=== PATIENT | female | born 1965 | race Two or more races ===

== ENCOUNTER 2020-05-05 15:17 | Outpatient (REF) | payer MEDICARE, MEDICAID, SELFPAY ==
--- NOTE | ~2020-05-05 | US_ITS ---
EXAMINATION: US THYROID CLINICAL INFORMATION: Thyroid nodule COMPARISON: Previous thyroid ultrasound July 2016 TECHNIQUE: Linear transducer grayscale and color Doppler examination with attention to the region of the thyroid. FINDINGS: SIZE: Measurements of the thyroid lobes and nodules are given in sagittal, anteroposterior and transverse dimensions respectively. Right Thyroid Lobe: 5.2 x 2.5 x 1.6 cm, volume 11 mL. Parenchyma: The gland echotexture is heterogeneous. Thyroid vascularity is increased. Left Thyroid Lobe: 5.5 x 2.2 x 2 cm, volume 12 mL. Parenchyma: The gland echotexture is heterogeneous. Thyroid vascularity is increased. Isthmus: 1 cm in maximum AP dimension. Estimated total number of nodules greater than or equal to 1 cm: 1. [employer] nodules are described as follows: 1. Location: Left mid. Size: 1.1 x 0.6 x 0.75 cm, volume 0.26 mL. Nodule characteristics: Composition: Solid (2). Echogenicity: Hyperechoic (1). Shape: Not taller than wide (0). Margins: Smooth (0). Echogenic Foci: None (0). ACR TI-RADS total points: Total 3 ACR TI-RADS category: 3 NODES: No lymphadenopathy is seen in the tissue surrounding the thyroid gland. US/US thyroid IMPRESSION: Enlarged heterogeneous hypervascular thyroid gland. Solitary stable left thyroid nodule. ACR TI-RADS RECOMMENDATIONS: Ultrasound-guided fine-needle aspiration, followup ultrasound, no further follow up. * TR1 (0 point) and TR 2 (2 points): No FNA or follow up * TR3 (3 points): FNA if more than or equal to 2.5 cm in maximum dimension, follow up in 1, 3 and 5 years if 1.5 to 2.4 cm in maximum dimension. * TR4 (4-6 points): FNA if more than or equal to 1.5 cm in maximum dimension, follow up in 1, 2, 3 and 5 years if 1 to 1.4 cm in maximum dimension. * TR5 (more than or equal to 7 points): FNA if more than or equal to 1 cm in maximum dimension, follow up every year for 5 years if 0.5 to 0.9 cm in maximum dimension. * TR3, TR4 or TR5 nodules that are below the size threshold for follow up receive no follow up.
== END 2020-05-05 15:18 | disposition home or self-care (01) ==
LOC: HO.HMGCX 15:17
PROVIDERS: Visit Provider Emergency Medicine
DX: E04.1 Nontoxic single thyroid nodule (principal)
CPT/HCPCS: 76536

== ENCOUNTER 2020-08-03 13:48 | Outpatient (REF) | payer MEDICARE, MEDICAID, SELFPAY ==
--- NOTE | ~2020-08-03 | MM_ITS ---
EXAMINATION: MM SCREENING DIGITAL BREAST TOMOSYNTHESIS, BILATERAL CLINICAL INFORMATION: Screening. Asymptomatic. The lifetime risk of breast cancer based on the Tyrer-Cuzick Model is 3.9%. COMPARISON: Mammography: January 07, 2018 and studies dating back to July 19, 2011 TECHNIQUE: Digital breast tomosynthesis is performed in both the craniocaudal and mediolateral oblique views along with computer-aided detection (CAD). Synthesized 2D images are generated from the tomosynthesis. FINDINGS: There are scattered areas of fibroglandular density (ACR BI-RADS breast composition Category b). There are no significant masses, abnormal calcifications, or other abnormalities. MM/MM tomosynthesis screening BI IMPRESSION: There are no significant changes from prior study. ASSESSMENT: BI-RADS 1: Negative RECOMMENDATION: Routine annual mammography screening. This patient's information was entered into a reminder system with a target due date for their next mammogram.
--- NOTE | ~2020-08-03 | MM_ITS ---
EXAMINATION: BONE DENSITOMETRY CLINICAL INDICATION: Encounter for screening for osteoporosis. Menopausal and female climacteric states. COMPARISON: This is the patient's baseline examination. TECHNIQUE: Using a FlyReadyJet DXA System (software version: 13.1) manufactured by [employer], dual-energy x-ray absorptiometry was performed of the lumbar spine and left hip. The images are of good technical quality. Summary results are attached. FINDINGS: AP SPINE L1-L4: BMD 0.876 g/cm2, Z-score -1.6, T-score -2.5, osteoporosis. LEFT FEMUR, NECK: BMD 0.615 g/cm2, Z-score -1.9, T-score -3.0, osteoporosis. LEFT FEMUR, TOTAL: BMD 0.657 g/cm2, Z-score -2.0, T-score -2.8, osteoporosis. IDENTIFIED RISK FACTORS: Anticonvulsant. Menopause. HISTORY OF FRACTURE: None listed. MEDICATIONS: None listed. MM/XR DEXA axial skeleton IMPRESSION: 1. DIAGNOSIS: Osteoporosis based on the lowest T-score value of -3.0 in the femoral neck applying World Health Organization criteria. 2. 10-YEAR FRACTURE RISK PREDICTION, FRAX: Major osteoporotic fracture (clinical spine, forearm, hip or shoulder) 5.8%. Hip fracture 1.8%. 3. Treatment Recommendations: NOF guidelines recommend consideration for treatment in postmenopausal women and men age 50 and older presenting with the following: -A hip or vertebral (clinical or morphometric) fracture. -T-score less than or equal to -2.5 at the femoral neck or spine after appropriate evaluation to exclude secondary causes. -Low bone mass at the hip or spine and a 10-year fracture probability by FRAX of greater than or equal to 3% for hip fracture or greater than or equal to 20% for major osteoporotic fracture based on the [place] adapted WHO algorithm. 4. Other Recommendations: All treatment decisions require clinical judgment and consideration of individual patient factors, including patient preferences, comorbidities, previous drug use, risk factors not captured in the FRAX model (e.g. frailty, falls, vitamin D deficiency, increased bone turnover, interval significant decline in bone density) and possible under or overestimation of fracture risk by FRAX. Additional medical evaluation for secondary cause of low bone mineral density may be appropriate. FUTURE SCAN RECOMMENDATION: People with diagnosed cases of osteoporosis or at high risk for fracture should have regular bone mineral density tests. For patients eligible for Medicare, routine testing is allowed once every 2 years. The testing frequency can be increased to one year for patients who have rapidly progressing disease, those who are receiving or discontinuing medical therapy to restore bone mass, or have additional risk factors.
== END 2020-08-03 13:49 | disposition home or self-care (01) ==
LOC: HO.MAMMO 13:48
PROVIDERS: PCP Advanced Practice Midwife; Visit Provider Advanced Practice Midwife
DX: Z12.31 Encounter for screening mammogram for malignant neoplasm of breast (principal); Z13.820 Encounter for screening for osteoporosis; R27.0 Ataxia, unspecified; Z78.0 Asymptomatic menopausal state; Z79.899 Other long term (current) drug therapy
CPT/HCPCS: 77063; 77067; 77080

== ENCOUNTER 2021-08-17 15:45 | Outpatient (REF) | payer MEDICARE, MEDICAID, SELFPAY ==
--- NOTE | ~2021-08-17 | MM_ITS ---
EXAMINATION: MM SCREENING DIGITAL BREAST TOMOSYNTHESIS, BILATERAL CLINICAL INFORMATION: Screening. Asymptomatic. The lifetime risk of breast cancer based on the Tyrer-Cuzick Model is 12%. COMPARISON: Mammography: 08/03/2020, 01/07/2018, 12/03/2016 TECHNIQUE: Digital breast tomosynthesis is performed in both the craniocaudal and mediolateral oblique views along with computer-aided detection (CAD). Synthesized 2D images are generated from the tomosynthesis. FINDINGS: There are scattered areas of fibroglandular density (ACR BI-RADS breast composition Category b). There are no significant masses, abnormal calcifications, or other abnormalities. There is punctate deodorant artifact overlying the bilateral axilla, related to the skin on tomography. There is no developing density or interval architectural abnormality. No significant changes. MM/MM tomosynthesis screening BI IMPRESSION: No mammographic evidence of malignancy. ASSESSMENT: BI-RADS 2: Benign RECOMMENDATION: Routine annual mammography screening. This patient's information was entered into a reminder system with a target due date for their next mammogram.
== END 2021-08-17 15:46 | disposition home or self-care (01) ==
LOC: HO.MAMMO 15:45
PROVIDERS: Visit Provider Advanced Practice Midwife
DX: Z12.31 Encounter for screening mammogram for malignant neoplasm of breast (principal)
CPT/HCPCS: 77063; 77067

== ENCOUNTER 2022-06-26 13:21 | Outpatient (REF) | payer MEDICARE, MEDICAID, SELFPAY ==
--- NOTE | ~2022-06-26 | US_ITS ---
EXAMINATION: US THYROID CLINICAL INFORMATION: Nontoxic goiter. COMPARISON: Ultrasound thyroid 05/05/2020 and 08/06/2016. TECHNIQUE: Linear transducer grayscale and color Doppler examination with attention to the region of the thyroid. FINDINGS: SIZE: Measurements of the thyroid lobes and nodules are given in sagittal, anteroposterior and transverse dimensions respectively. Right Thyroid Lobe: 5.2 x 2.8 x 1.8 cm, volume 13.7 mL. Previously 5.2 x 2.5 x 1.6 cm, volume 10.9 mL. Parenchyma: The gland echotexture is heterogeneous. Thyroid vascularity is increased. Left Thyroid Lobe: 5.3 x 2.5 x 2.0 cm, volume 13.9 mL. Previously 5.5 x 2.2 x 2.0 cm, volume 12.2 mL. Parenchyma: The gland echotexture is heterogeneous. Thyroid vascularity is increased. Isthmus: 1.2 cm in maximum AP dimension. Previously 1.0 cm. Estimated total number of nodules greater than or equal to 1 cm: 1. [employer] [place] nodules are described as follows: 1. Location: Left mid. Size: 1.3 x 0.7 x 1.1 cm, volume 0.52 mL. Previously: 1.1 x 0.6 x 0.8 cm, volume 0.26 mL. Nodule characteristics: Composition: Solid (2). Echogenicity: Hyperechoic (1). Shape: Not taller than wide (0). Margins: Ill-defined (0). Echogenic Foci: None (0). ACR TI-RADS total points: 3 Previous: 3 ACR TI-RADS category: 3 Previous: 3 Significant change in size (>/= 20% in 2 dimensions and minimal increase of 2 mm or 50% or greater increase in volume): None. Change in features: None. Change in ACR TI-RADS risk category: None. NODES: No lymphadenopathy is seen in the tissue surrounding the thyroid gland. US/US thyroid IMPRESSION: Heterogeneous hypervascular thyroid gland, likely goiter. Nonsuspicious stable left lobe nodule. ACR TI-RADS RECOMMENDATION REFERENCE: Ultrasound-guided fine-needle aspiration, followup ultrasound, no further followup. * TR1 (0 point) and TR2 (2 points): No FNA or follow up. * TR3 (3 points): FNA if more than or equal to 2.5 cm in maximum dimension, followup ultrasound in 1, 3 and 5 years if 1.5 to 2.4 cm in maximum dimension. * TR4 (4-6 points): FNA if more than or equal to 1.5 cm in maximum dimension, followup ultrasound in 1, 2, 3 and 5 years if 1 to 1.4 cm in maximum dimension. * TR5 (more than or equal to 7 points): FNA if more than or equal to 1 cm in maximum dimension, followup ultrasound every year for 5 years if 0.5 to 0.9 cm in maximum dimension. * TR3, TR4 or TR5 nodules that are below the size threshold for followup receive no follow up.
== END 2022-06-26 13:22 | disposition home or self-care (01) ==
LOC: HO.HMGCX 13:21
PROVIDERS: PCP Advanced Practice Midwife; Visit Provider Pediatrics
DX: E04.9 Nontoxic goiter, unspecified (principal)
CPT/HCPCS: 76536

== ENCOUNTER 2022-08-28 14:11 | Outpatient (REF) | payer MEDICARE, MEDICAID, SELFPAY ==
--- NOTE | ~2022-08-28 | MM_ITS ---
EXAMINATION: MM SCREENING DIGITAL BREAST TOMOSYNTHESIS, BILATERAL CLINICAL INFORMATION: Screening. Asymptomatic. The lifetime risk of breast cancer based on the Tyrer-Cuzick Model is 9%. COMPARISON: Mammography: 08/17/2021, 08/03/2020, 01/07/2018 TECHNIQUE: Digital breast tomosynthesis is performed in both the craniocaudal and mediolateral oblique views along with computer-aided detection (CAD). Synthesized 2D images are generated from the tomosynthesis. FINDINGS: There are scattered areas of fibroglandular density (ACR BI-RADS breast composition Category b). There are no significant masses, abnormal calcifications, or other abnormalities. Parenchymal pattern is similar to prior studies. There is no developing density or architectural abnormality. The axilla and skin contours are unremarkable. No significant changes. MM/MM tomosynthesis screening BI IMPRESSION: No mammographic evidence of malignancy. ASSESSMENT: BI-RADS 1: Negative RECOMMENDATION: Routine annual mammography screening. This patient's information was entered into a reminder system with a target due date for their next mammogram.
== END 2022-08-28 14:12 | disposition home or self-care (01) ==
LOC: HO.MAMMO 14:11
PROVIDERS: PCP Internal Medicine; Visit Provider Internal Medicine
DX: Z12.31 Encounter for screening mammogram for malignant neoplasm of breast (principal)
CPT/HCPCS: 77063; 77067

== ENCOUNTER 2022-10-08 15:32 | Outpatient (AMB) | payer MEDICARE, MEDICAID, SELFPAY ==
--- NOTE | 2022-10-08 15:33 | MHC.OFFVIS ---
Intake Vital Signs 10/08/22 15:35 Height 4 ft 10.46 in Weight 126 lb 8.725 oz BMI 26.0 BP 126/68 Blood Pressure Location Rt brachial Position Sitting Pulse 76 Pulse Source Pulse Oximeter Intake Visit Reasons: Hypothyroidism Intake Note: New patient present today for Hypothyroidism. 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 First diagnosed with Hypothyroidism 4 yrs with labs revealing hypothyroidism . Currently using levothyroxine 75 ug . On this dose for 2 mos Denies -fatigue, +weight gain, -cold intolerance, -dry skin, -hair loss, -constipation. There is hx of hyperlipidemia . admits obstructive sx of goiter such as choking and swallowing . Denies consuming any kelp or seaweed. Denies taking amiodarone. postmenopausal Biotin: No Daughter has hypothyroidism EXAMINATION: US THYROID CLINICAL INFORMATION: Nontoxic goiter. COMPARISON: Ultrasound thyroid 05/05/2020 and 08/06/2016. TECHNIQUE: Linear transducer grayscale and color Doppler examination with attention to the region of the thyroid. FINDINGS: ? SIZE: Measurements of the thyroid lobes and nodules are given in sagittal, anteroposterior and transverse dimensions respectively. Right Thyroid Lobe: 5.2 x 2.8 x 1.8 cm, volume 13.7 mL. Previously 5.2 x 2.5 x 1.6 cm, volume 10.9 mL. Parenchyma: The gland echotexture is heterogeneous. Thyroid vascularity is increased. Left Thyroid Lobe: 5.3 x 2.5 x 2.0 cm, volume 13.9 mL. Previously 5.5 x 2.2 x 2.0 cm, volume 12.2 mL. Parenchyma: The gland echotexture is heterogeneous. Thyroid vascularity is increased. Isthmus: 1.2 cm in maximum AP dimension. Previously 1.0 cm. Estimated total number of nodules greater than or equal to 1 cm: 1. [employer] nodules are described as follows: 1.? Location: Left mid. ?? ? Size: 1.3 x 0.7 x 1.1 cm, volume 0.52 mL. ?? ? Previously: 1.1 x 0.6 x 0.8 cm, volume 0.26 mL. ?? ? Nodule characteristics: ?? ? Composition: Solid (2). ?? ? Echogenicity: Hyperechoic (1). ?? ? Shape: Not taller than wide (0). ?? ? Margins: Ill-defined (0). ?? ? Echogenic Foci: None (0).? ACR TI-RADS total points: 3 Previous: 3 ?? ? ACR TI-RADS category: 3 Previous: 3 ? Significant change in size (>/= 20% in 2 dimensions and minimal increase of 2 mm or 50% or greater increase in volume): None. ?? ? Change in features: None. ?? ? Change in ACR TI-RADS risk category: None. NODES: No lymphadenopathy is seen in the [facility] Medical History (Updated 10/08/22 @ 15:45 by Gen Leon MD) Hypothyroidism Surgical History History of surgery History of tubal ligation Family History Mother No known health problems Father No known health problems Social History Alcohol intake: never Patient Tobacco Use Status: Former Tobacco user Physical Exam Vital Signs: BMI result Body Mass Index 26.0 HEENT reveals absence of lid lag , stare or proptosis or eyebrow loss. Thyroid gland is full to palpation weighs about 20 g . No nodules or tenderness palpated. There is no cervical adenopathy palpated. Lungs CTA. Heart S1, S2 Reg R/R -M/R/G. Abdominal exam benign. Skin exam reveals absence of dryness or thyroid dermopathy or vitiligo. Nail exam reveals absence of thyroid acropachy or oncholysis. Neurologic exam reveals 2+ reflexes . Muscle Strength is 5/5 proximally. There are no tremors in upper extremities. 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 She is currently replaced on 75 mcg levothyroxine. She appears to be clinically euthyroid. She has a small left thyroid nodule which appears to be non suspicious on ultrasound. Plan is to check TSH, free T4 anti-peroxidase antibodies adjust levothyroxine accordingly. We talked extensively about possibly biopsying the left thyroid nodule but the patient is reluctant to do so at the present time and nodule seems to be of low risk and will be followed with serial ultrasounds Orders: Orders Free T4 (Free Thyroxine) Today E03.9 - Hypothyroidism, unspecified Thyroid Stimulating Hormone Today E03.9 - Hypothyroidism, unspecified Thyroid Peroxidase Antibodies Today E03.9 - Hypothyroidism, unspecified Coding Level of Care Code New Pt Level 4 (46301) Diagnoses Hypothyroidism E03.9
[2022-10-08 15:35] VITALS: BP 126/68; PULSE 76; BMI 26.0
== END 2022-10-08 16:23 | disposition home or self-care (01) ==
PROVIDERS: PCP Internal Medicine; Visit Provider Internal Medicine Endocrinology, Diabetes & Metabolism
DX: E03.9 Hypothyroidism, unspecified (principal)
CPT/HCPCS: 99204

== ENCOUNTER → 2022-10-08 15:32 | Outpatient (BNVA) | payer MEDICARE, MEDICAID, SELFPAY | PROVIDERS: Visit Provider Internal Medicine Endocrinology, Diabetes & Metabolism | DX: E03.9 Hypothyroidism, unspecified (principal) | CPT/HCPCS: 99202 ==

== ENCOUNTER 2022-11-11 15:01 | Outpatient (REF) | payer MEDICARE, MEDICAID, SELFPAY ==
[2022-11-11 17:53] LABS: Free T4 (Free Thyroxine) 1.34 ng/dL (0.71-1.85); Thyroid Stimulating Hormone 0.03 uIU/mL (0.32-4.0)
[2022-11-12 10:18] LABS: Thyroid Peroxidase Antibodies >900 IU/mL (<9)
== END 2022-11-11 15:02 | disposition home or self-care (01) ==
LOC: HO.LAB 15:01
PROVIDERS: Visit Provider Internal Medicine Endocrinology, Diabetes & Metabolism
DX: E03.9 Hypothyroidism, unspecified (principal)
CPT/HCPCS: 36415; 84439; 84443; 86376

== ENCOUNTER 2023-03-11 14:17 | Outpatient (REF) | payer OTHER, SELFPAY ==
[2023-03-11 18:01] LABS: Anion Gap 10 (12-20); Blood Urea Nitrogen 14 mg/dL (9-16); Calcium 10.9 mg/dL (8.4-10.2); Carbon Dioxide 27 mmol/L (22-29); Chloride 108 mmol/L (96-108); Estimated Glomerular Filt Rate > 60; Glucose Random 81 mg/dL (60-115); Potassium 4.7 mmol/L (3.3-5.1); Sodium 140 mmol/L (135-145)
[2023-03-11 18:17] LABS: TSH reflex Free T4 2.32 uIU/mL (0.32-4.0)
[2023-03-12 01:56] LABS: Vitamin B12 500 pg/mL (200-900)
== END 2023-03-11 14:18 | disposition home or self-care (01) ==
LOC: HO.CHCLDS 14:17
PROVIDERS: Visit Provider Internal Medicine
DX: R41.3 Other amnesia (principal); E03.9 Hypothyroidism, unspecified
CPT/HCPCS: 36415; 80048; 82607; 82746; 84443

== ENCOUNTER 2023-04-15 13:56 | Outpatient (AMB) | payer MEDICARE, MEDICAID, SELFPAY ==
[2023-04-15 14:05] VITALS: BP 120/58; PULSE 64; BMI 26.1
--- NOTE | 2023-04-15 14:05 | MHC.OFFVIS ---
Intake Vital Signs 04/15/23 14:05 Height 4 ft 10.46 in Weight 126 lb 15.78 oz BMI 26.1 BP 120/58 L Blood Pressure Location Lt brachial Position Sitting Pulse 64 Pulse Source Pulse Oximeter Intake Visit Reasons: f/u hypothyroidism/ thyroid nodule-confirmed Intake Note: Patient presents today for Hypothyroidism and Thyroid Nodule. 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 First diagnosed with Hypothyroidism 4 yrs with labs revealing hypothyroidism . Currently using levothyroxine 50 ug . On this dose for 2 mos Denies -fatigue, +weight gain, -cold intolerance, -dry skin, -hair loss, -constipation. There is hx of hyperlipidemia . admits obstructive sx of goiter such as choking and swallowing . Denies consuming any kelp or seaweed. Denies taking amiodarone. postmenopausal Biotin: No Daughter has hypothyroidism EXAMINATION: US THYROID CLINICAL INFORMATION: Nontoxic goiter. COMPARISON: Ultrasound thyroid 05/05/2020 and 08/06/2016. TECHNIQUE: Linear transducer grayscale and color Doppler examination with attention to the region of the thyroid. FINDINGS: ? SIZE: Measurements of the thyroid lobes and nodules are given in sagittal, anteroposterior and transverse dimensions respectively. Right Thyroid Lobe: 5.2 x 2.8 x 1.8 cm, volume 13.7 mL. Previously 5.2 x 2.5 x 1.6 cm, volume 10.9 mL. Parenchyma: The gland echotexture is heterogeneous. Thyroid vascularity is increased. Left Thyroid Lobe: 5.3 x 2.5 x 2.0 cm, volume 13.9 mL. Previously 5.5 x 2.2 x 2.0 cm, volume 12.2 mL. Parenchyma: The gland echotexture is heterogeneous. Thyroid vascularity is increased. Isthmus: 1.2 cm in maximum AP dimension. Previously 1.0 cm. Estimated total number of nodules greater than or equal to 1 cm: 1. [employer] Crew[employer] nodules are described as follows: 1.? Location: Left mid. ?? ? Size: 1.3 x 0.7 x 1.1 cm, volume 0.52 mL. ?? ? Previously: 1.1 x 0.6 x 0.8 cm, volume 0.26 mL. ?? ? Nodule characteristics: ?? ? Composition: Solid (2). ?? ? Echogenicity: Hyperechoic (1). ?? ? Shape: Not taller than wide (0). ?? ? Margins: Ill-defined (0). ?? ? Echogenic Foci: None (0).? ACR TI-RADS total points: 3 Previous: 3 ?? ? ACR TI-RADS category: 3 Previous: 3 ? Significant change in size (>/= 20% in 2 dimensions and minimal increase of 2 mm or 50% or greater increase in volume): None. ?? ? Change in features: None. ?? ? Change in ACR TI-RADS risk category: None. NODES: No lymphadenopathy is seen in the ti [facility] Medical History (Updated 10/08/22 @ 15:45 by Gen Leon MD) Hypothyroidism Surgical History History of tubal ligation History of surgery Family History Mother No known health problems Father No known health problems Social History Alcohol intake: never Patient Tobacco Use Status: Former Tobacco user Physical Exam Vital Signs: Last Vital Signs Pulse 64 04/15/23 14:05 BP 120/58 L 04/15/23 14:05 BMI result Body Mass Index 26.1 HEENT reveals absence of lid lag , stare or proptosis or eyebrow loss. Thyroid gland is full to palpation weighs about 20 g . No nodules or tenderness palpated. There is no cervical adenopathy palpated. Lungs CTA. Heart S1, S2 Reg R/R -M/R/G. Abdominal exam benign. Skin exam reveals absence of dryness or thyroid dermopathy or vitiligo. Nail exam reveals absence of thyroid acropachy or oncholysis. Neurologic exam reveals 2+ reflexes . Muscle Strength is 5/5 proximally. There are no tremors in upper extremities. 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 She is currently replaced on 50 mcg levothyroxine. She appears to be clinically and biochemically euthyroid. She has a small left thyroid nodule which appears to be non suspicious on ultrasound. Plan is to continue the current therapy. At this point, patient can follow up with the primary care provider who can check a thyroid ultrasound in about 1-2 years time. If his any difficulty maintaining a normal TSH with the [place] change in the size or characteristics of the nodule , the patient returned back to endocrinology Coding Level of Care Code Est Pt Level 3 (32982) Diagnoses Hypothyroidism E03.9
== END 2023-04-15 14:28 | disposition home or self-care (01) ==
PROVIDERS: PCP Internal Medicine; Visit Provider Internal Medicine Endocrinology, Diabetes & Metabolism
DX: E03.9 Hypothyroidism, unspecified (principal)
CPT/HCPCS: 99213

== ENCOUNTER → 2023-04-15 13:56 | Outpatient (BNVA) | payer OTHER, SELFPAY | PROVIDERS: PCP Internal Medicine; Visit Provider Internal Medicine Endocrinology, Diabetes & Metabolism | DX: E03.8 Other specified hypothyroidism (principal); E06.3 Autoimmune thyroiditis; Z79.899 Other long term (current) drug therapy | CPT/HCPCS: 99212 ==

== ENCOUNTER 2023-04-29 14:30 | Outpatient (AMB) | payer OTHER, SELFPAY ==
--- NOTE | 2023-04-29 14:44 | A.OFFVIS_ITS ---
Intake Vital Signs 04/29/23 14:51 Height 4 ft 10 in Weight 122 lb BMI 25.5 BP 113/61 Blood Pressure Location Lt brachial Position Sitting Pulse 75 Intake Visit Reasons: Postive colorectal CA screening using cologuard Intake Note: New consult for Positive cologuard. Patient cc: acid reflex with burning sensation. Senior Customer Service Representative Required: No Accompanied by: Mother Allergies No Known Allergies Allergy (Verified 04/29/23 14:43) HPI Postive colorectal CA screening using cologuard 2 HPI Details 57 year old? female with past medical hi story of hypothyroidism, hypercholesteremia, history of seizure as a child, Craniotomy x2 is here today for pre colonoscopy screening.? Patient was sent to us by her PCP.? This is her first colonoscopy screening.? Patient had positive Cologuard testing. Denies melena, hematochezia, unintentional weight loss or ribbon like stools. Patient denies any gastrointestinal symptoms in the past or at present.? Denies any personal or family history of gastrointestinal disease, colon polyps, or cancer.? In 1988 patient had been put under anesthesia for craniotomy to remove tumor and she had severe reaction when she went into a coma for 2 weeks. Patient had another surgery for same in 1995, patient did well with that surgery no issues with anesthesia. She does not remember what kind of medication was used for her 1st surgery. ? Negative for history of sleep apnea.? Denies any history of cardiac, renal, pulmonary, or hepatic disease.?? No history of infectious? diseases like hepatitis A, B, C, HIV or tuberculosis.? Patient is not on any anticoagulation therapy. [facility] Medical History (Updated 10/08/22 @ 15:45 by Gen Leon MD) Hypothyroidism Surgical History History of tubal ligation History of surgery Family History Mother No known health problems Father No known health problems Social History Alcohol intake: never Patient Tobacco Use Status: Former Tobacco user Review of Systems Const Denies weight gain and Denies weight loss ENT Reports no additional complaints, Denies dysphagia and Denies odynophagia Card Reports no additional complaints Resp Reports no additional complaints GI Denies abdominal pain, Denies belching, Denies melena, Denies bloating, Denies change in bowel habits, Reports constipation, Denies dysphagia, Denies excessive flatus, Denies dyspepsia, Reports heartburn (Occasional), Denies diarrhea, Denies loose stools, Denies nausea, Denies odynophagia and Denies vomiting Reports no additional complaints Musc Reports no additional complaints Neuro Reports no additional complaints Psych Reports no additional complaints Endo Reports no additional complaints Physical Exam Vital Signs: Last Vital Signs Pulse 75 04/29/23 14:51 BP 113/61 04/29/23 14:51 BMI result Body Mass Index 25.5 Const General: healthy appearing, no acute distress and well developed Nutritional Appearance: well nourished Orientation/consciousness: patient oriented x3 Resp Effort & Inspection: normal respiratory effort, able to speak in complete sentences, no tracheal deviation and symmetric chest movement Auscultation: clear to auscultation bilaterally Cardio Rate: regular rate GI Inspection: Yes normal to inspection and No distended Palpation (GI): Soft to palpation, not firm, nontender and No hepatosplenomegaly present Auscultation: normal bowel sounds General: Yes no CVA tenderness Back/Spine/Pelvis Back: no CVA tenderness Skin General skin exam: elasticity normal, turgor normal and dry skin Neuro General: patient oriented x3 Psych Appearance: grossly normal Mental Status: mental status grossly normal Assessment & Plan Assessment & Plan (1) Positive colorectal cancer screening using Cologuard test: Code(s): R19.5 - Other fecal abnormalities (2) GERD (gastroesophageal reflux disease): Code(s): K21.9 - Gastro-esophageal reflux disease without esophagitis Qualifiers: Esophagitis presence: esophagitis presence not specified Qualified Code(s): K21.9 - Gastro-esophageal reflux disease without esophagitis Plan Patient denies any GI, cardiac or respiratory symptoms.? Patient does admit to occasional acid reflux depending on what she eats. Cologuard positive. Denies any history of sleep apnea.? No history infectious diseases in the past or present.? Not on any anticoagulation therapy.? No family or personal history of colon cancer or polyps.? Patient denies melena, hematochezia, unintentional weight loss or ribbon like stools.? Discussed at length the pre-procedure,? prep, diet & medications as well as what to expect prior, during and after the procedure.?? Stressed the importance of good bowel prep. ?Recommended the use of Vaseline or Calmoseptine OTC & baby wipes with bowel movements to promote comfort.? ?Patient verbalizes understanding and agrees to plan of care.? She was given the opportunity to ask questions and all questions answered.? We will see her after the procedure.? Medications: New bisacodyl (Dulcolax (bisacodyl)) take 4 tabs at noon the day before your colonoscopy 20 mg (4 x 5 mg) PO ONCE 1 day 4 tabs 0RF Z12.11 - Encounter for screening for malignant neoplasm of colon polyethylene glycol 3350 (Miralax) As directed by gastroenterology department at [facility] 238 grams PO ONCE 238 grams 0RF Z12.11 - Encounter for screening for malignant neoplasm of colon Coding Level of Care Code New Pt Level 3 (64229) Diagnoses Positive colorectal cancer screening using Cologuard test R19.5 Gastroesophageal reflux disease, unspecified whether esophagitis present K21.9 Esophagitis presence: esophagitis presence not specified Time Spent (min) 40 Comment 30 minutes spent with patient and additional 10 minutes spent reviewing her records
[2023-04-29 14:51] VITALS: BP 113/61; PULSE 75; BMI 25.5
== END 2023-04-29 15:19 | disposition home or self-care (01) ==
PROVIDERS: PCP Internal Medicine; Visit Provider Nurse Practitioner Family
DX: R19.5 Other fecal abnormalities (principal); K21.9 Gastro-esophageal reflux disease without esophagitis
CPT/HCPCS: 99203

== ENCOUNTER → 2023-04-29 14:30 | Outpatient (BNVA) | payer OTHER, SELFPAY | PROVIDERS: PCP Internal Medicine; Visit Provider Nurse Practitioner Family | DX: R19.5 Other fecal abnormalities (principal); K21.9 Gastro-esophageal reflux disease without esophagitis | CPT/HCPCS: 99202 ==

== ENCOUNTER 2023-05-13 12:14 | Outpatient (REF) | payer OTHER, SELFPAY ==
--- NOTE | ~2023-05-13 | XR_ITS ---
EXAMINATION: XR HIP, RIGHT XR LUMBAR SPINE CLINICAL INFORMATION: Right hip pain after fall in a patient with osteoporosis. COMPARISON: None available. TECHNIQUE: AP and lateral views of the right hip. 3 views of the lumbar spine. FINDINGS: RIGHT HIP: Small pelvic calcifications are likely vascular. Right hip alignment is preserved. Mild degenerative changes in the right hip. The bones are diffusely demineralized. LUMBAR SPINE: Mild degenerative changes in the bilateral sacroiliac joints. The bones are diffusely demineralized. Facet arthritis in the mid to lower lumbar spine. Mild degenerative changes in the imaged lower thoracic spine. For the purposes of this report only, the most inferior vertebral body with what appear to be hypoplastic ribs will be referred to as T12. Dedicated imaging of the spine is recommended to assure appropriate enumeration of vertebral body levels prior to any procedure/intervention. Multilevel lumbar spondylosis with moderate loss of disc space height at what will be referred to as L4 and L5. Grade 1 anterolisthesis at L4-L5. Degenerative changes of loss of disc space height at S1. Possible spondylolysis at L4-L5 and L5-S1. XR/XR hip RT min 2V IMPRESSION: 1. Mild degenerative changes in the right hip. 2. Multilevel lumbar spondylosis with moderate loss of disc space height at what will be referred to as L4 and L5. Grade 1 anterolisthesis at L4-L5. Possible spondylolysis at L4-L5 and L5-S1. 3. Additional imaging with MRI should be considered for further evaluation for this patient with bony demineralization and recent fall as MRI is much more sensitive for detection of pathology.
--- NOTE | ~2023-05-13 | XR_ITS ---
EXAMINATION: XR HIP, RIGHT XR LUMBAR SPINE CLINICAL INFORMATION: Right hip pain after fall in a patient with osteoporosis. COMPARISON: None available. TECHNIQUE: AP and lateral views of the right hip. 3 views of the lumbar spine. FINDINGS: RIGHT HIP: Small pelvic calcifications are likely vascular. Right hip alignment is preserved. Mild degenerative changes in the right hip. The bones are diffusely demineralized. LUMBAR SPINE: Mild degenerative changes in the bilateral sacroiliac joints. The bones are diffusely demineralized. Facet arthritis in the mid to lower lumbar spine. Mild degenerative changes in the imaged lower thoracic spine. For the purposes of this report only, the most inferior vertebral body with what appear to be hypoplastic ribs will be referred to as T12. Dedicated imaging of the spine is recommended to assure appropriate enumeration of vertebral body levels prior to any procedure/intervention. Multilevel lumbar spondylosis with moderate loss of disc space height at what will be referred to as L4 and L5. Grade 1 anterolisthesis at L4-L5. Degenerative changes of loss of disc space height at S1. Possible spondylolysis at L4-L5 and L5-S1. XR/XR lumbar spine 2-3V IMPRESSION: 1. Mild degenerative changes in the right hip. 2. Multilevel lumbar spondylosis with moderate loss of disc space height at what will be referred to as L4 and L5. Grade 1 anterolisthesis at L4-L5. Possible spondylolysis at L4-L5 and L5-S1. 3. Additional imaging with MRI should be considered for further evaluation for this patient with bony demineralization and recent fall as MRI is much more sensitive for detection of pathology.
== END 2023-05-13 12:15 | disposition home or self-care (01) ==
LOC: HO.XRAY 12:14
PROVIDERS: PCP Internal Medicine; Visit Provider Internal Medicine
DX: M25.551 Pain in right hip (principal); M54.50 Low back pain, unspecified
CPT/HCPCS: 72100; 73502

== ENCOUNTER 2023-06-03 09:06 | Day surgery (SDC) | payer OTHER, SELFPAY ==
--- NOTE | 2023-06-02 09:02 | P.CONAN_ITS ---
Documented by User: Evangelina Singh NP 06/02/23 09:04 HPI - Anesthesia Eval Consult details Narrative: 57yo F for Colonoscopy [facility] Active Problems Active Problems: All Active Problems (Updated 10/08/22 @ 15:45 by Gen Leon MD) Hypothyroidism (Acute) Past Medical History Medical History (Updated 06/03/23 @ 09:51 by Deirdre Mendoza, JAZMINE) CVA (cerebral vascular accident) Hypothyroidism Family History Family History Mother No known health problems Father No known health problems Surgical History Surgical History History of tubal ligation History of surgery Social History Social History Alcohol intake: never Patient Tobacco Use Status: Former Tobacco user Advance Directives: No Advance Directives Information Provided: Yes Meds Allergies Allergy/AdvReac Type Severity Reaction Status Date / Time No Known Allergies Allergy Verified 04/29/23 14:43 Home Medications Medication Instructions Recorded Confirmed Last Taken Type alendronate 70 mg tablet 70 mg PO QWEEK 10/08/22 06/03/23 Unknown History calcium carbonate 500 mg-vitamin 1 tab PO BEDTIME 10/08/22 06/03/23 Unknown History D3 10 mcg (400 unit) chewable tablet cholecalciferol (vitamin D3) 25 25 mcg PO BEDTIME 10/08/22 06/03/23 Unknown History mcg (1,000 unit) tablet rosuvastatin 40 mg tablet 40 mg PO DAILY 06/03/23 06/03/23 Unknown History Assessment and Plan Assessment Anesthesia Assessment: Chart Reviewed Documented by User: Gurdeep Devries MD 06/03/23 10:17 [facility] Past Medical History Medical History (Updated 06/03/23 @ 09:51 by Deirdre Mendoza, JAZMINE) CVA (cerebral vascular accident) Hypothyroidism Family History Family History Mother No known health problems Father No known health problems Family history of problems with anesthesia: No Surgical History Surgical History History of tubal ligation History of surgery History of Problems with Anesthesia: No Social History Social History Alcohol intake: never Patient Tobacco Use Status: Former Tobacco user Advance Directives: No Advance Directives Information Provided: Yes Meds Allergies Allergy/AdvReac Type Severity Reaction Status Date / Time No Known Allergies Allergy Verified 04/29/23 14:43 Home Medications Medication Instructions Recorded Confirmed Last Taken Type alendronate 70 mg tablet 70 mg PO QWEEK 10/08/22 06/03/23 Unknown History calcium carbonate 500 mg-vitamin 1 tab PO BEDTIME 10/08/22 06/03/23 Unknown History D3 10 mcg (400 unit) chewable tablet cholecalciferol (vitamin D3) 25 25 mcg PO BEDTIME 10/08/22 06/03/23 Unknown History mcg (1,000 unit) tablet rosuvastatin 40 mg tablet 40 mg PO DAILY 06/03/23 06/03/23 Unknown History Exam Airway TM Dist: >3cm Neck ROM: Full Heart: ok Lungs: ok Assessment and Plan Assessment Anesthesia Assessment: Anesthesia Plan Discussed Final Anesthetic Review Family History of Problems with Anesthesia: No History of Problems with Anesthesia: No NPO: Yes ASA Class: III Final Preanesthetic Review: No Changes in Pt Med Stat, Meds/Allgs Chart Reviewed, Consent Obtained/Reviewed and Anes Risks/Benef Reviewed Patient Risk: Intermediate Procedure Risk: Low Anesthetic Plan Anesthetic Plan: MAC: and Agree w/ Assess. and Plan Disposition: Standard PACU
[2023-06-03 09:30] VITALS: BMI 25.0
--- NOTE | 2023-06-03 09:37 | MHC.SHP ---
Pre-Procedural Eval Section A - 24 Hr Update-Section A only Date of Service: 06/03/23 The patient is an INPATIENT: No The patient has been examined within 24 hours of the surgical procedure. The History & Physical has been completed within 30 days and I have reviewed it.: No Section B - Complete if H&P > 30 days Chief Complaint: Other fecal abnormalities Relevant Family History (Specify if Yes): No Relevant Social History: Tobacco Use (Former smoker) Present Medications: see Short Stay Collaborative assessment Medical History: Significant History (Hypothyroidism) History of Previous Operations: Relevant previous surgery/procedure and date(s) (History of tubal ligation History of surgery) Allergies: Allergies Allergy/AdvReac Type Severity Reaction Status Date / Time No Known Allergies Allergy Verified 04/29/23 14:43 Review of Systems Sugical H&P ROS: Negative: Constitution, Cardiovascular, Respiratory and Gastrointestinal Exam Surgical H&P Exam: Normal: Heart, Normal: Lungs, Normal: Extremities and Normal: Abdomen Plan Diagnosis/Plan: Unchanged I have reviewed the history and physical and performed a pertinent physical examination on my patient. No changes have occurred unless specified. Time Spent With Patient Time: Total time managing care of this patient today ____ minutes.
[2023-06-03 09:57] VITALS: BP 118/56; PULSE 90; RESP 18; TEMP 36.6; O2SAT 97
[2023-06-03] MEDS: Lactated Ringers 1,000 ML 100 ML IVCONT (10:07)
--- NOTE | 2023-06-03 10:16 | W.PM.OPN ---
Operative Note Operative Note Date of Service: 06/03/23 Narrative: COLONOSCOPY TILL CECUM WITH SNARE POLYPECTOMY SUBMUCOSAL INJECTION AND HEMOCLIP PLACEMENT Pre-op diagnosis: Colon cancer screening (1st colonoscopy). Post-op diagnosis:? Colon Polyps, Diverticulosis. Endoscopist:? Maynor Murray MD Anesthesia:?MAC Consent: Indications for the procedure and potential complications of bleeding, perforation, reaction to medications and missed diagnosis were discussed with the patient and informed consent was obtained. Instrument: Olympus PCF H 190 L variable stiffness pediatric colonoscope Monitoring: Vital signs and clinical assessment, intermittent blood pressure monitoring, continuous EKG monitoring, Pulse oximetry and Carbon Dioxide monitoring were done throughout the procedure. Please see anesthesia flowsheet. Colon withdrawl time was 20 minutes. Procedure: The patient was placed in the left lateral decubitis position and pre-procedure medications were administered. After a digital rectal examination of the ano-rectum, the video colonoscope was inserted into the rectum and advanced through the colon to the cecum. The colonoscope was slowly withdrawn in a retrograde panoramic fashion and the colon mucosa was carefully examined including a retroflexed view of the rectum. Findings and interventions are described below. Procedure Difficulty: without difficulty Findings: Terminal Ileum: Not evaluated Cecum: Normal Ascending Colon: Normal Transverse Colon: A 2 cms elongated polyp in the proximal TC at 55 cms. Polyp was raised with 7 cc of Eleview and removed with a hot snare. Polypectomy site was closed with 1 hemoclip. Descending Colon: Normal Sigmoid Colon: A 2 cms sessile polyp at 35 cms - removed with a hot snare. Polypectomy site was closed with 1 hemoclip. A 10 - 12 mm sessile polyp at 25 cms - removed with a hot snare Moderate diverticulosis Rectum: Normal Ano-rectum: Normal Colon preparation: Excellent . [place] Bowel Preparation Scale Right colon; 3 Transverse colon: 3 Left colon; 3 (0 = Unprepared colon segment with mucosa not seen due to solid stool that cannot be cleared. 1 = Portion of mucosa of the colon segment seen, but other areas of the colon segment not well seen due to staining, residual stool and/or opaque liquid. 2 = Minor amount of residual staining, small fragments of stool and/or opaque liquid, but mucosa of colon segment seen well. 3 = Entire mucosa of colon segment seen well with no residual staining, small fragments of stool or opaque liquid) Impression and Post Procedure Diagnosis: Colonoscopy Findings: Three medium sized polyps were removed Moderate diverticulosis seen in the sigmoid colon Plan: Pt has a FU appointment on 06/17/23 with Shantal Santos Repeat Colonoscopy in 3-5 years if polyps are adenomatous and 10 year if polyps are hyperplastic. Above findings were reviewed with the patient and relevant handouts were given and the discharge area. BIOPSIES SHOWED: A. Colon, at 55 cm, polyp: Focal serrated epithelium suggesting sessile serrated lesion/polyp without dysplasia. B. Colon, sigmoid at 35 cm, polyp: Tubular adenoma, completely excised; negative for high-grade dysplasia and carcinoma. C. Colon, sigmoid, polyp: Hyperplastic polyp Letter sent advising repeat colon in 3 years.
[2023-06-03 11:19] VITALS: BP 84/52; PULSE 64; RESP 16; TEMP 36.1; O2SAT 98
[2023-06-03 11:30] VITALS: BP 129/82; PULSE 58; RESP 16; O2SAT 98
[2023-06-03 11:45] VITALS: BP 145/79; PULSE 64; RESP 16; O2SAT 98
[2023-06-03 12:00] VITALS: BP 142/78; PULSE 68; RESP 16; TEMP 36.6; O2SAT 96
== END 2023-06-03 12:39 | disposition home or self-care (01) ==
PROVIDERS: PCP Internal Medicine; Visit Provider Internal Medicine Gastroenterology
PROC: 0DJD8ZZ Inspection of Lower Intestinal Tract, Via Natural or Artificial Opening Endoscopic (ICD-10-PCS; CPT 45378; principal; 2023-06-03 10:10)
DX: D12.5 Benign neoplasm of sigmoid colon (principal); K57.30 Diverticulosis of large intestine without perforation or abscess without bleeding; R19.5 Other fecal abnormalities; E78.00 Pure hypercholesterolemia, unspecified; E03.9 Hypothyroidism, unspecified; Z98.51 Tubal ligation status
CPT/HCPCS: 45385; 45381; 88305; J2704; J3010

== ENCOUNTER → 2023-06-03 09:06 | Outpatient (BNV) | payer OTHER, SELFPAY | PROVIDERS: PCP Internal Medicine; Visit Provider Internal Medicine Gastroenterology | DX: Z12.11 Encounter for screening for malignant neoplasm of colon (principal); D12.5 Benign neoplasm of sigmoid colon; K57.30 Diverticulosis of large intestine without perforation or abscess without bleeding | CPT/HCPCS: 45381; 45385 ==

== ENCOUNTER 2023-06-17 14:19 | Outpatient (AMB) | payer OTHER, SELFPAY ==
--- NOTE | 2023-06-17 14:22 | MHC.OFFVIS ---
Intake Vital Signs 06/17/23 14:23 Height 4 ft 11 in Weight 126 lb 15.78 oz BMI 25.6 BP 114/68 Blood Pressure Location Lt brachial Position Sitting Pulse 66 Intake Visit Reasons: S/P [place]; Dr. Murray Intake Note: Kathie returns to in office follow up s/p colonoscopy on 06/03/23. CC: Patient reports doing well and denies having any GI symptoms today. Coding Quality Coordinator Required: No Accompanied by: LINER INSERTER/daughter in law Allergies No Known Allergies Allergy (Verified 06/17/23 14:30) HPI S/P [place]; Dr. Murray HPI Details Positive colorectal cancer screening using Cologuard test GERD (gastroesophageal reflux disease) Plan Patient denies any GI, cardiac or respiratory symptoms.? Patient does admit to occasional acid reflux depending on what she eats. Cologuard positive. Denies any history of sleep apnea.? No history infectious diseases in the past or present.? Not on any anticoagulation therapy.? No family or personal history of colon cancer or polyps.? Patient denies melena, hematochezia, unintentional weight loss or ribbon like stools.? Discussed at length the pre-procedure,? prep, diet & medications as well as what to expect prior, during and after the procedure.?? Stressed the importance of good bowel prep. ?Recommended the use of Vaseline or Calmoseptine OTC & baby wipes with bowel movements to promote comfort.? ?Patient verbalizes understanding and agrees to plan of care.? She was given the opportunity to ask questions and all questions answered.? We will see her after the procedure.? Medications New bisacodyl (Dulcolax (bisacodyl)) take 4 tabs at noon the day before your colonoscopy 20 mg (4 x 5 mg) PO ONCE 1 day 4 tabs 0RF Z12.11 polyethylene glycol 3350 (Miralax) As directed by gastroenterology department at [facility] 238 grams PO ONCE 238 grams 0RF Z12.11 COLONOSCOPY Findings: Terminal Ileum: Not evaluated Cecum: Normal Ascending Colon: Normal Transverse Colon: A 2 cms elongated polyp in the proximal TC at 55 cms. Polyp was raised with 7 cc of [place] and removed with a hot snare. Polypectomy site was closed with 1 hemoclip. Descending Colon: Normal Sigmoid Colon: A 2 cms sessile polyp at 35 cms - removed with a hot snare. Polypectomy site was closed with 1 hemoclip. A 10 - 12 mm sessile polyp at 25 cms - removed with a hot snare Moderate diverticulosis Rectum: Normal Ano-rectum: Normal Colon preparation: Excellent . [place] Bowel Preparation Scale Right colon; 3 Transverse colon: 3 Left colon; 3 (0 = Unprepared colon segment with mucosa not seen due to solid stool that cannot be cleared. 1 = Portion of mucosa of the colon segment seen, but other areas of the colon segment not well seen due to staining, residual stool and/or opaque liquid. 2 = Minor amount of residual staining, small fragments of stool and/or opaque liquid, but mucosa of colon segment seen well. 3 = Entire mucosa of colon segment seen well with no residual staining, small fragments of stool or opaque liquid) Impression and Post Procedure Diagnosis: Colonoscopy Findings: Three medium sized polyps were removed Moderate diverticulosis seen in the sigmoid colon Plan: Repeat Colonoscopy in 3-5 years if polyps are adenomatous and 10 year if polyps are hyperplastic. Above findings were reviewed with the patient and relevant handouts were given and the discharge area. BIOPSIES SHOWED: A. Colon, at 55 cm, polyp: Focal serrated epithelium suggesting sessile serrated lesion/polyp without dysplasia. B. Colon, sigmoid at 35 cm, polyp: Tubular adenoma, completely excised; negative for high-grade dysplasia and carcinoma. C. Colon, sigmoid, polyp: Hyperplastic polyp Letter sent advising repeat colon in 3 years. TODAY'S VISIT Patient is here today for follow-up and to discuss colonoscopy results. Sessile serrated polyp and tubular adenoma found on colonoscopy without high-grade dysplasia or carcinoma. Third polyp was hyperplastic. Patient is here with her LINER INSERTER. Biopsy results and colonoscopy results discussed with patient. Patient denies any ill effects from the prep, anesthesia or procedure itself. Patient reports that she is feeling well. Denies any GI concerning symptoms except for occasional constipation. Patient admits that she does not drink water at all. Her LINER INSERTER will get her to drink water. Patient denies any GI symptoms today. [facility] Medical History (Updated 06/17/23 @ 14:45 by Caterina Santos [facility]) Diverticulosis Tubular adenoma of colon CVA (cerebral vascular accident) Hypothyroidism Surgical History (Updated 06/17/23 @ 14:29 by Jo Ann Lino [facility]) H/O colonoscopy History of tubal ligation History of surgery Family History Mother No known health problems Father No known health problems Social History Alcohol intake: never Patient Tobacco Use Status: Former Tobacco user Review of Systems Const Denies weight gain and Denies weight loss ENT Reports no additional complaints, Denies dysphagia and Denies odynophagia Card Reports no additional complaints Resp Reports no additional complaints GI Denies abdominal pain, Denies belching, Denies melena, Denies bloating, Denies change in bowel habits, Denies dysphagia, Denies excessive flatus, Denies dyspepsia, Denies heartburn, Denies diarrhea, Denies loose stools, Denies nausea, Denies odynophagia and Denies vomiting Musc Reports no additional complaints Neuro Reports no additional complaints Psych Reports no additional complaints Endo Reports no additional complaints Physical Exam Vital Signs: BMI result Body Mass Index 25.6 Const General: no acute distress Nutritional Appearance: well nourished Orientation/consciousness: patient oriented x3 Resp Effort & Inspection: normal respiratory effort, able to speak in complete sentences, no tracheal deviation and symmetric chest movement Auscultation: clear to auscultation bilaterally Cardio Rate: regular rate GI Inspection: Yes normal to inspection and No distended Palpation (GI): Soft to palpation, not firm, nontender and No hepatosplenomegaly present Auscultation: normal bowel sounds General: Yes no CVA tenderness Back/Spine/Pelvis Back: no CVA tenderness Skin General skin exam: elasticity normal, turgor normal and dry skin Neuro General: patient oriented x3 Psych Appearance: grossly normal Mental Status: mental status grossly normal Assessment & Plan Assessment & Plan (1) Tubular adenoma of colon: Code(s): D12.6 - Benign neoplasm of colon, unspecified (2) Diverticulosis: Code(s): K57.90 - Diverticulosis of intestine, part unspecified, without perforation or abscess without bleeding (3) Positive colorectal cancer screening using Cologuard test: Code(s): R19.5 - Other fecal abnormalities Plan Tubular adenoma found without high-grade dysplasia or carcinoma. Recommendation to repeat colonoscopy in 3 years. Patient was found to have diverticulosis of sigmoid colon. Patient will increase fiber in her diet. Patient will increase fluid intake and activity to promote better bowel motility. Patient denies any GI concerning symptoms and will follow-up in our office on as needed basis. Patient is agreeable to this plan and verbalizes understanding of instructions. She was given the opportunity to ask questions all questions answered. Thank you for allowing me to participate in her care Coding Level of Care Code Est Pt Level 3 (24987) Diagnoses Tubular adenoma of colon D12.6 Diverticulosis K57.90 Positive colorectal cancer screening using Cologuard test R19.5 Time Spent (min) 25 Comment 15 minutes spent with patient and additional 10 minutes spent reviewing her records
[2023-06-17 14:23] VITALS: BP 114/68; PULSE 66; BMI 25.6
== END 2023-06-17 15:18 | disposition home or self-care (01) ==
PROVIDERS: PCP Internal Medicine; Visit Provider Nurse Practitioner Family
DX: D12.6 Benign neoplasm of colon, unspecified (principal); K57.90 Diverticulosis of intestine, part unspecified, without perforation or abscess without bleeding; R19.5 Other fecal abnormalities
CPT/HCPCS: 99213

== ENCOUNTER → 2023-06-17 14:19 | Outpatient (BNVA) | payer OTHER, SELFPAY | PROVIDERS: PCP Internal Medicine; Visit Provider Nurse Practitioner Family | DX: K57.90 Diverticulosis of intestine, part unspecified, without perforation or abscess without bleeding (principal); D12.6 Benign neoplasm of colon, unspecified; R19.5 Other fecal abnormalities | CPT/HCPCS: 99212 ==

== ENCOUNTER 2023-06-23 08:37 | Emergency (ER) | payer OTHER, SELFPAY ==
--- NOTE | ~2023-06-23 | CT_ITS ---
EXAMINATION: CT HEAD WITHOUT CONTRAST CLINICAL INFORMATION: Head pressure and unsteadiness. COMPARISON: Head CT from 10/13/2016. TECHNIQUE: Contiguous axial imaging was performed from the skull base to vertex without intravenous administration of contrast. This CT examination was performed using dose optimization techniques as appropriate, variously including the following: *Automated exposure control *Adjustment of mA and/or kV according to patient size (this includes techniques or standardized protocols for targeted exams where dose is matched to indication/reason for exam; i.e. extremities or head) *Use of iterative reconstruction technique DLP: 867 mGy-cm FINDINGS: Patient motion is observed on initial scan and therefore some of the images were repeated. There is an old surgical defect/samina hole of the right frontal calvarium. Also, there is postoperative deformity of the right petrous and mastoid temporal bone and adjacent occipital bone. A few old clustered calcific densities are present in the lateral aspect of the right cerebellar hemisphere. No intracranial hemorrhage, extra-axial surface collection, focal mass effect or midline shift. Chronic hypoattenuation from gliosis/encephalomalacia in the right frontal lobe. No evidence of an acute major vascular territory infarction. Mild parenchymal volume loss with commensurate prominence of ventricles and sulci; no hydrocephalus. No acute abnormalities within the posterior fossa. The cerebellar tonsils are normal position. The visualized paranasal sinuses are well aerated. There is chronic fatty atrophy of the right parotid gland. An old, mildly complicated cystic-appearing focus is seen around the styloid process at superomedial aspect of the right parotid. CT/CT head/brain wo IV con IMPRESSION: * No intracranial hemorrhage or other acute intracranial pathology compared to 10/13/2016. * Chronic encephalomalacia within the right frontal lobe. * There are chronic postoperative changes, and an old predominantly cystic-appearing focus is seen adjacent to the right styloid process superomedial to the right parotid gland. There are no new soft tissue abnormalities.
[2023-06-23 08:46] VITALS: BP 118/93; BP 160/80; PULSE 70; PULSE 72; RESP 16; TEMP 36.6; O2SAT 95; O2SAT 98; BMI 24.8
[2023-06-23 08:49] VITALS: BP 118/93; PULSE 71; RESP 16; TEMP 36.6; O2SAT 98
--- NOTE | 2023-06-23 08:51 | PC.NURSE ---
Pt presents from home via EMS, called for dizziness that she woke up with 1 hour ago. Also reports nausea and pressure in her ears, reports similar episodes in past due to issues with her ears. Does have hx of stroke in 1988. No unilateral weakness, arm drift, slurred speech or facial droop at this time. Pt denies any pain, sob, CP, vomiting, fevers, cough. Pt is alert and oriented, breathing even and unlabored, skin WNL. VSS.
--- NOTE | 2023-06-23 09:13 | ED.GENADULT ---
HPI - General Adult General Chief complaint: Dizziness Stated complaint: WOKE UP DIZZY PER EMS Time Seen by Provider: 06/23/23 09:13 Source: patient, family (patient's mother) and EMS Mode of arrival: EMS Limitations: no limitations History of Present Illness HPI narrative: Patient is a 57 year old assigned female at with a history of hypothyroidism, diverticulosis, and CVA causing permanent left sided deficit presenting to the emergency department today with dizziness. Patient states that this morning she woke up with some dizziness and nausea. Patient denies any lightheadedness, abdominal pain, nausea, vomiting, fever, chills, blurry vision, double vision, loss of vision, chest pain, difficulty breathing, shortness of breath, back pain, night sweats, pain with urination, increased urinary frequency, increased urinary urgency, blood in her urine or stool, syncope or a near syncopal episode, recent trauma or falls, bowel incontinence, bladder incontinence, bowel retention, bladder retention, or any other complaints at this time. Onset (ago): hour(s) Relieving factors: none Exacerbating factors: none Associated symptoms: nausea/vomiting Treatments prior to arrival: none Related Data Home Medications Medication Instructions Recorded Confirmed alendronate 70 mg tablet 70 mg PO QWEEK 10/08/22 06/03/23 calcium carbonate 500 mg-vitamin 1 tab PO BEDTIME 10/08/22 06/03/23 D3 10 mcg (400 unit) chewable tablet cholecalciferol (vitamin D3) 25 25 mcg PO BEDTIME 10/08/22 06/03/23 mcg (1,000 unit) tablet rosuvastatin 40 mg tablet 40 mg PO DAILY 06/03/23 06/03/23 Previous Rx's Medication Instructions Recorded levothyroxine 50 mcg tablet 50 mcg PO QAM for disorder of 04/13/23 thyroid gland #30 tabs Allergies Allergy/AdvReac Type Severity Reaction Status Date / Time No Known Allergies Allergy Verified 06/17/23 14:30 Review of Systems Constitutional: Constitutional: Reports no additional constitutional complaints, Denies chills, Denies fever(s) and Denies night sweats Eyes: Eyes: Reports no additional eye complaints, Denies blurry vision, Denies change in vision, Denies diplopia, Denies eye discharge, Denies loss of vision and Denies eye pain ENT: Reports dizziness Cardiovascular: Cardiovascular: Reports no additional cardiovascular complaints, Denies chest pain, Denies lightheadedness, Denies Loss of Consciousness and Denies dyspnea Respiratory: Respiratory: Reports no additional respiratory complaints and Denies dyspnea Gastrointestinal: Gastrointestinal: Reports no additional gastrointestinal complaints, Denies abdominal pain, Denies melena, Denies hematochezia, Denies change in bowel habits, Denies change in stool character and Reports nausea Genitourinary: Genitourinary: Denies hematuria, Denies urinary frequency, Denies dysuria, Denies urinary incontinence, Denies urinary hesitancy and Denies urinary urgency Musculoskeletal: Musculoskeletal: Reports no additional musculoskeletal complaints, Denies numbness and Denies tingling Comments: left sided deficit - chronic for the patient Neurologic: Reports dizziness, Denies loss of vision, Denies numbness and Denies tingling Psychiatric: Psychiatric: Reports no additional psychiatric complaints Endocrine: Endocrine: Reports no additional endocrine complaints Hematologic/Lymphatic: Hematologic/Lymphatic: Reports no additional hematologic/lymphatic complaints Allergic/Immunologic: Allergic/Immunologic: Reports no additional allergic/immunologic complaints PMFSH Past Medical History Attestation statement: The following information was validated with the patient. (all information validated with the patient's mother) Source: old records reviewed, obtained from family (patient's mother provided additional history and confirmed the history provided by the patient) and nursing notes reviewed Medical History Diverticulosis Tubular adenoma of colon CVA (cerebral vascular accident) Hypothyroidism Surgical History H/O colonoscopy History of tubal ligation History of surgery Family History Family History Mother No known health problems Father No known health problems Social History Social History Alcohol intake: never Patient Tobacco Use Status: Former Tobacco user Smoked in Last 30 Days: No Use of substances other than those prescribed or required for medical reasons: No Advance Directives: No Advance Directives Information Provided: Yes Physical Exam ED Vital Signs: Vital Signs - 24 hr 06/23/23 08:46 06/23/23 08:49 06/23/23 10:39 Temperature 97.8 F 97.8 F 97.5 F Pulse Rate 70 71 63 Respiratory Rate 16 16 16 Blood Pressure 118/93 H 118/93 H 132/76 Pulse Oximetry 98 98 99 Oxygen Delivery Method Room Air Room Air Room Air BMI result Body Mass Index 24.8 Const General: cooperative, no acute distress, alert and awake Nutritional Appearance: well nourished Orientation/consciousness: patient oriented x3 Limitations: no limitations HENMT Head: Yes normal to inspection and Yes atraumatic Ears: hearing grossly normal bilaterally and external ears normal General nose exam: Normal external nose present, no nasal discharge noted and no epistaxis Face and sinus: Yes normal facial exam, No abrasion and No laceration Mouth: Normal oral and palatal mucosa present, no drooling and no muffled voice Eyes General: appearance normal, both eyes and all related structures Periorbital: periorbital findings normal Eyelids: Yes eyelids normal Conjunctivae: conjunctivae normal Pupils: Equal, round and reactive pupils present EOM: EOMs intact bilaterally Neck Neck: Yes normal visual inspection, Yes full ROM and Yes no lymphadenopathy Chest Chest palpation & inspection: normal inspection of the chest Resp Effort & Inspection: normal respiratory effort and able to speak in complete sentences GI Inspection: Yes normal to inspection Neuro Other: chronic left sided deficit General: patient oriented x3 and moves all extremities Cranial nerves: Yes Equal, round and reactive pupils present Cognition (Neuro): normal cognition Extrem General: Yes normal to inspection, Yes full ROM and Yes capillary refill normal Psych Appearance: grossly normal Mental Status: mental status grossly normal Affect: normal affect Attitude: cooperative Thought process: Normal thought process present Thought content: Normal thought content present Insight: Good insight present (Psych) Medications Administered Discontinued Medications Generic Name Dose Route Start Last Admin Trade Name Freq PRN Reason Stop Dose Admin Sodium Chloride 1,000 mls @ 999 mls/hr 06/23/23 09:30 06/23/23 09:27 Ns IV 06/23/23 10:30 999 mls/hr .Q1H1M YE Administration Medical Decision Making Medical Decision Making MDM Narrative: Patient is a 57 year old assigned female at with a history of CVA resulting in permanent left sided deficit, diverticulosis, and hypothyroidism, presenting to the emergency department today with dizziness and nausea. Patient's physical exam was unremarkable and consistent with the patient's baseline. Patient's blood work showed a slightly elevated TSH but was otherwise unremarkable. Patient's head CT showed no acute process but did show a cystic structure adjacent to the right styloid. I explained my physical exam findings as well as all test results to the patient and the patient's mother. I answered all questions asked by the patient and the patient's mother. Patient states that after some IV fluids her symptoms dramatically improved. I stressed the importance of the patient taking her medication as prescribed. I stressed the importance of the patient following up with her primary care provider. I stressed the importance of the patient returning to the emergency department immediately if her symptoms were to worsen or if she were to develop any dizziness, shortness of breath, difficulty breathing, chest pain, blurry vision, loss of vision, nausea, vomiting, abdominal pain, fever, chills, back pain, or any other complaints. Patient and the patient's mother verbalized agreement and understanding with this treatment plan and discharge. Differential Diagnosis Differential Diagnoses: The differential diagnosis associated with the presentation includes Dizziness Elevated TSH Dehydration Anxiety Admission/Observation Consideration of admission/observation: Escalation of care including admission/observation considered Patient would have been admitted to the hospital had her work up had any findings where hospital admission was appropriate and her clinical presentation warranted hospital admission. Lab Data [facility] Lab Attestation statement: I reviewed the patient's lab results. My interpretation of these results are in the [facility] Rationale portion of this note. 06/23/23 09:25 06/23/23 09:25 Labs: Lab Results 06/23/23 Range/Units 09:25 WBC 5.2 (4.8-10.8) X10*3/uL RBC 4.19 L (4.20-5.50) X10*6/uL Hgb 13.4 (12.0-16.0) g/dl Hct 39.9 (37.0-47.0) % MCV 95.2 (80.0-98.0) fL MCH 32.0 (27.0-33.0) pg MCHC 33.6 (31.0-35.0) g/dl RDW 12.8 (11.0-16.0) % Plt Count 244 (160-400) X10*3/uL MPV 8.6 L (9.4-12.3) fL Immature Gran % (Auto) 0.2 (0.0-0.4) % Neut % (Auto) 58.7 (45-73) % Lymph % (Auto) 30.6 (20-40) % [place] % (Auto) 8.7 (2-11) % Eos % (Auto) 1.2 (0-4) % Baso % (Auto) 0.6 (0-2) % Lymph # (Auto) 1.6 (1.2-4.9) X10*3/uL [place] # (Auto) 0.5 (0.1-1.2) X10*3/uL Eos # (Auto) 0.1 (0.0-0.4) X10*3/uL Baso # (Auto) 0.0 (0.0-0.2) X10*3/uL Abs Immat Gran (auto) 0.01 (0.00-0.03) X10*3/uL Absolute Neuts (auto) 3.1 (2.0-8.3) x10*3/uL Absolute Nucleated RBC 0.000 (0.0-0.012) X10*3/uL Nucleated RBC % (auto) 0.0 (0.0-0.2) /100WBC Sodium 143 (135-145) mmol/L Potassium 3.7 (3.3-5.1) mmol/L Chloride 110 H (96-108) mmol/L Carbon Dioxide 28 (22-29) mmol/L Anion Gap 9 L (12-20) BUN 12 (9-16) mg/dL Creatinine 0.87 (0.5-1.4) mg/dL Estim Creat Clear Calc 63.0 Estimated GFR > 60 Random Glucose 99 (60-115) mg/dL Calcium 10.4 H (8.4-10.2) mg/dL Total Bilirubin 0.3 (0.0-1.0) mg/dL AST 19 (5-31) U/L ALT 19 (0-31) U/L Alkaline Phosphatase 58 (39-117) U/L Total Protein 7.1 (6.5-8.0) g/dL Albumin 3.9 (3.5-5.0) g/dL TSH 4.79 H (0.32-4.0) uIU/mL Free T4 1.00 (0.71-1.85) ng/dL Urine Color Yellow Urine Appearance Clear Urine pH 7.0 (5.0-9.0) Ur Specific [place] 1.015 (1.005-1.025) Urine Protein Negative (Neg-Trace) mg/dL Urine Glucose (UA) Negative (Negative) mg/dL Urine Ketones Negative (Negative) mg/dL Urine Blood Negative (Negative) Urine Nitrite Negative (Negative) Ur Leukocyte Esterase Negative (Negative) Influenza Type A (PCR) NEGATIVE (Negative) Influenza Type B (PCR) NEGATIVE (Negative) RSV RNA Qual (PCR) NEGATIVE (Negative) SARS-CoV-2 RNA (RT-PCR) NEGATIVE (Negative) Independent Interpretation I performed an independent interpretation of an: CT Scan Interpretation: My interpretation is in agreement with the radiologist's impression of this imaging study. EXAMINATION: CT HEAD WITHOUT CONTRAST CLINICAL INFORMATION: Head pressure and unsteadiness. COMPARISON: Head CT from 10/13/2016. TECHNIQUE: Contiguous axial imaging was performed from the skull base to vertex without intravenous administration of contrast. This CT examination was performed using dose optimization techniques as appropriate, variously including the following: *Automated exposure control *Adjustment of mA and/or kV according to patient size (this includes techniques or standardized protocols for targeted exams where dose is matched to indication/reason for exam; i.e. extremities or head) *Use of iterative reconstruction technique DLP: 867 mGy-cm FINDINGS: Patient motion is observed on initial scan and therefore some of the images were repeated. There is an old surgical defect/samina hole of the right frontal calvarium. Also, there is postoperative deformity of the right petrous and mastoid temporal bone and adjacent occipital bone. A few old clustered calcific densities are present in the lateral aspect of the right cerebellar hemisphere. No intracranial hemorrhage, extra-axial surface collection, focal mass effect or midline shift. Chronic hypoattenuation from gliosis/encephalomalacia in the right frontal lobe. No evidence of an acute major vascular territory infarction. Mild parenchymal volume loss with commensurate prominence of ventricles and sulci; no hydrocephalus. No acute abnormalities within the posterior fossa. The cerebellar tonsils are normal position. The visualized paranasal sinuses are well aerated. There is chronic fatty atrophy of the right parotid gland. An old, mildly complicated cystic-appearing focus is seen around the styloid process at superomedial aspect of the right parotid. CT/CT head/brain wo IV con IMPRESSION: * No intracranial hemorrhage or other acute intracranial pathology compared to 10/13/2016. * Chronic encephalomalacia within the right frontal lobe. * There are chronic postoperative changes, and an old predominantly cystic-appearing focus is seen adjacent to the right styloid process superomedial to the right parotid gland. There are no new soft tissue abnormalities. Dictated By: Reinaldo Davis MD Signed By: Electronically signed by Reinaldo Davis MD 06/23/23 1113 Radiology Impression Discussion of test interpretation with radiology: I have reviewed the radiologist's reading. Independent Historian Clinical information obtained from an independent historian. History obtained from or confirmed by: Parent (patient's mother provided additional history and confirmed the history provided by the patient.) Discharge Plan Discharge Clinical Impression: Dizziness Patient Disposition: Home, Self-Care Instructions: Dizziness (ED) Additional Instructions: Discuss the cyst found on your CT scan with your primary care provider as well as your slightly elevated TSH. Follow up with your primary care provider. Return to the emergency department immediately if your symptoms worsen or if you develop any dizziness, shortness of breath, difficulty breathing, chest pain, blurry vision, loss of vision, nausea, vomiting, abdominal pain, fever, chills, back pain, or any other complaints. Prescriptions: No Action levothyroxine 50 mcg tablet 50 mcg PO QAM Qty: 30 4RF rosuvastatin 40 mg tablet 40 mg PO DAILY alendronate 70 mg tablet 70 mg PO QWEEK cholecalciferol (vitamin D3) 25 mcg (1,000 unit) tablet 25 mcg PO BEDTIME calcium carbonate-vitamin D3 500 mg-10 mcg (400 unit) tablet,chewable 1 tab PO BEDTIME Referrals: Lashawn Song MD [Primary Care Provider] - Print Language: Faroese
[2023-06-23] MEDS: 0.9 % Sodium Chloride 1,000 ML 999 ML IV (09:27)
[2023-06-23 09:32] LABS: MANUAL DIFF FLAG NO
[2023-06-23 09:34] LABS: Appearance Urine Clear; Basophils Percent Auto 0.6 % (0-2); Color Urine Yellow; Eosinophils Absolute Auto 0.1 X10*3/uL (0.0-0.4); Eosinophils Percent Auto 1.2 % (0-4); Glucose Urine UA Negative (Negative); Hematocrit 39.9 % (37.0-47.0); Hemoglobin 13.4 g/dl (12.0-16.0); Imm Gran Abs Auto 0.01 X10*3/uL (0.00-0.03); Imm Gran Pct Auto 0.2 % (0.0-0.4); Leukocyte Esterase Urine Negative (Negative); Lymphocytes Absolute Auto 1.6 X10*3/uL (1.2-4.9); Lymphocytes Percent Auto 30.6 % (20-40); Mean Corpuscular HGB Conc 33.6 g/dl (31.0-35.0); Mean Corpuscular Volume 95.2 fL (80.0-98.0); Mean Platelet Volume 8.6 fL (9.4-12.3); Monocytes Absolute Auto 0.5 X10*3/uL (0.1-1.2); Monocytes Percent Auto 8.7 % (2-11); Neutrophils Absolute Auto 3.1 x10*3/uL (2.0-8.3); Neutrophils Percent Auto 58.7 % (45-73); Nitrite Urine Negative (Negative); Platelet Count 244 X10*3/uL (160-400); Red Blood Count 4.19 X10*6/uL (4.20-5.50); Red Cell Distribution Width 12.8 % (11.0-16.0); Specific Gravity - Urine 1.015 (1.005-1.025); Urine Blood Negative (Negative); Urine Ketones Negative (Negative); Urine Protein Negative (Neg-Trace); White Blood Count 5.2 X10*3/uL (4.8-10.8)
[2023-06-23 09:54] LABS: Alanine Aminotransferase 19 U/L (0-31); Albumin Level 3.9 g/dL (3.5-5.0); Alkaline Phosphatase 58 U/L (39-117); Anion Gap 9 (12-20); Aspartate Amino Transferase 19 U/L (5-31); Bilirubin Total 0.3 mg/dL (0.0-1.0); Blood Urea Nitrogen 12 mg/dL (9-16); Calcium 10.4 mg/dL (8.4-10.2); Carbon Dioxide 28 mmol/L (22-29); Chloride 110 mmol/L (96-108); Estimated Glomerular Filt Rate > 60; Glucose Random 99 mg/dL (60-115); Potassium 3.7 mmol/L (3.3-5.1); Sodium 143 mmol/L (135-145); Total Protein 7.1 g/dL (6.5-8.0)
[2023-06-23 10:09] LABS: TSH reflex Free T4 4.79 uIU/mL (0.32-4.0)
[2023-06-23 10:16] LABS: Influenza A PCR NEGATIVE (Negative); Influenza B PCR NEGATIVE (Negative); Resp Syncy Virus RNA Qual PCR NEGATIVE (Negative); SARS COV2 PCR INHOUSE NEGATIVE (Negative)
[2023-06-23 10:39] VITALS: BP 132/76; PULSE 63; RESP 16; TEMP 36.4; O2SAT 99
[2023-06-23 12:16] VITALS: BP 148/84; PULSE 66; RESP 15; TEMP 36.7; O2SAT 99
[2023-06-23 12:25] VITALS: BP 143/80; PULSE 66; RESP 15; TEMP 36.7; O2SAT 99
== END 2023-06-23 12:26 | disposition home or self-care (01) ==
PROVIDERS: Physician Assistant Medical; Emergency Provider Emergency Medicine; PCP Internal Medicine
DX: R42 Dizziness and giddiness (principal); R11.2 Nausea with vomiting, unspecified; Z86.73 Personal history of transient ischemic attack (TIA), and cerebral infarction without residual deficits; Z87.891 Personal history of nicotine dependence; Z11.52 Encounter for screening for COVID-19; Z20.822 Contact with and (suspected) exposure to COVID-19
CPT/HCPCS: 0241U; 70450; 80053; 81003; 84439; 84443; 85025; 96360; 96361; 99284

== ENCOUNTER 2023-09-03 14:01 | Outpatient (REF) | payer OTHER, SELFPAY | END 2023-09-03 14:02 | disposition home or self-care (01) | LOC: HO.MAMMO 14:01 | PROVIDERS: PCP Internal Medicine; Visit Provider Internal Medicine | DX: Z12.31 Encounter for screening mammogram for malignant neoplasm of breast (principal) | CPT/HCPCS: 77063; 77067 ==

== ENCOUNTER → 2023-09-03 14:30 | Outpatient (BNV) | payer OTHER, SELFPAY | PROVIDERS: PCP Internal Medicine; Visit Provider Radiology Diagnostic Radiology | DX: Z12.31 Encounter for screening mammogram for malignant neoplasm of breast (principal) | CPT/HCPCS: 77063; 77067 ==

== ENCOUNTER 2024-06-14 07:25 | Emergency (ER) | payer MEDICARE, MEDICAID, SELFPAY ==
[2024-06-14 07:33] VITALS: BP 130/66; PULSE 85; O2SAT 99
[2024-06-14 08:09] VITALS: BP 120/74; PULSE 64; RESP 16; TEMP 36.4; O2SAT 98; BMI 24.0
--- NOTE | 2024-06-14 11:26 | ECG_ITS ---
Test Reason : dizzy Blood Pressure : */* mmHG Vent. Rate : 67 BPM Atrial Rate : 67 BPM P-R Int : 130 ms QRS Dur : 90 ms QT Int : 328 ms P-R-T Axes : 24 -7 32 degrees QTcB Int : 346 ms Normal sinus rhythm Moderate voltage criteria for LVH, may be normal variant ( R in aVL , Christopher product ) Nonspecific T wave abnormality Abnormal ECG When compared with ECG of 25-Jan-2017 13:51, No significant change was found Referred By: Yudith Arenas Electronically Signed By: MALIK KAUR MD
[2024-06-14 12:01] LABS: MANUAL DIFF FLAG NO
[2024-06-14 12:06] LABS: Basophils Percent Auto 0.4 % (0-2); Eosinophils Percent Auto 0.1 % (0-4); Hematocrit 43.8 % (37.0-47.0); Hemoglobin 14.5 g/dl (12.0-16.0); Imm Gran Abs Auto 0.02 X10*3/uL (0.00-0.03); Imm Gran Pct Auto 0.2 % (0.0-0.4); Lymphocytes Absolute Auto 1.7 X10*3/uL (1.2-4.9); Lymphocytes Percent Auto 20.4 % (20-40); Mean Corpuscular HGB Conc 33.1 g/dl (31.0-35.0); Mean Corpuscular Hemoglobin 31.9 pg (27.0-33.0); Mean Corpuscular Volume 96.3 fL (80.0-98.0); Mean Platelet Volume 9.1 fL (9.4-12.3); Monocytes Absolute Auto 0.5 X10*3/uL (0.1-1.2); Monocytes Percent Auto 5.7 % (2-11); Neutrophils Absolute Auto 6.2 x10*3/uL (2.0-8.3); Neutrophils Percent Auto 73.2 % (45-73); Platelet Count 283 X10*3/uL (160-400); Red Blood Count 4.55 X10*6/uL (4.20-5.50); Red Cell Distribution Width 12.7 % (11.0-16.0); White Blood Count 8.5 X10*3/uL (4.8-10.8)
[2024-06-14 12:39] LABS: Alanine Aminotransferase 29 U/L (0-31); Albumin Level 4.2 g/dL (3.5-5.0); Alkaline Phosphatase 82 U/L (39-117); Anion Gap 9 (12-20); Aspartate Amino Transferase 26 U/L (5-31); Bilirubin Total 0.3 mg/dL (0.0-1.0); Blood Urea Nitrogen 16 mg/dL (9-16); Calcium 11.4 mg/dL (8.4-10.2); Carbon Dioxide 28 mmol/L (22-29); Chloride 109 mmol/L (96-108); Creatinine Clr Calc Pharmacy 50.6; Estimated Glomerular Filt Rate > 60; Glucose Random 140 mg/dL (60-115); Magnesium 2.1 mg/dL (1.6-2.6); Potassium 3.7 mmol/L (3.3-5.1); Sodium 142 mmol/L (135-145); Total Protein 7.3 g/dL (6.5-8.0)
[2024-06-14 17:45] VITALS: BP 137/80; PULSE 70; RESP 14; TEMP 36.4; O2SAT 99
[2024-06-14 18:04] VITALS: BP 107/64; PULSE 82; RESP 17; TEMP 36.6; O2SAT 95
--- NOTE | 2024-06-14 18:35 | ED_ITS ---
HPI - Dizziness General Chief Complaint: Dizziness Stated Complaint: DIZZY X 3 DAYS,DIFF AMBULATING Time Seen by Provider: 06/14/24 18:34 Source: patient and EMS Mode of arrival: ambulatory Limitations: no limitations History of Present Illness ED Provider: Eduardo Espinosa DO HPI Narrative: 58-year-old female with past medical history of brain tumor in 1988 status post stroke with chronic left ankle brace as well as chronic tinnitus of the right ear and chronic deafness of the left ear presents to the ED from home due to sudden onset dizziness that she noticed upon standing up when getting out of bed at 06:35 this morning. Patient states she has had dizziness in the past. She denies any ear pain or discharge. She denies fevers, chills, sweats, cough, chest pain, difficulty breathing, urinary symptoms, abdominal pain, nausea, vomiting or diarrhea. She states the dizziness is specifically intermittent, described as room spinning and worse with standing up and ambulating and this improves rapidly after sitting at rest. She ambulates with a cane or a walker at baseline and reports that she was having significant difficulty walking after her symptoms developed today. She states his symptoms have improved throughout the day but still worsened when standing up to walk. Related Data Home Medications ?Medication ?Instructions ?Recorded ?Confirmed alendronate 70 mg tablet 70 mg PO QWEEK 10/08/22 06/03/23 calcium 500 mg (as carbonate)-vit 1 tab PO BEDTIME 10/08/22 06/03/23 D3 10 mcg (400 unit) chewable tablet cholecalciferol (vitamin D3) 25 25 mcg PO BEDTIME 10/08/22 06/03/23 mcg (1,000 unit) tablet rosuvastatin 40 mg tablet 40 mg PO DAILY 06/03/23 06/03/23 Previous Rx's ?Medication ?Instructions ?Recorded levothyroxine 50 mcg tablet 50 mcg PO QAM for disorder of 04/13/23 thyroid gland #30 tabs meclizine 25 mg tablet 25 mg PO BID PRN dizziness #10 tabs 06/14/24 Allergies Allergy/AdvReac Type Severity Reaction Status Date / Time No Known Allergies Allergy Verified 06/14/24 08:09 Review of Systems 2 Review of Systems: Yes all other systems are reviewed and are negative PMFSH Past Medical History Medical History Diverticulosis Tubular adenoma of colon CVA (cerebral vascular accident) Hypothyroidism Surgical History H/O colonoscopy History of tubal ligation History of surgery Family History Family History Mother No known health problems Father No known health problems Social History Social History Alcohol intake: never Patient Tobacco Use Status: Former Tobacco user Advance Directives: Yes Advance Directives Information Provided: Yes Advance Directives on File: No Do you have a plan to hurt others: No Plan Physical Exam 2 Vital Signs: Vital Signs: Last Vital Signs Temp 97.8 F 06/14/24 18:04 Pulse 59 06/14/24 18:43 Resp 16 06/14/24 18:43 BP 121/65 06/14/24 18:43 Pulse Ox 97 06/14/24 18:43 O2 Del Method Room Air 06/14/24 18:43 BMI result Body Mass Index 24.0 Constitutional: ?Alert, oriented, speaking in full sentences HEENT: ?Normocephalic, atraumatic. ?Moist mucous membranes, unremarkable TM bilaterally, no vesicles in the ear canal Eyes: ?PERRL, EOMI Neck: ?Supple, nontender Chest: ?No chest wall tenderness Respiratory: Lungs are clear, no increased work of breathing Cardio: ?Regular rate and rhythm, 2+ radial and DP pulses symmetrically GI: ?Soft, nondistended, nontender Back: ?Normal range of motion, nontender Skin: ?No rash, no lesions Neuro: ? Mental Status: Patient is alert, attentive, and fully oriented Speech: Clear and fluent CN II: Visual cheung are full, pupils are equal and briskly reactive to light CN III, IV, : Extra ocular motions are intact in all directions. No ptosis. CN V: Facial sensation intact, both upper and lower face CN VII: Symmetric facial movements CN VIII: Hearing is grossly normal (baseline deafness of the left ear, hearing aid in place) CN IX, X: Symmetric elevation of palate, normal phonation CN XI: Shoulder shrug 5/5 strength bilaterally CN XII: Tongue protrudes midline Motor: No pronator drift bilaterally. 5/5 strength all 4 extremities. Normal muscle bulk and tone. 2+ patellar reflexes symmetrically Sensory: Sensation intact all 4 extremities to light touch without reported paresthesias. Coordination: No dysmetria on finger to nose bilaterally. No truncal ataxia noted although the patient does report feeling somewhat unsteady on her feet. Extremities: ?No swelling or tenderness, full range of motion Psych: ?Calm, alert and cooperative, appropriate behavior Medications Administered Discontinued Medications Generic Name Dose Route Start Last Admin Trade Name Molly PRN Reason Stop Dose Admin Meclizine HCl 25 mg 06/14/24 19:33 06/14/24 19:41 Meclizine Hcl 25 Mg Tablet PO 06/14/24 19:34 25 mg ONCE ONE Administration Medical Decision Making Medical Decision Making [facility] Narrative: Patient presenting with intermittent dizziness. I do not suspect central cause. I was unable to diagnose BPPV per Juan-Hallpike but attempted Ochoa's maneuver and the patient reports some improvement in her symptoms. She has not had any recent illnesses and I do not suspect viral labyrinthitis. She has no signs of herpes zoster. She has no new symptoms suggesting Meniere's disease but this is possible given the chronic tinnitus. We will trial of meclizine in addition to the Epleys maneuver followed by ambulation trial with a walker to determine if she is safe for discharge to home with close follow up with her primary care provider. After meclizine, the patient ambulated at baseline, feels significantly improved and is stable for discharge to home. Prescription for meclizine provided as well as return precautions. Lab Data [facility] Lab Attestation statement: I reviewed the patient's lab results. Grossly unremarkable labs. 06/14/24 11:56 06/14/24 11:56 Labs: Lab Results 06/14/24 Range/Units 11:56 WBC 8.5 (4.8-10.8) X10*3/uL RBC 4.55 (4.20-5.50) X10*6/uL Hgb 14.5 (12.0-16.0) g/dl Hct 43.8 (37.0-47.0) % MCV 96.3 (80.0-98.0) fL MCH 31.9 (27.0-33.0) pg MCHC 33.1 (31.0-35.0) g/dl RDW 12.7 (11.0-16.0) % Plt Count 283 (160-400) X10*3/uL MPV 9.1 L (9.4-12.3) fL Immature Gran % (Auto) 0.2 (0.0-0.4) % Neut % (Auto) 73.2 H (45-73) % Lymph % (Auto) 20.4 (20-40) % [place] % (Auto) 5.7 (2-11) % Eos % (Auto) 0.1 (0-4) % Baso % (Auto) 0.4 (0-2) % Lymph # (Auto) 1.7 (1.2-4.9) X10*3/uL [place] # (Auto) 0.5 (0.1-1.2) X10*3/uL Eos # (Auto) 0.0 (0.0-0.4) X10*3/uL Baso # (Auto) 0.0 (0.0-0.2) X10*3/uL Abs Immat Gran (auto) 0.02 (0.00-0.03) X10*3/uL Absolute Neuts (auto) 6.2 (2.0-8.3) x10*3/uL Absolute Nucleated RBC 0.000 (0.0-0.012) X10*3/uL Nucleated RBC % (auto) 0.0 (0.0-0.2) /100WBC Sodium 142 (135-145) mmol/L Potassium 3.7 (3.3-5.1) mmol/L Chloride 109 H (96-108) mmol/L Carbon Dioxide 28 (22-29) mmol/L Anion Gap 9 L (12-20) BUN 16 (9-16) mg/dL Creatinine 0.93 (0.5-1.4) mg/dL Estim Creat Clear Calc 50.6 Estimated GFR > 60 Random Glucose 140 H (60-115) mg/dL Calcium 11.4 H D (8.4-10.2) mg/dL Magnesium 2.1 (1.6-2.6) mg/dL Total Bilirubin 0.3 (0.0-1.0) mg/dL AST 26 (5-31) U/L ALT 29 (0-31) U/L Alkaline Phosphatase 82 (39-117) U/L Total Protein 7.3 (6.5-8.0) g/dL Albumin 4.2 (3.5-5.0) g/dL Independent Interpretation I performed an independent interpretation of an: EKG Interpretation: Normal sinus rhythm at 67 beats per minute, unremarkable intervals, criteria met for LVH with borderline left axis deviation, no diagnostic ST or T-wave abnormalities, compared to prior dated 01/25/2017, there are no significant changes. Discharge Plan Discharge Clinical Impression: Vertigo Patient Disposition: Home, Self-Care Instructions: Vertigo (ED) Additional Instructions: You were seen in the Emergency Department (ED) and diagnosed with LIKELY benign paroxysmal positional vertigo in which there are tiny stones within the canals of your inner ear causing dizziness and nausea.??We are not positive that this is what you have but it is important that you follow up with your primary care provider for re-evaluation and continued management. We recommend that, at home you google Ochoa's maneuver and follow the instructions to repeat what we did for you in the ER (best done with a trained professional if possible). Also, avoid rapid changes in position and sit or lie down if you feel dizzy. Please return to the ED if you experience: - a new or severe headache - fever higher than 100.4?F (38?C) - trouble seeing clearly or double vision - trouble speaking or hearing - worsening dizziness to the point that you are unable to walk on your own - weakness in an arm or leg - face drooping to 1 side - any episodes of passing out - inability to stop vomiting OR any other concerning symptoms. You should also see your doctor or nurse if you have vertigo that lasts for several minutes or more and you: - are older than 60 - had a stroke in the past - are at risk for having a stroke, for example, because you have diabetes or you smoke If you have dizziness or vertigo that comes and goes but you do not have any of the problems listed above, you should still make an appointment with your doctor or nurse.? Prescriptions: New meclizine 25 mg tablet 25 mg PO BID PRN (Reason: dizziness) Qty: 10 0RF No Action levothyroxine 50 mcg tablet 50 mcg PO QAM Qty: 30 4RF rosuvastatin 40 mg tablet 40 mg PO DAILY alendronate 70 mg tablet 70 mg PO QWEEK cholecalciferol (vitamin D3) 25 mcg (1,000 unit) tablet 25 mcg PO BEDTIME calcium carbonate-vitamin D3 500 mg-10 mcg (400 unit) tablet,chewable 1 tab PO BEDTIME Print Language: Citizen [place]
[2024-06-14 18:43] VITALS: BP 121/65; PULSE 59; RESP 16; O2SAT 97
[2024-06-14] MEDS: Meclizine HCl 25 MG TABLET PO (19:41)
[2024-06-14 20:42] VITALS: BP 121/65; PULSE 59; RESP 16; TEMP 36.6; O2SAT 97
== END 2024-06-14 20:42 | disposition home or self-care (01) ==
PROVIDERS: Physician Assistant Medical; Emergency Provider Emergency Medicine; PCP Internal Medicine
DX: R42 Dizziness and giddiness (principal); R06.02 Shortness of breath; R26.2 Difficulty in walking, not elsewhere classified; R94.31 Abnormal electrocardiogram [ECG] [EKG]; Z87.891 Personal history of nicotine dependence; Z79.899 Other long term (current) drug therapy
CPT/HCPCS: 36415; 80053; 83735; 85025; 93005; 99283; 99284

== ENCOUNTER → 2024-06-14 11:26 | Outpatient (BNV) | payer MEDICARE, MEDICAID, SELFPAY | PROVIDERS: Emergency Provider Emergency Medicine; PCP Internal Medicine; Visit Provider Internal Medicine Cardiovascular Disease | DX: R94.31 Abnormal electrocardiogram [ECG] [EKG] (principal); R42 Dizziness and giddiness | CPT/HCPCS: 93010 ==

== ENCOUNTER 2025-02-04 15:44 | Outpatient (REF) | payer MEDICARE, MEDICAID, SELFPAY ==
[2025-02-04 18:14] LABS: MANUAL DIFF FLAG NO
[2025-02-04 18:38] LABS: Hematocrit 39.7 % (37.0-47.0); Hemoglobin 13.2 g/dl (12.0-16.0); Imm Gran Abs Auto 0.01 X10*3/uL (0.00-0.03); Imm Gran Pct Auto 0.2 % (0.0-0.4); Lymphocytes Absolute Auto 1.7 X10*3/uL (1.2-4.9); Mean Corpuscular HGB Conc 33.2 g/dl (31.0-35.0); Mean Corpuscular Hemoglobin 31.6 pg (27.0-33.0); Mean Corpuscular Volume 95.0 fL (80.0-98.0); NRBC Abs Auto 0.000 X10*3/uL (0.0-0.012); NRBC Pct Auto 0.0 /100WBC (0.0-0.2); Platelet Count 250 X10*3/uL (160-400); Red Blood Count 4.18 X10*6/uL (4.20-5.50); White Blood Count 6.1 X10*3/uL (4.8-10.8)
[2025-02-04 19:13] LABS: Alanine Aminotransferase 22 U/L (0-31); Albumin Level 4.3 g/dL (3.5-5.0); Alkaline Phosphatase 84 U/L (39-117); Anion Gap 9 (12-20); Aspartate Amino Transferase 32 U/L (5-31); Blood Urea Nitrogen 13 mg/dL (9-16); Calcium 14.3 mg/dL (8.4-10.2); Carbon Dioxide 30 mmol/L (22-29); Chloride 111 mmol/L (96-108); Cholesterol 154 mg/dL (<200); Estimated Glomerular Filt Rate 52; HDL Cholesterol 55 mg/dL (>40); Potassium 3.8 mmol/L (3.3-5.1); Sodium 146 mmol/L (135-145); Total Protein 7.3 g/dL (6.5-8.0); Triglycerides 132 mg/dL (<150)
[2025-02-04 19:45] LABS: Free T4 (Free Thyroxine) 0.90 ng/dL (0.71-1.85)
== END 2025-02-04 15:45 | disposition home or self-care (01) ==
LOC: HO.CHCLDS 15:44
PROVIDERS: Visit Provider Internal Medicine
DX: Z13.89 Encounter for screening for other disorder (principal)
CPT/HCPCS: 36415; 80053; 80061; 84439; 84443; 85025; 87086

== ENCOUNTER 2025-02-04 20:52 | Inpatient (IN) | payer MEDICARE, MEDICAID, SELFPAY ==
--- NOTE | ~2025-02-04 | XR_ITS ---
CLINICAL HISTORY: severe hypercalcemia 1 view chest x-ray Comparison: None provided Findings: No consolidation or effusion. Normal size heart. No acute fracture. IMPRESSION: 1. No acute findings. This document has been electronically signed by: Jessica Prasad MD on 02/05/2025 00:50:30
--- NOTE | ~2025-02-04 | NM_ITS ---
EXAMINATION: Nuclear medicine parathyroid SPECT study. CLINICAL INDICATION: Primary hyperparathyroidism and hypercalcemia. COMPARISON: Chest x-ray 02/05/2025. Ultrasound exam for 08/10/2022 TECHNIQUE: Following intravenous administration of 30 mCi of 99m technetium sestamibi, immediate 20 minute planar and 2 hours delayed planar images with SPECT and CT were obtained from neck to mid chest. FINDINGS: On immediate 20 minute planar imaging there is normal activity seen in both thyroid lobes without any focal hot spots. On 2 hour delayed planar images there is some residual activity seen in the thyroid gland. No focal hot spot seen in the neck or the upper chest area. There is a focal cold nodule seen in left mid thyroid lobe on axial color fusion images in this corresponds to a nodule visualized in the left mid pole and previous ultrasound exam 06/26/2022. On CT SPECT study there is an atrophic right parotid gland. The left parotid gland appears unremarkable. Bilateral submandibular glands are symmetrical. The airways widely patent. No abnormal neck mass or abnormal sized lymphadenopathy seen. Central tracheal and bronchial airways widely patent. The thyroid lobes are symmetrical and normal. Inferior to left thyroid lobe is a hypodense lobulated area on axial image 55/3 measuring 8 Hounsfield units likely cyst measuring 2 cm wide by 9 mm in AP dimension. The lung apices are clear. There is mild groundglass density seen in both upper lobes, nonspecific. NM/NM parathyroid SPECT w CT IMPRESSION: Sestamibi parathyroid scan is normal. However there is a cystic structure inferior and posterior left thyroid lobe question a lobulated lymph node or cyst not active on the scan. Recommended dedicated CT neck with contrast Focal cold defect in the mid left thyroid lobe on color fusion images likely cold nodule seen on previous ultrasound exam 06/26/2022 Electronically signed by: Rashad Lainez MD 02/08/2025 10:01 AM [facility]
--- OUTSIDE RECORDS SUMMARY | 2025-02-04 14:30 | XMS_ITS | Encounter Summary ---
Author Organization [facility] Address [address] [place] [address] Care Team Providers Care Agronomy Teacher Name Role Phone Lashawn Song MD Primary Care Provider [phone] Reason for Referral * Imaging (Routine) - Pending Review Specialty Diagnoses / Procedures Referred By Maria Isabel caro Referred To Contact Radiology Diagnoses Encounter for screening mammogram for malignant neoplasm of breast Procedures BI Mammogram Screening Tomosynthesis Bilateral Lashawn Song MD [address] [place] [address] Phone: tel: fax: Referral ID Status Reason Start Date Expiration Date V isits Requested Visits Authorized [id number] Pending Review 02/04/2025 02/04/2026 1 1 * Imaging (Routine) - Authorized Specialty Diagnoses / Procedures Referred By Maria Isabel caro Referred To Contact Radiology Diagnoses Acute nonintractable headache, unspecified headache type Procedures CT Head w/o Contrast Lashawn Song MD [address] [place] [address] Phone: tel: fax: [address] Phone: tel: fax: Referral ID Status Reason Start Date Expiration Date V isits Requested Visits Authorized [id number] Authorized 02/04/2025 02/04/2026 1 1 Reason for Visit * Reason Comments Headache Encounter Details Date Type Department Care Team (Latest Contact Info) Description 02/04/2025 2:30 PM EST Office Visit [facility] [address] [place] [address] Lashwan Song MD [address] [place] [address] Acquired hypothyroidism (Primary Dx); Hypercholesterolemia; Elevated BP reading w/ no diagnosis of HTN; Acute nonintractable headache, unspecified headache type; Urine frequency; Dizziness; Encounter for screening mammogram for malignant neoplasm of breast Social History Tobacco Use Types Packs/Day Years Used Date Smoking Tobacco: Never Smokeless Tobacco: Never Depression Answer Date Recorded Patient Health Questionnaire-9 Score 2 06/24/2023 Patient Health Questionnaire-9 Score 2 06/24/2023 Last PHQ-9: Questionnaire Data Not on file 0 06/24/2023 Housing Stability Answer Date Recorded What is your housing situation today? I have stevan beckham 09/07/[address] you li ve. Do you have problems with any of the following? None of the above 09/07/2024 Food Insecurity Answer Date Recorded Within the past 12 months, y ou worried that your food would run out before you got money to buy more: Never True 09/07/2024 Within the past 12 months,th e food you bought just didn't last and you didn't have enough money to get more: Never True Transportation Answer Date Recorded In the past 12 months, has l ack of transportation kept you from medical appts, meetings, work or from getting things needed for daily living? No 09/07/2024 Utilities Answer Date Recorded In the past 12 months, has t he electric, gas, oil or water company threatened to shut off services in your home? No 09/07/2024 Depression Answer Date Recorded Patient Health Questionnaire-2 Score 0 06/24/2023 Internet Access Answer Date Recorded Internet Access Q1 Yes 09/07/2024 Internet Access Q2 Not on file 09/07/2024 Comments Unknown Sex and Gender Information Value Date Recorded Sex Assigned at Female 01/21/2022 10:16 AM EDT Legal Sex Female 10:16 AM EDT Gender Identity Female 01/21/2022 10:16 AM EDT Sexual Orientation Choose not to disclose 2022 1:46 PM EDT documented as of this encounter Last Filed Vital Signs Vital Sign Reading Time Taken Comments Blood Pressure 143/83 02/04/2025 2:50 PM EST Pulse 70 02/04/2025 2:50 PM EST Temperature - - Respiratory Rate 20 02/04/2025 2:50 PM EST Oxygen Saturation 97% 02/04/2025 2:50 PM EST Inhaled Oxygen Concentration - - Weight 52.2 kg (115 lb) 02/04/2025 2:50 PM EST Height 149.9 cm (4' 11 ) 02/04/2025 2:50 PM EST Body Mass Index 23.23 02/04/2025 2:50 PM EST documented in this encounter Progress Notes * Lashawn Song MD - 02/04/2025 2:30 PM EST SUBJECTIVE Ana Nova is a 59 y.o. female who presents for Headache. Note from triage reviewed: Return call placed to the pt daughter Kayla (has permission to speak on the pt behalf) in regard to pt ongoing headaches. Per Kayla, the pt has been having more acute painful migraines rated at a 8/10 for pain. The migraines tend to happen in the morning and are not brought on by any aggravatingfactor. The pt does not have any N/T, confusion or N/V. The pt has also started experiencing dizzy spells for the past week. The pt is diagnosed with vertigo and has been prescribed Meclizine which the pt has taken to alleviate symptoms. Kayla was looking to follow up with PCP for possible medication management to help with migraines as everything tried OTC including Excedrin has not helped. Kayla was agreeable to scheduling the pt with PCP on Friday02/04/2025 for further evaluation in office. Kayla advised that if the pt symptoms worsen before appointment on Friday to call back the office or present to the [facility]. Headache Pertinent negatives include no back pain or coughing. History obtained from pt: - History of migraine and dizziness, occurring two to three times per week, onset one week prior tovisit - Migraines relieved by Tylenol, rest in dark room, and topical application to forehead - Visual symptoms described as seeing colorful balls during episodes - Reports history of brain tumor diagnosed at age 22, treated surgically with two-hour procedure - Reports chronic sinus headaches - Reports weight loss and poor appetite - Reports increased urinary frequency and occasional incontinence for more than six months, associated with high fluid intake and cranberry juice consumption - Denies dysuria and pruritus - Coffee intake previously increased urinary frequency and faintness, stopped coffee intake about one week prior to visit - History of swollen thyroid gland, reports swallowing water and food without difficulty - Reports feeling depressed - History of high blood pressure - Reports need for breast imaging (mammogram) - Reports history of high calcium Problem List[1] Allergies[2] Medications Ordered Prior to Encounter[3] Review of Systems Constitutional: Positive for unexpected weight change. Negative for appetite change, chills and diaphoresis. Respiratory: Negative for cough, choking and shortness of breath. Cardiovascular: Negative for leg swelling. Gastrointestinal: Negative for anal bleeding and blood in stool. Musculoskeletal: Negative for back pain and gait problem. Neurological: Positive for headaches. OBJECTIVE Vitals: 02/04/25 1450 BP: (!) 143/83 BP Location: Left arm Patient Position: Sitting BP Cuff Size: Adult Pulse: 70 Resp: 20 SpO2: 97% Weight: 115 lb (52.2 kg) Height: 4' 11 (1.499 m) Physical Exam Constitutional: General: She is not in acute distress. Appearance: Normal appearance. She is not ill-appearing, toxic-appearing or diaphoretic. Cardiovascular: Rate and Rhythm: Normal rate. Pulmonary: Effort: Pulmonary effort is normal. Neurological: General: No focal deficit present. Mental Status: She is alert. Psychiatric: Mood and Affect: Mood normal. Assessment/Plan Assessment/Plan Diagnoses and all orders for this visit: Acquired hypothyroidism - CBC auto differential; Future - Comprehensive Metabolic Panel; Future - Lipid Panel, Standard; Future - TSH with Reflex to Free T4; Future Hypercholesterolemia - CBC auto differential; Future - Comprehensive Metabolic Panel; Future - Lipid Panel, Standard; Future - TSH with Reflex to Free T4; Future Elevated BP reading w/ no diagnosis of HTN - CBC auto differential; Future - Comprehensive Metabolic Panel; Future - Lipid Panel, Standard; Future - TSH with Reflex to Free T4; Future Acute nonintractable headache, unspecified headache type - CT Head w/o Contrast; Future - topiramate (Topamax) 25 MG tablet; Take 1 tablet (25 mg) by mouth every 12 (twelve) hours. Urine frequency - Culture, Urine, Routine; Future Dizziness - meclizine (Antivert) 25 MG tablet; Take 1 tablet (25 mg) by mouth if needed in the morning, at noon, and at bedtime for dizziness for up to 10 days. Acquired hypothyroidism: - Thyromegaly noted. Possible Iatrogenic hyperthyroidism contributing to weight loss. Thyroid medication dose may require adjustment. - Ordered thyroid function blood tests prior to departure. Will monitor thyroid medication dose every 6 weeks to 3 months. Elevated BP reading w/ no diagnosis of HTN: - Elevated blood pressure noted. - Monitor blood pressure. Assess for possible medication adjustment after review of blood and urinalysis. Acute nonintractable headache, unspecified headache type: - Headaches attributed to migraine. No evidence of acute intracranial pathology on CT scan from June 2023. Chronic encephalomalacia within right frontal lobe consistent with prior surgical intervention. - Prescribed Topamax to be taken twice daily for migraine prophylaxis. Advised Tylenol as needed for headache, not to exceed three times per week to avoid rebound headache. Refilled meclizine prescription. Will repeat CT scan of the brain. Urine frequency: - Increased urinary frequency reported. No dysuria or pruritus. Possible polyuria due to high fluidintake. - Ordered urinalysis to evaluate for diabetes and other causes. Will prescribe pads if urinalysis is normal. Will call with results. Dizziness: - Dizziness associated with migraine and possibly related to fluid intake. - Refilled meclizine prescription. Depression: - Depressive symptoms reported. - Offered referral to therapist. Patient currently receiving support from PT. Mammogram follow-up: - Mammogram requested. - Will review and arrange mammogram as indicated. [1] Patient Active Problem List Diagnosis Acquired hypothyroidism Congenital deafness Gastroesophageal reflux disease Hypercholesterolemia Thyroid nodule Hemiparesis (CMS/HCC) (HCC) Left foot drop Schwannoma Encephalomalacia Anxiety [2] No Known Allergies [3] Current Outpatient Medications on File Prior to Visit Medication Sig Dispense Refill alendronate (Fosamax) 70 MG tablet TAKE ONE TABLET ONCE WEEKLY FRIDAY MORNING 4 tablet 5 Calcium Carb-Cholecalciferol 500-10 MG-MCG chewable tablet CHEW ONE TABLET EVERY NIGHT AT BEDTIME (BONES) 90 tablet 1 cholecalciferol (Vitamin D-3) 25 MCG tablet TAKE ONE TABLET EVERY NIGHT AT BEDTIME 60 tablet 11 cholecalciferol (Vitamin D-3) 25 MCG tablet Take 1 tablet (25 mcg) by mouth Once per day. 60 [id number] Diclofenac Sodium 1 % gel To apply to the affected area 4 times a day 100 g 0 levothyroxine (Synthroid, Levoxyl) 88 MCG tablet TAKE ONE TABLET EVERY MORNING (thyroid) 30 tablet 11 rosuvastatin (Crestor) 40 MG tablet TAKE ONE TABLET EVERY NIGHT AT BEDTIME (CHOLESTEROL) 30 tablet 11 No current facility-administered medications on file prior to visit. documented in this encounter Plan of Treatment Scheduled Orders Name Type Priority Associated Diagnoses Orde r Schedule CT Head w/o Contrast Imaging Routine Acute nonintractable headache, unspecified headache type Expected: 02/04/2025, Expires: 02/04/2026 Culture, Urine, Routine Microbiology Routine Urine frequency Expected: 02/04/2025 (Approximate), Expires: 02/04/2026 BI Mammogram Screening Tomosynthesis Bilateral Imaging Routine Encounter for screening mammogram for malignant neoplasm of breast Expected: 02/04/2025, Expires: 04/06/2026 documented as of this encounter Procedures Procedure Name Priority Date/Time Associated Diagnosis Comments CBC WITH AUTO DIFFERENTIAL Routine 02/04/2025 3:47 PM EST Acquired hypothyroidism Hypercholesterolem ia Elevated BP reading w/ no diagnosis of HTN TSH W/REFLEX TO FT4 Routine 02/04/2025 3 :17 PM EST Acquired hypothyroidism Hypercholesterolem ia Elevated BP reading w/ no diagnosis of HTN LIPID PANEL, STANDARD Routine 02/04/2025 3:17 PM EST Acquired hypothyroidism Hypercholesterolem ia Elevated BP reading w/ no diagnosis of HTN COMPREHENSIVE METABOLIC PANEL Routine 02/04/2025 3:17 PM EST Acquired hypothyroidism Hypercholesterolem ia Elevated BP reading w/ no diagnosis of HTN documented in this encounter Results * (ABNORMAL) CBC auto differential (02/04/2025 3:47 PM EST) White Blood Count 6.1 4.8 - 10.8 X10*3/uL [facility] Red Blood Count 4.18(L) 4.20 - 5.50 X10*6/uL [facility] Hemoglobin 13.2 12.0 - 16.0 g/dl [facility] Hematocrit 39.7 37.0 - 47.0 % [facility] Mean Corpuscular Volume 95.0 80.0 - 98.0 fL [facility] Mean Corpuscular Hemoglobin 31.6 27.0 - 33.0 pg [facility] Mean Corpuscular HGB Conc 33.2 31.0 - 35.0 g/dl [facility] Red Cell Distribution Width 12.5 11.0 - 16.0 % [facility] Platelet Count 250 160 - 400 X10*3/uL [facility] Mean Platelet Volume 9.6 9.4 - 12.3 fL [facility] Neutrophils Percent Auto 62.9 45 - 73 % [facility] Imm Gran Pct Auto 0.2 0.0 - 0.4 % [facility] Lymphocytes Percent Auto 27.4 20 - 40 % [facility] Monocytes Percent Auto 8.2 2 - 11 % [facility] Eosinophils Percent Auto 0.8 0 - 4 % [facility] Basophils Percent Auto 0.5 0 - 2 % [facility] NRBC Pct Auto 0.0 0.0 - 0.2 /100WBC [facility] Neutrophils Absolute Auto 3.9 2.0 - 8.3 x10*3/uL [facility] Imm Gran Abs Auto 0.01 0.00 - 0.03 X10*3/uL [facility] Lymphocytes Absolute Auto 1.7 1.2 - 4.9 X10*3/uL [facility] Monocytes Absolute Auto 0.5 0.1 - 1.2 X10*3/uL [facility] Eosinophils Absolute Auto 0.1 0.0 - 0.4 X10*3/uL [facility] Basophils Absolute Auto 0.0 0.0 - 0.2 X10*3/uL [facility] NRBC Abs Auto 0.000 0.0 - 0.012 X10*3/uL [facility] Blood Venous blood specimen / Unknown 02/04/2025 3:47 PM EST 02/04/2025 6:06 PM EST us Lashawn Song MD LAB BLOOD ORDERABLES Final Result Performing Organization Address City/[facility] [address]/ZIP Co de Phone Number [facility] [address] [place] [phone] * (ABNORMAL) TSH with Reflex to Free T4 (02/04/2025 3:17 PM EST) TSH reflex Free T4 5.78(H) 0.32 - 4.0 uIU/mL [facility] Blood Venous blood specimen / Unknown 02/04/2025 3:17 PM EST 02/04/2025 6:06 PM EST us Lashawn Song MD LAB BLOOD ORDERABLES Final Result Performing Organization Address City/[facility] [address]/ZIP Co de Phone Number [facility] [address] [place] [phone] * Lipid Panel, Standard (02/04/2025 3:17 PM EST) Triglycerides 132 <150 mg/dL [facility] Comment:Desirable Triglyceri de: less than 150 mg/dLBorderline High Triglyceride 150-199 mg/dLHigh Triglyceride: 200-499 mg/dLVery High Triglyceride: greater than or equal to 5OO mg/dL Cholesterol 154 <200 mg/dL [facility] Comment:Desirable Cholestero l: less than 200 mg/dLBorderline High Cholesterol: 200-239 mg/dLHigh Cholesterol: greater than 239 mg/dL LDL Cholesterol Calculated 73 <100 mg/dL [facility] Comment:Desirable LDL: less than 100 mg/dLNear Optimal/Above Optimal LDL: 110- 129 mg/dLBorderline High LDL: 130-159 mg/dLHigh LDL: 160-189 mg/dLVery High LDL: greater than or equal to 190 mg/dL HDL Cholesterol 55 >40 mg/dL [facility] Comment:Desirable HDL: great er than 40 mg/dL Note: This HDL assay may give artificially low results in patients with liver disease. Blood Venous blood specimen / Unknown 02/04/2025 3:17 PM EST 02/04/2025 6:06 PM EST us Lashawn Song MD LAB BLOOD ORDERABLES Final Result [facility] [address] [place] [address], [place] [phone] * (ABNORMAL) Comprehensive Metabolic Panel (02/04/2025 3:17 PM EST) Sodium 146(H) 135 - 145 mmol/L [facility] Potassium 3.8 3.3 - 5.1 mmol/L [facility] Chloride 111(H) 96 - 108 mmol/L [facility] Carbon Dioxide 30(H) 22 - 29 mmol/L [facility] Anion Gap 9(L) 12 - 20 [facility] Urea Nitrogen (BUN) 13 9 - 16 mg/dL [facility] Creatinine, Serum 1.09 0.5 - 1.4 mg/dL [facility] Estimated Glomerular Filt Rate 52 [facility] Comment:Chronic Kidney Disea se: Estimated GFR < 60 mL/min/[id number] Kidney Disease: Estimated GFR < 15 mL/min/1.73m2 Glucose 82 60 - 115 mg/dL [facility] Calcium 14.3(HH) 8.4 - 10.2 mg/dL [facility] Comment:Critical value for t est(s): CALS Results called to and readback by: Mary Espitia Person calling: [id number] Date: 02/04/25Time:1912 Bilirubin, Total 0.3 0.0 - 1.0 mg/dL [facility] Aspartate Amino Transferase 32(H) 5 - 31 U/L [facility] Alanine Aminotransferase 22 0 - 31 U/L [facility] Total Protein 7.3 6.5 - 8.0 g/dL [facility] Albumin Level 4.3 3.5 - 5.0 g/dL [facility] Alkaline Phosphatase 84 39 - 117 U/L [facility] Blood Venous blood specimen / Unknown 02/04/2025 3:17 PM EST 02/04/2025 6:06 PM EST Lashawn Song MD LAB BLOOD ORDERABLES Final Result [facility] [address] [place] [phone] documented in this encounter Visit Diagnoses Diagnosis Acquired hypothyroidism- Primary Unspecified hypothyroidism Hypercholesterolemia Pure hypercholesterolemia Elevated BP reading w/ no diagnosis of HTN Acute nonintractable headache, unspecified headache type Urine frequency Dizziness Dizziness and giddiness Encounter for screening mammogram for malignant neoplasm of breast documented in this encounter Additional Health Concerns Assessment Noted Time PHQ-9 Depression Total Score: 2 06/24/19 24 1:52 PM EDT documented as of this encounter Care Teams Agronomy Teacher Relationship Specialty Start Date End Date Lashawn Song MD [address] [place] [phone] PCP - General Internal Medicine 03/31/13 documented as of this encounter
[2025-02-04 21:33] VITALS: BP 156/85; PULSE 84; RESP 20; TEMP 36.4; O2SAT 95; BMI 23.1
[2025-02-04 21:53] LABS: MANUAL DIFF FLAG NO
[2025-02-04 21:57] LABS: Hematocrit 41.1 % (37.0-47.0); Hemoglobin 13.8 g/dl (12.0-16.0); Imm Gran Abs Auto 0.01 X10*3/uL (0.00-0.03); Imm Gran Pct Auto 0.1 % (0.0-0.4); Lymphocytes Absolute Auto 2.1 X10*3/uL (1.2-4.9); Mean Corpuscular HGB Conc 33.6 g/dl (31.0-35.0); Mean Corpuscular Hemoglobin 31.7 pg (27.0-33.0); Mean Corpuscular Volume 94.5 fL (80.0-98.0); NRBC Abs Auto 0.000 X10*3/uL (0.0-0.012); NRBC Pct Auto 0.0 /100WBC (0.0-0.2); Platelet Count 266 X10*3/uL (160-400); Red Blood Count 4.35 X10*6/uL (4.20-5.50); White Blood Count 6.9 X10*3/uL (4.8-10.8)
[2025-02-04 22:12] LABS: Alanine Aminotransferase 25 U/L (0-31); Albumin Level 4.5 g/dL (3.5-5.0); Alkaline Phosphatase 92 U/L (39-117); Anion Gap 10 (12-20); Aspartate Amino Transferase 25 U/L (5-31); Blood Urea Nitrogen 13 mg/dL (9-16); Calcium 14.5 mg/dL (8.4-10.2); Carbon Dioxide 26 mmol/L (22-29); Chloride 112 mmol/L (96-108); Creatinine Clr Calc Pharmacy 31.3; Estimated Glomerular Filt Rate 40; Potassium 5.4 mmol/L (3.3-5.1); Sodium 143 mmol/L (135-145); Total Protein 7.6 g/dL (6.5-8.0)
--- NOTE | 2025-02-04 22:14 | ECG_ITS ---
Test Reason : ABDOMINAL PAIN Blood Pressure : */* mmHG Vent. Rate : 71 BPM Atrial Rate : 71 BPM P-R Int : 158 ms QRS Dur : 84 ms QT Int : 326 ms P-R-T Axes : 40 -5 42 degrees QTcB Int : 354 ms Normal sinus rhythm Minimal voltage criteria for LVH, may be normal variant ( R in aVL ) Borderline ECG When compared with ECG of 14-Jun-2024 11:50, No significant change was found Referred By: Enrrique Rudolph Electronically Signed By: MALIK KAUR MD
[2025-02-04 22:28] LABS: Magnesium 2.3 mg/dL (1.6-2.6)
[2025-02-04 23:16] LABS: Parathyroid Hormone Intact 516.5 pg/mL (8.7-77.1)
--- NOTE | 2025-02-04 23:41 | ED_ITS ---
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 The patient was complaining of dizziness and increased urination with increased thirst for the last week pain She went to urgent care and had routine labs ordered today pain These were significant for a calcium level of over 14 and she was sent to the ER for evaluation. The patient does take alendronate has a any pain. She denies any fevers or chills. Related Data Home Medications ?Medication ?Instructions ?Recorded ?Confirmed alendronate 70 mg tablet 70 mg PO QWEEK 10/08/2205/22 calcium 500 mg (as carbonate)-vit 1 tab PO BEDTIME 06/03/23 D3 10 mcg (400 unit) chewable tablet cholecalciferol (vitamin D3) 25 25 mcg PO BEDTIME 09/2106/03/23 mcg (1,000 unit) tablet rosuvastatin 40 mg tablet 40 mg PO DAILY 06/03/2305/22 Previous Rx's ?Medication ?Instructions ?Recorded levothyroxine 50 mcg tablet 50 mcg PO QAM for disorder of 04/13/23 thyroid gland #30 tabs meclizine 25 mg tablet 25 mg PO BID PRN dizziness # 10 tabs 06/14/24 Allergies Allergy/AdvReac Type Severity Reaction Status Date / Time No Known Allergies Allergy Verified 02/04/25 21:40 Review of Systems 2 Constitutional: Constitutional: Denies body ache(s), Denies chills, Denies fever(s), Denies malaise and Reports weakness Eyes: Eyes: Denies blurry vision ENT: Denies vertigo and Denies dizziness Cardiovascular: Cardiovascular: Denies chest pain and Denies dyspnea on exertion Respiratory: Respiratory: Denies cough and Denies dyspnea on exertion Gastrointestinal: Gastrointestinal: Denies abdominal pain, Denies nausea and Denies vomiting Genitourinary: Genitourinary: Denies difficulty voiding and Denies dysuria Comments: Reports increased urination Musculoskeletal: Musculoskeletal: Denies back pain Neurologic: Denies vertigo, Denies dizziness and Reports weakness PMFSH Past Medical History Medical History Diverticulosis Tubular adenoma of colon CVA (cerebral vascular accident) Hypothyroidism Surgical History H/O colonoscopy History of tubal ligation History of surgery Family History Family History Mother No known health problems Father No known health problems Social History Social History Alcohol intake: never Patient Tobacco Use Status: Former Tobacco user Advance Directives: No Advance Directives Information Provided: No Patient : No Physical Exam ED Vital Signs: Vital Signs - 24 hr 02/04/25 21:33 Temperature 97.5 F Pulse Rate 84 Respiratory Rate 20 Blood Pressure 156/85 H Pulse Oximetry 95 Oxygen Delivery Method Room Air BMI result Body Mass Index 23.1 Const General: healthy appearing, comfortable, no acute distress, alert and awake Nutritional Appearance: well nourished Orientation/consciousness: patient oriented x3 HENMT Head: Yes normocephalic and Yes atraumatic Eyes Eyelids: Yes eyelids normal Conjunctivae: conjunctivae normal Sclerae: sclerae normal Corneas: corneas normal Pupils: Equal, round and reactive pupils present EOM: EOMs intact bilaterally Neck Neck: Yes full ROM Resp Effort & Inspection: normal respiratory effort, able to speak in complete sentences and not labored Cardio Rate: regular rate Rhythm: regular rhythm GI Inspection: No distended Palpation (GI): Soft to palpation, not firm, nontender, no guarding and not rigid Skin General skin exam: elasticity normal Neuro General: patient oriented x3 Cranial nerves: Yes CN's II-XII intact bilaterally, Yes Equal, round and reactive pupils present and Yes Bilaterally intact EOM present Cognition (Neuro): normal cognition Medications Administered Generic Name Dose Route Start Last Admin Trade Name Freq PRN Reason Stop Dose Admin Sodium Chloride 1,000 mls @ 999 mls/hr 02/04/25 22:15 02/04/25 22:17 Ns IV 02/05/25 00:15 999 mls/hr .Q1H1M YE Administration Medical Decision Making Medical Decision Making [facility] Narrative: 9-year-old female presents for evaluation of hypercalcemia with weakness and increased urination. I repeated the labs in her random calcium is elevated to 14.5, I added on a PTH and ionized calcium levels. We will treat with IV hydration of 2 liters normal saline. I ordered from injured 8. Awaiting the pharmacy to be able to administer this. The patient's EKG is nonischemic. I ordered additional electrolytes including magnesium, phosphorus. The patient's phosphorus is quite low at 1.1. The patient's potassium was slightly elevated to 5.4 which will be treated with IV fluids. Given there were no EKG changes we will hold off on insulin, calcium gluconate. Differential Diagnosis Differential Diagnoses: The differential diagnosis associated with the presentation includes Hypercalcemia Dehydration Primary hyperparathyroidism Osteopenia Lab Data [facility] Lab Attestation statement: I reviewed the patient's lab results. No leukocytosis or anemia. Normal platelet count. Normal sodium, slightly elevated potassium possibly due to dehydration, slightly elevated chloride likely the same reason. Renal function within normal limits. Calcium elevated as discussed above 02/04/25 21:48 02/04/25 21:48 Labs: Lab Results 02/04/25 02/04/25 Range/Units 21:48 22:51 WBC 6.9 (4.8-10.8) X10*3/uL RBC 4.35 (4.20-5.50) X10*6/uL Hgb 13.8 (12.0-16.0) g/dl Hct 41.1 (37.0-47.0) % MCV 94.5 (80.0-98.0) fL MCH 31.7 (27.0-33.0) pg MCHC 33.6 (31.0-35.0) g/dl RDW 12.5 (11.0-16.0) % Plt Count 266 (160-400) X10*3/uL MPV 9.1 L (9.4-12.3) fL Immature Gran % (Auto) 0.1 (0.0-0.4) % Neut % (Auto) 58.8 (45-73) % Lymph % (Auto) 29.6 (20-40) % Finney % (Auto) 10.0 (2-11) % Eos % (Auto) 1.2 (0-4) % Baso % (Auto) 0.3 (0-2) % Lymph # (Auto) 2.1 (1.2-4.9) X10*3/uL Finney # (Auto) 0.7 (0.1-1.2) X10*3/uL Eos # (Auto) 0.1 (0.0-0.4) X10*3/uL Baso # (Auto) 0.0 (0.0-0.2) X10*3/uL Abs Immat Gran (auto) 0.01 (0.00-0.03) X10*3/uL Absolute Neuts (auto) 4.1 (2.0-8.3) x10*3/uL Absolute Nucleated RBC 0.000 (0.0-0.012) X10*3/uL Nucleated RBC % (auto) 0.0 (0.0-0.2) /100WBC Sodium 143 (135-145) mmol/L Potassium 5.4 H D (3.3-5.1) mmol/L Chloride 112 H (96-108) mmol/L Carbon Dioxide 26 (22-29) mmol/L Anion Gap 10 L (12-20) BUN 13 (9-16) mg/dL Creatinine 1.35 (0.5-1.4) mg/dL Estim Creat Clear Calc 31.3 Estimated GFR 40 Random Glucose 128 H (60-115) mg/dL Calcium 14.5 H* (8.4-10.2) mg/dL Phosphorus 1.1 L (2.7-4.5) mg/dL Magnesium 2.3 (1.6-2.6) mg/dL Total Bilirubin 0.2 (0.0-1.0) mg/dL AST 25 (5-31) U/L ALT 25 (0-31) U/L Alkaline Phosphatase 92 (39-117) U/L Total Protein 7.6 (6.5-8.0) g/dL Albumin 4.5 (3.5-5.0) g/dL PTH Intact 516.5 H (8.7-77.1) pg/mL Discharge Plan Discharge Clinical Impression: Hypercalcemia Patient Disposition: Admitted As Inpatient
--- NOTE | 2025-02-04 23:49 | PC.NURSE ---
pt ambulated to the bathroom with walker and family, pt incont of urine in hallway. family assist with washing and changing. commode brought to room for future use.
--- NOTE | 2025-02-04 23:51 | PC.NURSE ---
medication not available in pyxis, pharmacy not on site. PA aware.
[2025-02-05 00:55] LABS: Albumin Level 4.0 g/dL (3.5-5.0); Calcium 12.6 mg/dL (8.4-10.2)
--- NOTE | 2025-02-05 00:56 | PM.IMHP ---
History of Present Illness Date of Service: 02/05/25 Attending physician on admission: Kai Ruiz Chief Complaint: Dizziness Ana Nova is a 59 years old woman with past medical history significant for stroke, schwannoma status post surgery , vertigo, osteoporosis on calcium pills, alendronate and vitamin-D and hypothyroidism on hormone replacement presents to the emergency department complaining of dizziness over the last week and migraine headaches. She has been taking Topamax and Antivert without significant improvement of symptoms. she denied any chest pain, shortness on breath, loss of consciousness, abdominal pain, nausea, vomiting or diarrhea. She reported frequent urination. In the ED, she was found to have stable vital signs. Last blood pressure is 156/85. Blood workup showed hypernatremia that corrected 146--> 143, potassium 5.4, hyperchloremia 112, HC03 24, anion gap 10, BUN 13, creatinine 1.35 and hypercalcemia of 14.5 then 12.6. Phosphorus is 1.1 then 1.5. LFTs are normal. Albumin is 4.0. TSH is 5.78 and free T4 0.90. CXR is negative. ECG showed normal sinus rhythm, QTC 354 milliseconds. ED tx: NS 1 L bolus. Review of Systems Review of Systems: All 12 systems were reviewed and normal except as noted in HPI. [facility] Medical History (Updated 02/05/25 @ 01:54 by Kai Ruiz MD) Schwannoma Diverticulosis Tubular adenoma of colon CVA (cerebral vascular accident) Hypothyroidism Family History Mother No known health problems Father No known health problems Surgical History H/O colonoscopy History of tubal ligation History of surgery Social History Alcohol intake: never Patient Tobacco Use Status: Former Tobacco user Advance Directives: No Advance Directives Information Provided: No Patient : No Meds Allergies Allergy/AdvReac Type Severity Reaction Status Date / Time No Known Allergies Allergy Verified 02/04/25 21:40 Active Medications: Current Medications Acetaminophen (Acetaminophen 325 Mg Tablet) 975 mg PO Q6H PRN PRN Reason: Pain, Mild 1-3,fever,headache Enoxaparin Sodium (Enoxaparin Sodium 40 Mg/0.4 Ml Syringe) 40 mg SUBCUT Q24H [facility] Lactated Ringer's (Lr) 1,000 mls @ 150 mls/hr IVCONT .Q6H40M [facility] Lactated Ringer's (Lr) 1,000 mls @ 999 mls/hr IV .Q1H1M STA Stop: 02/05/25 01:01 Melatonin (Melatonin 3 Mg Tablet) 6 mg PO BEDTIME PRN PRN Reason: Insomnia Sodium Chloride (0.9 % Sodium Chloride Flush 3 Ml Syringe) 3 ml IVFLUSH QSHIFT [facility] Home Medications ?Medication ?Instructions ?Recorded ?Confirmed ?Last Taken ?Type alendronate 70 mg tablet 70 mg PO QWEEK 10/08/22 06/03/23 Unknown History calcium 500 mg (as carbonate)-vit 1 tab PO BEDTIME 10/08/22 06/03/23 Unknown History D3 10 mcg (400 unit) chewable tablet cholecalciferol (vitamin D3) 25 25 mcg PO BEDTIME 10/08/22 06/03/23 Unknown History mcg (1,000 unit) tablet rosuvastatin 40 mg tablet 40 mg PO DAILY 06/03/23 06/03/23 Unknown History Physical Exam Vital Signs and Narrative: Vital Signs: Last Vital Signs Temp 97.5 F 02/04/25 21:33 Pulse 84 02/04/25 21:33 Resp 20 02/04/25 21:33 BP 156/85 H 02/04/25 21:33 Pulse Ox 95 02/04/25 21:33 O2 Del Method Room Air 02/04/25 21:33 BMI result Body Mass Index 23.1 General: Alert, oriented, in no acute distress. Well nourished and cooperative. Afebrile. Hard of hearing. HEENT: Head normocephalic, atraumatic. PER, EOMI. Sclerae anicteric, conjunctiva clear. Neck: Supple or JVD. Heart: RRR, no murmurs, rubs or gallops. Lungs: Clear to auscultation bilaterally. No wheezes, rales, or rhonchi. Normal respiratory effort. Abdomen: Soft, non tenderness, nondistended, normoactive bowel sounds. No hepatosplenomegaly, masses or masses. Extremities: No calf tenderness bilaterally, no swelling Musculoskeletal: Full range of motion. No joint swelling, deformity, or tenderness. Generalized atrophy. Skin: Warm/Dry. No pallor. No jaundice. Neurologic: Alert & oriented x4. Moving all extremities spontaneously. Normal speech. Psychological: Normal mood and affect. Thought process coherent. Results Labs 02/04/25 21:48 02/05/25 00:25 Labs: Laboratory Results - last 24 hr 02/04/25 02/04/25 02/05/25 21:48 22:51 00:25 MCV 94.5 MCH 31.7 MCHC 33.6 RDW 12.5 Plt Count 266 MPV 9.1 L Immature Gran % (Auto) 0.1 Neut % (Auto) 58.8 Lymph % (Auto) 29.6 Millard % (Auto) 10.0 Eos % (Auto) 1.2 Baso % (Auto) 0.3 Lymph # (Auto) 2.1 Millard # (Auto) 0.7 Eos # (Auto) 0.1 Baso # (Auto) 0.0 Abs Immat Gran (auto) 0.01 Absolute Neuts (auto) 4.1 Absolute Nucleated RBC 0.000 Nucleated RBC % (auto) 0.0 Anion Gap 10 L Estim Creat Clear Calc 31.3 Estimated GFR 40 Random Glucose 128 H Calcium 14.5 H* 12.6 H* D Phosphorus 1.1 L 1.5 L Magnesium 2.3 Total Bilirubin 0.2 AST 25 ALT 25 Alkaline Phosphatase 92 Total Protein 7.6 Albumin 4.5 4.0 PTH Intact 516.5 H Assessment and Plan (1) Hypercalcemia: Status: Acute (2) Hypophosphatemia: Status: Acute Plan Ana Nova is a 59 y/o woman with a PMHx osteoporosis on calcium pills vitamin-D who presents with: Hypercalcemia, hypophosphatemia and normal magnesium; primary hyperparathyroidism. Continue aggressive hydration. Start pamidronate IV.Check ionized calcium, vitamin D 25-OH, vitamin 1,25 dihydroxy, urine calcium, urine phosphorus, serum and urine electrophoresis, check urinalysis. Replete phosphorus as needed. Continue to monitor electrolytes. Parathyroid sestamibi. Hold calcium supplements and vitamin-D for now. Hx schwannoma. status post surgery and chemotherapy. Hypothyroidism. Elevated TSH and normal free T4. Continue levothyroxine. Hyperlipidemia. Continue statin. Osteoporosis. On alendronate and calcium pills. Will hold these for now. Old CVA. Code status: Full DVT prophylaxis: Lovenox med rec pending Patient will need hospitalization for at least 2 midnights for severe hypercalcemia treatment with IV bisphosphonate and aggressive IV fluids. This documentation was generated using dictation software; minor spreading or trucker hand errors may be present. Quality Stroke Does the patient have a stroke diagnosis?: No VTE Prior VTE?: No VTE Risk Level:: Medical - moderate - high VTE Device Contraindication: Treatment Not Indicated VTE Drug Contraindication: N/A - Med Ordered
[2025-02-05 01:08] LABS: Free T4 (Free Thyroxine) 0.90 ng/dL (0.71-1.85)
--- OUTSIDE RECORDS SUMMARY | 2025-02-05 01:09 | XMS_ITS | Encounter Summary ---
Author Organization [employer] Address [address] [place] [address] Care Team Providers Care Brand Coordinator Name Role Phone Lashawn Song MD Primary Care Provider [phone] Encounter Details Date Type Department Care Team (Latest Contact Info) Description 02/04/2025 Travel Social History Tobacco Use Types Packs/Day Years Used Date Smoking Tobacco: Never Smokeless Tobacco: Never Depression Answer Date Recorded Patient Health Questionnaire-9 Score 2 06/24/2023 Patient Health Questionnaire-9 Score 2 06/24/2023 Last PHQ-9: Questionnaire Data Not on file 0 06/24/2023 Housing Stability Answer Date Recorded What is your housing situation today? I have stevan chapincito 09/07/[address] you li [...] PM EDT documented as of this encounter Plan of Treatment Not on file documented as of this encounter Visit Diagnoses Not on filedocumented in this encounter Additional Health Concerns Assessment Noted Time PHQ-9 Depression Total Score: 2 06/24/19 24 1:52 PM EDT documented as of this encounter Care Teams Brand Coordinator Relationship Specialty Start Date End Date Lashawn Song MD [address] [place] [id number] PCP - General Internal Medicine 03/31/13 documented as of this encounter
--- OUTSIDE RECORDS SUMMARY | 2025-02-05 01:09 | XMS_ITS | Encounter Summary ---
Author Organization [employer] Address [address] [facility] [facility] [address] [place] [address] Care Team Providers Care Viscosity Tester Name Role Phone Lashawn Song MD Primary Care Provider [phone] Encounter Details Date Type Department Care Team (Late st Contact Info) Description 02/04/2025 Telephone [facility] [address] [place] [address] Mary De Jesus NP [address] [place] [address] Social History Tobacco Use Types Packs/Day Years [...] PM EDT documented as of this encounter Miscellaneous Notes * Telephone Encounter - Mary De Jesus NP - 02/04/2025 7:45 PM EST mail caller documentation: Returned call to Antonio at [facility] with critical lab value of Calcium level 14.3. Call placed to patient who was informed of critical lab and need for emergency intervention. Patient verbalized difficulty understanding as she is hard of hearing. She gave permission for me to speak with listed legal guardian Kayla who unfortunately did not answer the phone. Unsuccessful call returned to patient for alternate contact. I alternatively called which was alternate number provided by lab for the patient. At this number, I spoke with the patient's [id number] who is also the patient's SCULLION CHIEF and patient's son Luis. Luis was informed of critical lab and advised to take patient to ED for cardiac evaluation due to increased risk for arrhythmia associated with elevated calcium level. Luis verbalized understanding and agrees to go pick pulling machine operator the patient. documented in this encounter Plan of Treatment Not on file documented as of this encounter Visit Diagnoses Not on filedocumented in this encounter Additional Health Concerns Assessment Noted Time PHQ-9 Depression Total Score: 2 06/24/19 24 1:52 PM EDT documented as of this encounter Care Teams Viscosity Tester Relationship Specialty Start Date End Date Lashawn Song MD [address] [place] [address] PCP - General Internal Medicine 03/31/13 documented as of this encounter
--- OUTSIDE RECORDS SUMMARY | 2025-02-05 01:09 | XMS_ITS | Encounter Summary ---
Author Organization [employer] Address [address] [facility] [address]t [place] [address] Care Team Providers Care Blower And Compressor Assembler Name Role Phone Lashawn Song MD Primary Care Provider [phone] Encounter Details Date Type Department Care Team (Late st Contact Info) Description 02/04/2025 Orders Only [facility] [address] [place], [place] [phone] Lashawn Song MD [address] [place] [address] Social History Tobacco Use Types Packs/Day Years [...] the past 12 months, has t he [employer], gas, oil or water Provender threatened to shut off services in your [...] on file documented as of this encounter Procedures Procedure Name Priority Date/Time Associated Diagnosis Comments XR CHEST 1 VIEW Routine 02/05/2025 12:50 AM EST PTH, INTACT WITHOUT CALCIUM Routine 02/04/2025 10:51 PM EST PHOSPHATE ( PHOSPHORUS) Routine 02/04/2025 9:48 PM EST MAGNESIUM Routine 02/04/2025 9:48 PM EST T4, FREE Routine 02/04/2025 3:17 PM EST documented in this encounter Results * XR Chest 1 View (02/05/2025 12:50 AM EST) Anatomical Region Laterality Modality Chest Radiographic Sanam ging 02/05/2025 12:5 0 AM EST Narrative 02/05/2025 12:52 AM EST [address] [address] XRay Report Signed Patient: Ana Nova MR#: [id number] : 1965 Acct:[id number] Age/Sex: 59 / F ADM Date: 02/05/25 Loc: HO.S3 351-[address]: Kai Ruiz MD Ordering Physician: Kai Wilson MD Date of Service: 02/05/25 Procedure(s): XR chest 1V Accession Number(s): [id number] cc: Lashawn Song MD; Kai Wilosn MD Reason for Exam: severe hypercalcemia CLINICAL HISTORY: severe hypercalcemia 1 view chest x-ray Comparison: None provided Findings: No consolidation or effusion. Normal size heart. No acute fracture. IMPRESSION: 1. No acute findings. This document has been electronically signed by: Jessica Prasad MD on 02/05/2025 00:50:30 Dictated By: Jessica Prasad MD Signed By: <Electronically signed by Jessica Prasad MD in OV> 02/05/2550 DD/ TD/TT: 02/05/2549 Managing Attorney: Procedure Note Donotuseinterpreter, Image - 02/05/2025 [place] [address] XRay Report Signed Patient: Tulio Nova#: [id number] : 1965Acct:[id number] Age/Sex: 59 / FADM Date: 02/05/25 Loc: HO.S3 351-[address]: Kai Ruiz MD Ordering Physician: Kai Wilson MD Date of Service: 02/05/25 Procedure(s): XR chest 1V Accession Number(s): [id number] cc: Lashawn Song MD; Kai Wilson MD Reason for Exam: severe hypercalcemia CLINICAL HISTORY: severe hypercalcemia 1 view chest x-ray Comparison: None provided Findings: No consolidation or effusion. Normal size heart. No acute fracture. IMPRESSION: 1. No acute findings. This document has been electronically signed by: Jessica Prasad MD on 02/05/2025 00:50:30 Dictated By: Jessica Prasad MD Signed By: <Electronically signed by Jessica Prasad MD in OV> 02/05/2550 DD/ TD/TT: 02/05/2549 Managing Attorney: [facility] External Provider IMG XR PROCEDURES Final Result * (ABNORMAL) PTH, Intact Without Calcium (02/04/2025 10:51 PM EST) Parathyroid Hormone, Intact 516.5(H) 8.7 - 77.1 pg/mL [facility] 02/04/2025 10:5 1 PM EST 02/04/2025 10:54 PM EST Generic External Data Provider LAB BLOOD ORDERAB LES Final Result Performing Organization Address [facility] Co de Phone Number [facility] [address] [place] [phone] * Magnesium (02/04/2025 9:48 PM EST) [facility] Magnesium 2.3 1.6 - 2.6 mg/dL [facility] 02/04/2025 9:48 PM EST 02/04/2025 10:17 PM EST Generic External Data Provider LAB BLOOD ORDERAB LES Final Result Performing Organization Address [facility] de Phone Number [facility] [address] [place] [phone] * (ABNORMAL) Phosphate (As Phosphorus) (02/04/2025 9:48 PM EST) Pathologist [facility] Phosphorus 1.1(L) 2.7 - 4.5 mg/dL [facility] 02/04/2025 9:48 PM EST 02/04/2025 10:17 PM EST Generic External Data Provider LAB BLOOD ORDERAB LES Final Result Performing Organization Address [facility] de Phone Number [facility] [address] [place] [phone] * T4, Free (02/04/2025 3:17 PM EST) Pathologist [facility] Free T4 (Free Thyroxine) 0.90 0.71 - 1.85 ng/dL [facility] 02/04/2025 3:17 PM EST 02/04/2025 6:06 PM EST Lashawn Song MD LAB BLOOD ORDERABLES Final Result [facility] [address] [place] [phone] documented in this encounter Visit Diagnoses Not on filedocumented in this encounter Additional Health Concerns Assessment Noted Time PHQ-9 Depression Total Score: 2 06/24/19 24 1:52 PM EDT documented as of this encounter Care Teams Blower And Compressor Assembler Relationship Specialty Start Date End Date Lashawn Song MD [address] [place] [phone] PCP - General Internal Medicine 03/31/13 documented as of this encounter
--- OUTSIDE RECORDS SUMMARY | 2025-02-05 01:09 | XMS_ITS | Encounter Summary ---
Author Organization [employer] Address [address] [facility] [address] [place] [address] Care Team Providers Care Carbon Sequestration Plant Operator Name Role Phone Lashawn Song MD Primary Care Provider Encounter Details Date Type Department Care Team (Late st Contact Info) Description 03/12/[address] [facility] [address] [place], [place] [phone] Lashawn Song MD [address] [place], [place] [phone] Hypercalcemia (Primary Dx); Positive colorectal cancer screening using Cologuard test Social History Tobacco Use Types Packs/Day Years Used Date Smoking Tobacco: Never Smokeless Tobacco: Never Comments Unknown Sex and Gender Information Value Date Recorded Sex Assigned at Female 01/21/2022 10:16 AM EDT Legal Sex Female 10:16 AM EDT Gender Identity Female 01/21/2022 10:16 AM EDT Sexual Orientation Choose not to disclose 2022 1:46 PM EDT documented as of this encounter Plan of Treatment Scheduled Orders Name Type Priority Associated Diagnoses Orde r Schedule PTH, Intact Without Calcium Lab Routine Hypercalcemia Expected: 03/12/2023, Expires: 03/12/2024 documented as of this encounter Visit Diagnoses Diagnosis Hypercalcemia- Primary Positive colorectal cancer screening using Cologuard test documented in this encounter Care Teams Carbon Sequestration Plant Operator Relationship Specialty Start Date End Date Lashawn Song MD [address] [place] [address] PCP - General Internal Medicine 03/31/13 documented as of this encounter
--- OUTSIDE RECORDS SUMMARY | 2025-02-05 01:09 | XMS_ITS | Encounter Summary ---
Author Organization [employer] Address [address] [facility] [address] [place] [address] Care Team Providers Care Attraction Worker Name Role Phone Lashawn Song MD Primary Care Provider [phone]- [phone] Reason for Visit * Reason Onset Date Comments Nurse Triage 02/01/2025 Encounter Details Date Type Department Care Team (Late st Contact Info) Description 02/01/2025 Telephone [facility] [address] [place] [address] Lashawn Song MD [address] [place] [address] Nurse Triage Social History Tobacco Use Types Packs/Day Years [...] encounter Miscellaneous Notes * Telephone Encounter - Bijal Carrion RN - 02/01/2025 2:56 PM EST Return call placed to the pt daughter Kayla (has permission to speak on the pt behalf) in regard to pt ongoing headaches. Per Kayla, the pt has been having more acute painful migraines rated at a 8/10 for pain. The migraines tend to happen in the morning and are not brought on by any aggravating factor. The pt does not have any N/T, [...] appointment on Friday to call back the officeor present to the [facility]. Protocol Used: Headache (Adult) Protocol-Based Disposition: See in Office or Video Visit Today Video visit offer not recorded Positive Triage Questions: * Patient wants to be seen * Moderate headache (e.g., interferes with normal activities) present > 24 hours and unexplained * Mild - Moderate headache present > 3 days (72 hours) * New-onset headache and age > 50 years * Mild to moderate headache * All higher-acuity triage questions were negative * Telephone Encounter - Luisa Trae - 02/01/2025 2:32 PM EST Symptom: Headache Outcome: Schedule an urgent appointment (within 4 hours) or talk to a nurse or provider soon Reason: Getting worse The caller accepted this outcome. Please call Kayla documented in this encounter Plan of Treatment Not on file documented as of this encounter Visit Diagnoses Not on filedocumented in this encounter Additional Health Concerns Assessment Noted Time PHQ-9 Depression Total Score: 2 06/24/19 24 1:52 PM EDT documented as of this encounter Care Teams Attraction Worker Relationship Specialty Start Date End Date Lashawn Song MD [address] [place] [phone] PCP - General Internal Medicine 03/31/13 documented as of this encounter
--- OUTSIDE RECORDS SUMMARY | 2025-02-05 01:09 | XMS_ITS | Clinical Summary ---
Author Organization [employer] Address [address] [place] [address] Care Team Providers Care Siphon Operator Name Role Phone Lashawn Song MD Primary Care Provider [phone] Allergies No known active allergies Medications * This document contains information received from the source organization and may not represent a complete record from that organization. Diclofenac Sodium 1 % gel To apply to the affected area 4 times a day 100 g 4 Active levothyroxine (Synthroid, Levoxyl) 88 MCG tabletIndications: Acquired hypothyroidism TAKE ONE TABLET EVERY MORNING (thyroid) 30 tablet 11 5 Active rosuvastatin (Crestor) 40 MG tablet TAKE ONE TABLET EVERY NIGHT AT BEDTIME (CHOLESTEROL) 30 tablet 5 Active cholecalciferol (Vitamin D-3) 25 MCG tabletIndications: Low vitamin D level TAKE ONE TABLET EVERY NIGHT AT BEDTIME 60 tablet 5 Active cholecalciferol (Vitamin D-3) 25 MCG tabletIndications: Low vitamin D level Take 1 tablet (25 mcg) by mouth Once per day. 60 tablet 11 5 Active Calcium Carb-Cholecalcifer ol 500-10 MG-MCG chewable tabletIndications: Other osteoporosis without current pathological fracture CHEW ONE TABLET EVERY NIGHT AT BEDTIME (BONES) 90 tablet 1 5 Active alendronate (Fosamax) 70 MG tabletIndications: Other osteoporosis without current pathological fracture TAKE ONE TABLET ONCE WEEKLY FRIDAY MORNING 4 tablet 5 5 Active topiramate (Topamax) 25 MG tabletIndications: Acute nonintractable headache, unspecified headache type Take 1 tablet (25 mg) by mouth every 12 (twelve) hours. 60 tablet 11 5 02/05/20 26 Active meclizine (Antivert) 25 MG tabletIndications: Dizziness Take 1 tablet (25 mg) by mouth if needed in the morning, at noon, and at bedtime for dizziness for up to 10 days. 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/31/2013 Gastroesophageal reflux disease 03/31/2013 Hemiparesis (CMS/HCC) 03/31/2013 Schwannoma 03/31/2013 Encephalomalacia 03/31/2013 Resolved Problems Problem Noted Date Diagnosed Date Resolved Date Recurrent major depressive disorder 11/28/2023 11/28/2023 Encounters Date Type Department Care Team Description 02/04/2025 2:30 PM EST Office Visit [facility] [address] [place] [address] Lashawn Song MD Acquired hypothyroidism (Primary Dx); Hypercholesterolemia; Elevated BP reading w/ no diagnosis of HTN; Acute nonintractable headache, unspecified headache type; Urine frequency; Dizziness; Encounter for screening mammogram for malignant neoplasm of breast 02/04/2025 Telephone [facility] MED[facility] [address] [place] [phone] Mary De Jesus NP 02/04/2025 Orders Only [facility] [address] [place] [address] Lashawn Song MD 02/04/2025 Travel 02/01/[address] [address] Lashawn Song MD Nurse Triage 12/29/[address] [phone] Alma Boston MD Other osteoporosis without current pathological fracture [address] [address] Marina Floyd CNM No Show 12/13/2024 Telephone [facility] W[facility] [address] [place] [address] Kiersten Lobato MA 11/30/2024 Telephone [facility] MEDICINE [address] [place], [place] [phone] Lashawn Song MD No Show 11/29/2024 Telephone [facility] MED & PEDS [address] [place] [address] Lashawn Song MD Chart Prep 11/23/2024 Patient Outreach [facility] [address] [place] [address] Lashawn Song MD Pre-visit Planning (Pre visit planning LVM ) from Last 3 Months Immunizations Immunization Administration Dates Next Due Hep A, Adult 01/29/2018,01/14/2008,09/29/2007 Hep B, adult 01/14/2008,11/02/2007,09/29/2007 Influenza Injectable Quadriv alant Preservative Free IIV4 MDCK 02/12/2022 Influenza injectable quadriv alent IIV4 with preservative 11/28/2022,12/21/2018,01/29/2018 Influenza injectable quadriv alent preservative free 2019,01/12/2015 Influenza, IIV3, injectable 01/29/2010 Influenza, Split (incl. paul fied surface antigen) 03/31/2013,12/20/2011 Influenza, seasonal, injecta ble, preservative free 12/31/2023 Pfizer Covid-19 Vaccine 12+ 12/31/2023 Tdap 05/13/2023,03/22/2010 Zoster, Recombinant 07/14/2023,05/13/2023 Social History Tobacco Use Types Packs/Day Years Used Date Smoking Tobacco: Never Smokeless Tobacco: Never Tobacco Cessation:Counseling Given: Not Answered Depression Answer Date Recorded Patient Health Questionnaire-9 [...] not to disclose 2022 1:46 PM EDT Last Filed Vital Signs Vital Sign Reading Time Taken Comments Blood Pressure 143/83 02/04/2025 2:50 PM EST Pulse 70 02/04/2025 2:50 PM EST Temperature 36.2 C (97.2 F) 06/25/2024 3:26 PM EDT Respiratory Rate 20 02/04/2025 2:50 PM EST Oxygen Saturation 97% 02/04/2025 2:50 PM EST Inhaled Oxygen Concentration - - Weight 52.2 kg (115 lb) 02/04/2025 2:50 PM EST Height 149.9 cm (4' 11 ) 02/04/2025 2:50 PM EST Body Mass Index 23.23 02/04/2025 2:50 PM EST Plan of Treatment Health Maintenance Due Date Last Done Comments CT Colonography 1965 Colonoscopy 1967 FIT 1965 Sigmoidoscopy 1965 Disability Screening 1967 Alcohol/Substance Use Screening 1979 Hepatitis C Screening 12/13/1985 Hepatitis B Vaccines (3 of 3 - 19+ 3-dose series) 03/31/2008 01/14/2008, 11/02/2007, 09/29/2007 Pneumococcal Vaccine: 50+ Years (1 of 1 - PCV) 12/13/2017 FOBT 03/18/2024 03/18/2023 Depression Screening 06/23/2024 06/24/2023, 06/24/19 24 COVID-19 Vaccine ( - season) 2024 12/31/2023, 02/19/2021, 08/18/2020, Additional history exists Influenza Vaccine (#1) 2024 , 11/28/2022, 02/12/2022, Additional history exists Cervical Cancer Screening 12/13/2024 HPV/Cotest 12/13/2024 2019, 07/23/2016 Pap Smear 12/13/2024 2019 Mammogram 09/02/2025 09/03/2023, 0609/2022, 01/08/2018 SDOH Screening 09/07/2025 09/07/2024 Tobacco Screening 02/04/2026 02/04/2025 Colorectal Cancer Screening 03/18/2026 FIT DNA/Cologuard 03/18/2026 03/18/2023 DTaP/Tdap/Td Vaccines (3 - Td or Tdap) 05/13/2033 05/13/2023, 03/22/2010 RSV Patients and Patients Aged 60 years or older (1 - 1-dose 75+ series) 12/13/2042 Hepatitis A Vaccines Completed 01/29/2018, 01/14/2008, 09/29/2007 HIV Screening Completed 09/06/2021 Zoster Vaccines Completed 07/14/2023, 05/13/2023 HIB Vaccines Aged Out No longer eligi ble based on patient's age to complete this topic HPV Vaccines Aged Out No longer eligi ble based on patient's age to complete this topic IPV Vaccines Aged Out No longer eligi ble based on patient's age to complete this topic Meningococcal B Vaccine Aged Out No l onger eligible based on patient's age to complete this topic Meningococcal Vaccine Aged Out No sharon anthony eligible based on patient's age to complete this topic RSV under 20 months Aged Out No longe r eligible based on patient's age to complete this topic Rotavirus Vaccines Aged Out No longer eligible based on patient's age to complete this topic Procedures Procedure Name Priority Date/Time Associated Diagnosis Comments XR CHEST 1 VIEW Routine 02/05/2025 12:50 AM EST PTH, INTACT WITHOUT CALCIUM Routine 02/04/2025 10:51 PM EST MAGNESIUM Routine 02/04/2025 9:48 PM EST PHOSPHATE ( PHOSPHORUS) Routine 02/04/2025 9:48 PM EST CBC WITH AUTO DIFFERENTIAL Routine 02/04/2025 3:47 PM EST Acquired hypothyroidism Hypercholesterolem ia Elevated BP reading w/ no diagnosis of HTN T4, FREE Routine 02/04/2025 3:17 PM EST TSH W/REFLEX TO FT4 Routine 02/04/2025 3 :17 PM EST Acquired hypothyroidism Hypercholesterolem ia Elevated BP reading w/ no diagnosis of HTN LIPID PANEL, STANDARD Routine 02/04/2025 3:17 PM EST Acquired hypothyroidism Hypercholesterolem ia Elevated BP reading w/ no diagnosis of HTN COMPREHENSIVE METABOLIC PANEL Routine 02/04/2025 3:17 PM EST Acquired hypothyroidism Hypercholesterolem ia Elevated BP reading w/ no diagnosis of HTN BI MAMMOGRAM SCREENING TOMOSYNTHESIS BILATERAL Routine 09/03/2023 2:31 PM EDT LAB COLOGUARD COLON CANCER SCREEN Routine 03/18/2023 11:45 AM EST Colon cancer screening HIV 1/2 ANTIGEN/ANTIBODY, FOURTH GENERATION W/RFL Routine 09/06/2021 11:15 AM EDT HPV MRNA E6/E7 Routine 2019 3:00 PM EDT THINPREP PAP Routine 2019 3:00 PM EDT from Last 3 Months or Most Recently Relevant to Health Maintenance Results * XR Chest 1 View (02/05/2025 12:50 AM EST) Anatomical Region Laterality Modality Chest Radiographic Sanam ging 02/05/2025 12:5 0 AM EST Narrative 02/05/2025 12:52 AM EST [address] [address] XRay Report Signed Patient: Ana Nova MR#: [id number] : 1965 Acct:[id number] Age/Sex: 59 / F ADM Date: 02/05/25 Loc: HO.S3 351-[address]: Kai Ruiz MD Ordering Physician: Kai Wilson MD Date of Service: 02/05/25 Procedure(s): XR chest 1V Accession Number(s): [id number] cc: Lashawn Song MD; Kai Wilson MD [...] Jessica Prasad MD in OV> 02/05/2550 DD/ 005 TD/TT: 02/05/2549 Breaker Mechanic: Procedure Note Donotuseinterpreter, Image - 02/05/[address] [address] XRay Report Signed Patient: Brianna NovaR#: [id number] : 1965Acct:[id number] Age/Sex: 59 / FADM Date: 02/05/25 Loc: HO.S3 351-[address]: Kai Ruiz MD Ordering Physician: Kai Wilson MD Date of Service: 02/05/25 Procedure(s): XR chest 1V Accession Number(s): [id number] cc: Lashawn Song MD; Kai Wilson MD [...] MD in OV> 02/05/2550 DD/ TD/TT: 02/05/2549 Breaker Mechanic: [facility] External Provider IMG XR PROCEDURES Final Result * (ABNORMAL) PTH, Intact Without Calcium (02/04/2025 10:51 PM EST) Parathyroid Hormone, Intact 516.5(H) 8.7 - 77.1 pg/mL [facility] 02/04/2025 10:5 1 PM EST 02/04/2025 10:54 PM EST Generic External Data Provider LAB BLOOD ORDERAB LES Final Result Performing Organization Address [facility]/ZIP Co de Phone Number [facility] [address] [place] [phone] * (ABNORMAL) Phosphate (As Phosphorus) (02/04/2025 9:48 PM EST) Phosphorus 1.1(L) 2.7 - 4.5 mg/dL [facility] 02/04/2025 9:48 PM EST 02/04/2025 10:17 PM EST Generic External Data Provider LAB BLOOD ORDERAB LES Final Result [facility] [address] [place] [phone] * Magnesium (02/04/2025 9:48 PM EST) [facility] Magnesium 2.3 1.6 - 2.6 mg/dL [facility] 02/04/2025 9:48 PM EST 02/04/2025 10:17 PM EST Generic External Data Provider LAB BLOOD ORDERAB LES Final Result [facility] [address] [place] [phone] * (ABNORMAL) CBC auto differential (02/04/2025 3:47 PM EST) [facility] White Blood Count 6.1 4.8 - 10.8 X10*3/uL [facility] Red Blood Count 4.18(L) 4.20 - 5.50 X10*6/uL [facility] Hemoglobin 13.2 12.0 - 16.0 g/dl [facility] Hematocrit 39.7 37.0 - 47.0 % [facility] Mean Corpuscular Volume 95.0 80.0 - 98.0 fL [facility] Mean Corpuscular Hemoglobin 31.6 27.0 - 33.0 pg [facility] Mean Corpuscular HGB Conc 33.2 31.0 - 35.0 g/dl [facility] Red Cell Distribution Width 12.5 11.0 - 16.0 % [facility] Platelet Count 250 160 - 400 X10*3/uL [facility] Mean Platelet Volume 9.6 9.4 - 12.3 fL [facility] Neutrophils Percent Auto 62.9 45 - 73 % [facility] Imm Gran Pct Auto 0.2 0.0 - 0.4 % [facility] Lymphocytes Percent Auto 27.4 20 - 40 % [facility] Monocytes Percent Auto 8.2 2 - 11 % [facility] Eosinophils Percent Auto 0.8 0 - 4 % [facility] Basophils Percent Auto 0.5 0 - 2 % [facility] NRBC Pct Auto 0.0 0.0 - 0.2 /100WBC [facility] Neutrophils Absolute Auto 3.9 2.0 - 8.3 x10*3/uL [facility] Imm Gran Abs Auto 0.01 0.00 - 0.03 X10*3/uL [facility] Lymphocytes Absolute Auto 1.7 1.2 - 4.9 X10*3/uL [facility] Monocytes Absolute Auto 0.5 0.1 - 1.2 X10*3/uL [facility] Eosinophils Absolute Auto 0.1 0.0 - 0.4 X10*3/uL [facility] Basophils Absolute Auto 0.0 0.0 - 0.2 X10*3/uL [facility] NRBC Abs Auto 0.000 0.0 - 0.012 X10*3/uL [facility] Blood Venous blood specimen / Unknown 02/04/2025 3:47 PM EST 02/04/2025 6:06 PM EST us Lashawn Song MD LAB BLOOD ORDERABLES Final Result [facility] [address] [place] [phone] * (ABNORMAL) TSH with Reflex to Free T4 (02/04/2025 3:17 PM EST) TSH reflex Free T4 5.78(H) 0.32 - 4.0 uIU/mL [facility] Blood Venous blood specimen / Unknown 02/04/2025 3:17 PM EST 02/04/2025 6:06 PM EST Lashawn Song MD LAB BLOOD ORDERABLES Final Result [facility] [address] [place] [phone] * T4, Free (02/04/2025 3:17 PM EST) Free T4 (Free Thyroxine) 0.90 0.71 - 1.85 ng/dL [facility] 02/04/2025 3:17 PM EST 02/04/2025 6:06 PM EST us Lashawn Song MD LAB BLOOD ORDERABLES Final Result Performing Organization Address City/[facility]/ZIP Co de Phone Number [facility] [address] [place] [phone] * Lipid Panel, Standard (02/04/2025 3:17 PM EST) Triglycerides 132 <150 mg/dL [facility] Comment:Desirable Triglyceri de: less than 150 mg/dLBorderline High Triglyceride 150-199 mg/dLHigh Triglyceride: 200-499 mg/dLVery High Triglyceride: greater than or equal to 5OO mg/dL Cholesterol 154 <200 mg/dL [facility] Comment:Desirable Cholestero l: less than 200 mg/dLBorderline High Cholesterol: 200-239 mg/dLHigh Cholesterol: greater than 239 mg/dL LDL Cholesterol Calculated 73 <100 mg/dL [facility] Comment:Desirable LDL: less than 100 mg/dLNear Optimal/Above Optimal LDL: 110- 129 mg/dLBorderline High LDL: 130-159 mg/dLHigh LDL: 160-189 mg/dLVery High LDL: greater than or equal to 190 mg/dL HDL Cholesterol 55 >40 mg/dL [facility] Comment:Desirable HDL: great er than 40 mg/dL Note: This HDL assay may give artificially low results in patients with liver disease. Blood Venous blood specimen / Unknown 02/04/2025 3:17 PM EST 02/04/2025 6:06 PM EST us Lashawn Song MD LAB BLOOD ORDERABLES Final Result Performing Organization Address City/[facility]/ZIP Co de Phone Number [facility] [address] [place] [phone] * (ABNORMAL) Comprehensive Metabolic Panel (02/04/2025 3:17 PM EST) Sodium 146(H) 135 - 145 mmol/L [facility] Potassium 3.8 3.3 - 5.1 mmol/L [facility] Chloride 111(H) 96 - 108 mmol/L [facility] Carbon Dioxide 30(H) 22 - 29 mmol/L [facility] Anion Gap 9(L) 12 - 20 [facility] Urea Nitrogen (BUN) 13 9 - 16 mg/dL [facility] Creatinine, Serum 1.09 0.5 - 1.4 mg/dL [facility] Estimated Glomerular Filt Rate 52 [facility] Comment:Chronic Kidney Disea se: Estimated GFR < 60 mL/min/1.74r5Ojjnwc Kidney Disease: Estimated GFR < 15 mL/min/1.73m2 Glucose 82 60 - 115 mg/dL [facility] Calcium 14.3(HH) 8.4 - 10.2 mg/dL [facility] Comment:Critical value for t est(s): CALS Results called to and readback by: Mary Espitia Person calling: [email or web address] Date: 02/04/25Time:1912 Bilirubin, Total 0.3 0.0 - 1.0 mg/dL [facility] Aspartate Amino Transferase 32(H) 5 - 31 U/L [facility] Alanine Aminotransferase 22 0 - 31 U/L [facility] Total Protein 7.3 6.5 - 8.0 g/dL [facility] Albumin Level 4.3 3.5 - 5.0 g/dL [facility] Alkaline Phosphatase 84 39 - 117 U/L [facility] Blood Venous blood specimen / Unknown 02/04/2025 3:17 PM EST 02/04/2025 6:06 PM EST us Lashawn Song MD LAB BLOOD ORDERABLES Final Result [facility] [address] [place] [phone] * BI Mammogram Screening Tomosynthesis Bilateral (09/03/2023 2:31 PM EDT) Anatomical Region Laterality Modality Breast Bilateral Mammography 09/03/2023 2:31 PM EDT Narrative 10/03/2023 9:01 AM EDT [facility] [address] [place] [address] Mammography Report Signed Patient: Ana Nova MR#: [id number] : 1965 Acct:[id number] Age/Sex: 57 / F ADM Date: 09/03/23 Loc: HO.MAMMO Attending Dr: Lashawn Song MD Ordering Physician: Lashawn Song MD Results: 1 Negative Date of Service: 09/03/23 Follow Up: 1 Year From Orig inal Mammogram Procedure(s): MM tomosynthesis screening BI Accession Number(s): [id number] cc: Lashawn Song MD EXAMINATION: MM SCREENING DIGITAL BREAST TOMOSYNTHESIS, BILATERAL CLINICAL INFORMATION: Screening. Asymptomatic. COMPARISON: Mammography: This study is compared with prior exams dating back to 2018. TECHNIQUE: Digital breast tomosynthesis is performed in both the craniocaudal and mediolateral oblique views along with computer-aided detection (CAD). Synthesized 2D images are generated from the tomosynthesis. FINDINGS: There are scattered areas of fibroglandular density (ACR BI-RADS breast composition Category b). There are no significant masses, abnormal calcifications, or other abnormalities. MM/MM tomosynthesis screening BI IMPRESSION: No mammographic evidence of malignancy. ASSESSMENT: BI-RADS BI-RADS 1 - Negative RECOMMENDATION: Routine annual mammography screening. 1 year F/U This examination should not preclude the clinical evaluation of a suspicious palpable abnormality. This patient's information was entered into a reminder system with a target due date for their next mammogram. Dictated By: Nancy Campbell MD Signed By: <Electronically signed by Nancy Campbell MD in OV> 10/03/23 0857 DD/ 30 TD/TT: Breaker Mechanic: Procedure Note Donotuseinterpreter, Image - 10/03/2023 [facility] [address] [place] [address] Mammography Report Signed Patient: Tulio Nova#: [id number] : 1965Acct:[id number] Age/Sex: 57 / FADM Date: 09/03/23 Loc: HO.MAMMO Attending Dr: Lashawn Song MD Ordering Physician: Lashawn Song MDResults: 1 Negative Date of Service: 09/03/23Follow Up: 1 Year From Orig inal Mammogram Procedure(s): MM tomosynthesis screening BI Accession Number(s): [id number] cc: Lashawn Song MD EXAMINATION: MM SCREENING DIGITAL BREAST TOMOSYNTHESIS, BILATERAL CLINICAL INFORMATION: Screening. Asymptomatic. COMPARISON: Mammography: This study is compared with prior exams dating back to 2018. TECHNIQUE: Digital breast tomosynthesis is performed in both the craniocaudal and mediolateral oblique views along with computer-aided detection (CAD). Synthesized 2D images are generated from the tomosynthesis. FINDINGS: There are scattered areas of fibroglandular density (ACR BI-RADS breast composition Category b). There are no significant masses, abnormal calcifications, or other abnormalities. MM/MM tomosynthesis screening BI IMPRESSION: No mammographic evidence of malignancy. ASSESSMENT: BI-RADS BI-RADS 1 - Negative RECOMMENDATION: Routine annual mammography screening. 1 year F/U This examination should not preclude the clinical evaluation of a suspicious palpable abnormality. This patient's information was entered into a reminder system with a target due date for their next mammogram. Dictated By: Nancy Campbell MD Signed By: <Electronically signed by Nancy Campbell MD in OV> 10/03/23 0857 DD/ 30 TD/TT: Breaker Mechanic: us Lashawn Song MD IMG BI PROCEDURES Final Res ult * (ABNORMAL) Cologuard?? colon cancer screening (03/18/2023 11:45 AM EST) Cologuard Result Positive( A) Negative 03/22/2023 8:44 AM EST [email or web address] (CLIA #:[id number]) Comment: POSITIVE TEST RESULT. A positive Cologuard result should be followed with a colonoscopy or visual examination of the colon. The normal value (reference range) for this assay is negative. TEST DESCRIPTION: Composite algorithmic analysis of stool DNA-biomarkers with hemoglobin immunoassay. Quantitative values of individual biomarkers are not reportable and are not associated with individual biomarker result reference ranges. Cologuard is intended for colorectal cancer screening of adults of either sex, 45 years or older, who are at average-risk for colorectal cancer (CRC). Cologuard has been approved for use by the U.S. FDA. The performance of Cologuard was established in a cross sectional study of average-risk adults aged 50-84. Cologuard performance in patients ages 45 to 49 years was estimated by sub-group analysis of near-age groups. Colonoscopies performed for a positive result may find as the most clinically significant lesion: colorectal cancer [4.0%], advanced adenoma (including sessile serrated polyps greater than or equal to 1cm diameter) [20%] or non- advanced adenoma [31%]; or no colorectal neoplasia [45%]. These estimates are derived from a prospective cross-sectional screening study of 10,000 individuals at average risk for colorectal cancer who were screened with both Cologuard and colonoscopy. (Zack Beach et al, N Engl J Med 2014;370(14):3260-8050.) Cologuard may produce a false negative or false positive result (no colorectal cancer or precancerous polyp present at colonoscopy follow up). A negative Cologuard test result does not guarantee the absence of CRC or advanced adenoma (pre-cancer). The current Cologuard screening interval is every 3 years. ([employer] and U.S. Multi-Society Task Force). Cologuard performance data in a 10,000 patient pivotal study using colonoscopy as the reference method can be accessed at the following location: www.[employer]/results. Additional description of the Cologuard test process, warnings and precautions can be found at www.cologuard.com. Stool specimen (specimen) 03/18/2023 11:45 AM EST 03/20/2023 2:35 PM EST Lashawn Song MD LAB MOLECULAR DIAGNOSTICS O RDERABLES Final Result [email or web address] (CLIA #:[id number]) [place] [address], * HIV 1/2 ANTIGEN/ANTIBODY,FOURTH GENERATION W/RFL (09/06/2021 11:15 AM EDT) HIV-1/2 ANTIGEN AND ANTIBODIES, 4TH GENERATION W/ REFLEX NON-REACT WADE NON-REACT WADE [facility] Comment: HIV-1 antigen and HIV-1/HIV-2 antibodies were not detected. There is no laboratory evidence of HIV infection. PLEASE NOTE: This information has been disclosed to you from records whose confidentiality may be protected by state law. If your state requires such protection, then the state law prohibits you from making any further disclosure of the information without the specific written consent of the person to whom it pertains, or as otherwise permitted by law. A general authorization for the release of medical or other information is NOT sufficient for this purpose. For additional information please refer to http://education.[employer]ik[employer].Work in Field/faq/FRU179 (This link is being provided for informational/ educational purposes only.) The performance of this assay has not been clinically validated in patients less than 2 years old. 09/06/2021 11:1 5 AM EDT us Lashawn Song MD LAB BLOOD ORDERABLES Final Result Performing Organization Address [facility]/ZIP Co de Phone Number [facility] [address] [place] [address], * THINPREP PAP (2019 3:00 PM EDT) Clinical Information: SEE COMMENT [facility] Comment:NA COMMENT SEE COMMENT [facility] Comment: EXPLANATORY NOTE: The Pap is a screening test for cervical cancer. It is not a diagnostic test and is subject to false negative and false positive results. It is most reliable when a satisfactory sample, regularly obtained, is submitted with relevant clinical findings and history, and when the Pap result is evaluated along with historic and current clinical information. Put In Beat Adjuster: SEE COMMENT [facility] Comment: CMG, CT(ASCP) CT screening location: [place] [id number] Interpretation/Resu lt: SEE COMMENT [facility] Comment:Negative for intraep ithelial lesion or malignancy. LMP: SEE COMMENT [facility] Comment:NA Prev. BX: NA [facility] Prev. PAP: SEE COMMENT [facility] Comment:NA SOURCE: SEE COMMENT [facility] Comment:CERVIX Statement Of Adequacy: SEE COMMENT [facility] Comment: Satisfactory for evaluation. Endocervical/transformation zone component present. 2019 3:00 PM EDT Marina Floyd [facility] LAB PATHOLOGY ORDERABLES Final Result [facility] [address] * HPV mRNA E6/E7 (2019 3:00 PM EDT) HPV nRNA E6/E7 Not Detected Not Detected [facility] Comment: This test was performed using the APTIMA HPV Assay ([employer] This assay detects E6/E7 viral messenger RNA (mRNA) from 14 high-risk HPV types (16,18,31,33,35,39,45,51,52,56,58,59,66,68). The analytical performance characteristics of this assay have been determined by [employer]. The modifications have not been cleared or approved by the FDA. This assay has been validated pursuant to the CLIA regulations and is used for clinical purposes. HPV nRNA E6/E7 Not Detected Not Detected [facility] Comment: This test was performed using the APTIMA HPV Assay ([employer] This assay detects E6/E7 viral messenger RNA (mRNA) from 14 high-risk HPV types (16,18,31,33,35,39,45,51,52,56,58,59,66,68). The analytical performance characteristics of this assay have been determined by [employer]. The modifications have not been cleared or approved by the FDA. This assay has been validated pursuant to the CLIA regulations and is used for clinical purposes. HPV nRNA E6/E7 Not Detected Not Detected [facility] Comment: This test was performed using the APTIMA HPV Assay ([employer] This assay detects E6/E7 viral messenger RNA (mRNA) from 14 high-risk HPV types (16,18,31,33,35,39,45,51,52,56,58,59,66,68). The analytical performance characteristics of this assay have been determined by [employer]. The modifications have not been cleared or approved by the FDA. This assay has been validated pursuant to the CLIA regulations and is used for clinical purposes. 2019 3:00 PM EDT Marina [facility] LAB BLOOD ORDERABLES Isabelle au Result [facility] [address] from Last 3 Months or Most Recently Relevant to Health Maintenance Insurance [facility] STANDARD MEDICARE Care Teams Siphon Operator Relationship Specialty Start Date End Date Lashawn Song MD [address] [place] [id number] PCP - General Internal Medicine 03/31/13
--- OUTSIDE RECORDS SUMMARY | 2025-02-05 01:10 | XMS_ITS | Encounter Summary ---
Author Organization [employer] Address [address] [facility] [address] [place] [address] Care Team Providers Care Electrodynamicist Name Role Phone Lashawn Song MD Primary Care Provider [phone] Reason for Referral * Imaging (Routine) - Closed Specialty Diagnoses / Procedures Referred By Contac t Referred To Contact Radiology Diagnoses Low back pain at multiple sites Procedures MR Lumbar Spine w/o Contrast Lashawn Song MD [address] [place] [address] Phone: tel: fax: [address] Phone: tel: fax: Referral ID Status Reason Start Date Expiration Date Visits Re quested Visits Authorized [id number] Closed 05/23/2023 05/22/2024 1 1 Encounter Details Date Type Department Care Team (Late st Contact Info) Description 05/23/2023 Orders Only [facility] [address] [place], [place] [phone] Lashawn Song MD [address], [place] [phone] Low back pain at multiple sites (Primary Dx) Social History Tobacco Use Types Packs/Day Years [...] Type Priority Associated Diagnoses Orde r Schedule MR Lumbar Spine w/o Contrast Imaging Routine Low back pain at multiple sites Expected: 05/23/2023, Expires: 05/22/2024 documented as of this encounter Visit Diagnoses Diagnosis Low back pain at multiple sites- Primary documented in this encounter Care Teams Electrodynamicist Relationship Specialty Start Date End Date Lashawn Song MD [address] [place] [id number] PCP - General Internal Medicine 03/31/13 documented as of this encounter
[2025-02-05 01:19] LABS: Potassium 4.3 mmol/L (3.3-5.1)
[2025-02-05 01:30] VITALS: BP 137/81; PULSE 63; RESP 16; TEMP 36.6; O2SAT 96
[2025-02-05 01:36] LABS: Appearance Urine Clear; Glucose Urine UA Negative (Negative); PH 8.0 (5.0-9.0); Specific Gravity - Urine <= 1.005 (1.005-1.025)
[2025-02-05 02:34] VITALS: BMI 23.2
[2025-02-05 02:54] VITALS: PULSE 60; RESP 18; TEMP 36.2; O2SAT 98
[2025-02-05] MEDS: Sodium,Potassium Phosphates POWD.PACK 2 PACKET PO ×3 (03:13→20:54)
[2025-02-05] MEDS: Potassium Phosphate/NS 15 MMOL/250 ML PLAST..BAG 62.5 MMOL IV ×2 (03:16→09:28)
[2025-02-05 07:10] VITALS: BP 147/79; PULSE 58; RESP 20; TEMP 36.9; O2SAT 98
[2025-02-05 08:35] LABS: MANUAL DIFF FLAG NO
[2025-02-05 08:38] LABS: Hematocrit 37.9 % (37.0-47.0); Hemoglobin 12.6 g/dl (12.0-16.0); Imm Gran Abs Auto 0.02 X10*3/uL (0.00-0.03); Imm Gran Pct Auto 0.3 % (0.0-0.4); Lymphocytes Absolute Auto 2.0 X10*3/uL (1.2-4.9); Mean Corpuscular HGB Conc 33.2 g/dl (31.0-35.0); Mean Corpuscular Hemoglobin 31.7 pg (27.0-33.0); Mean Corpuscular Volume 95.5 fL (80.0-98.0); NRBC Abs Auto 0.000 X10*3/uL (0.0-0.012); NRBC Pct Auto 0.0 /100WBC (0.0-0.2); Platelet Count 236 X10*3/uL (160-400); Red Blood Count 3.97 X10*6/uL (4.20-5.50); White Blood Count 7.6 X10*3/uL (4.8-10.8)
[2025-02-05 08:55] LABS: Anion Gap 10 (12-20); Blood Urea Nitrogen 8 mg/dL (9-16); Calcium 11.9 mg/dL (8.4-10.2); Carbon Dioxide 22 mmol/L (22-29); Chloride 117 mmol/L (96-108); Creatinine Clr Calc Pharmacy 47.7; Estimated Glomerular Filt Rate 60; Magnesium 2.0 mg/dL (1.6-2.6); Potassium 4.4 mmol/L (3.3-5.1); Sodium 145 mmol/L (135-145)
--- NOTE | 2025-02-05 09:33 | PHA.MEDREC ---
Pharmacy Consult ? Medication Reconciliation Pharmacy has completed the medication reconciliation. Spoke to patient and daughter on the phone to confirm medication list. Per daughter, dose of levothyroxine has been increased to 88 mcg daily, patient was prescribed topiramate (for migraine) but hasn't started taking it yet. Both daughter and patient are unsure if patient is taking alendronate. Last dose of medications was yesterday 02/04/25.
[2025-02-05 12:00] VITALS: BP 152/74; PULSE 56; RESP 16; TEMP 36.7; O2SAT 98
[2025-02-05 12:45] LABS: Appearance Urine Clear; Glucose Urine UA Negative (Negative); PH 7.5 (5.0-9.0); Specific Gravity - Urine <= 1.005 (1.005-1.025)
--- NOTE | 2025-02-05 14:55 | MHC.CM.PN ---
IMM delivered. Patient lives alone. Hx CVA. [place] - has hearing aid. Ambulates w/ walker. Also has a cane. Granddaughter is MUSIC INSTRUCTOR, patient estimates 4 MUSIC INSTRUCTOR hrs/day. Daughter, Kayla, also assists PRN. PCP Lashawn Song MD Reports she has an HCP naming her daughter, Kayla, as HCA. Copy requested. DP: Goal is home, resume MUSIC INSTRUCTOR services. Agrees to VNA services if recommended. No preference to agency. Daughter to transport. CM will continue to follow.
--- NOTE | 2025-02-05 15:14 | PM.EVENT ---
Event Note Date of Service: 02/05/25 Event Note: Chart reviewed patient examined agree with H&P as outlined. Nuclear study pending. We will follow calcium and divalent Time Spent With Patient Time: Total time managing care of this patient today ____ minutes.
[2025-02-05 15:22] VITALS: BP 150/80; PULSE 60; RESP 17; TEMP 36.3; O2SAT 97
[2025-02-05 19:14] VITALS: BP 136/84; PULSE 52; RESP 18; TEMP 36.2; O2SAT 98
[2025-02-06] VITALS (7 sets, daily range): BP systolic 117–168; BP diastolic 68–82; PULSE 44–65; RESP 15–18; TEMP 36–36.8; O2SAT 95–98
--- NOTE | 2025-02-06 | ECG_ITS ---
Test Reason : bradycardia Blood Pressure : */* mmHG Vent. Rate : 39 BPM Atrial Rate : 39 BPM P-R Int : 178 ms QRS Dur : 92 ms QT Int : 404 ms P-R-T Axes : 49 0 3 degrees QTcB Int : 325 ms Marked sinus bradycardia Nonspecific T wave abnormality Abnormal ECG When compared with ECG of 04-Feb-2025 22:23, Vent. rate has decreased by 32 bpm Referred By: Paty Esparza Electronically Signed By: MALIK AKUR MD
--- NOTE | 2025-02-06 04:20 | PC.NURSE ---
during routine VS pt HR 39, other VS stable and documented. Monitored pt HR - sustained low 40s and occassionally dipped to 39. Provider Vilma notified. EKG, telemetry and VBG ordered.
--- NOTE | 2025-02-06 04:27 | PM.EVENT ---
Event Note Date of Service: 02/06/25 Event Note: Report from nursing, pt sleeping, HR during vital check 39-41. ECG requested, Marked SB, OK 178, Qtc 325. Hemodynamics otherwise stable. Patient is not on any AV valentina blocking agents. The stat calcium requested. Patient is here for hypercalcemia. Labs currently pending. Cardiology consulted. Echocardiogram requested. VBG 7.39, 32, 144 and 20. No evidence of CO2 retention or CHRISTINE. Reviewed plan of care with nursing staff. Sign-out provided to day provider. Time Spent With Patient Time: Total time managing care of this patient today ____ minutes.
[2025-02-06 05:39] LABS: MANUAL DIFF FLAG NO; Venous Blood Gas Refer to POC result
[2025-02-06 05:40] LABS: Hematocrit 34.7 % (37.0-47.0); Hemoglobin 11.3 g/dl (12.0-16.0); Imm Gran Abs Auto 0.02 X10*3/uL (0.00-0.03); Imm Gran Pct Auto 0.3 % (0.0-0.4); Lymphocytes Absolute Auto 2.6 X10*3/uL (1.2-4.9); Mean Corpuscular HGB Conc 32.6 g/dl (31.0-35.0); Mean Corpuscular Hemoglobin 31.7 pg (27.0-33.0); Mean Corpuscular Volume 97.2 fL (80.0-98.0); NRBC Abs Auto 0.000 X10*3/uL (0.0-0.012); NRBC Pct Auto 0.0 /100WBC (0.0-0.2); Platelet Count 200 X10*3/uL (160-400); Red Blood Count 3.57 X10*6/uL (4.20-5.50); White Blood Count 6.8 X10*3/uL (4.8-10.8)
[2025-02-06 05:40] LABS: VBG HCO3 20 mmol/L (22-26); VBG O2 % Saturation 99.0 %
[2025-02-06 05:58] LABS: Alanine Aminotransferase 17 U/L (0-31); Albumin Level 3.1 g/dL (3.5-5.0); Alkaline Phosphatase 65 U/L (39-117); Anion Gap 6 (12-20); Aspartate Amino Transferase 17 U/L (5-31); Blood Urea Nitrogen 8 mg/dL (9-16); Calcium 10.8 mg/dL (8.4-10.2); Carbon Dioxide 18 mmol/L (22-29); Chloride 120 mmol/L (96-108); Creatinine Clr Calc Pharmacy 53.9; Estimated Glomerular Filt Rate > 60; Potassium 4.2 mmol/L (3.3-5.1); Sodium 140 mmol/L (135-145); Total Protein 5.5 g/dL (6.5-8.0)
[2025-02-06 06:39] LABS: Calcium 10.7 mg/dL (8.4-10.2)
[2025-02-06] MEDS: Sodium,Potassium Phosphates POWD.PACK 2 PACKET PO ×2 (09:19→21:06)
--- NOTE | 2025-02-06 12:14 | P.PNIM_ITS ---
Subjective Subjective Date of Service: 02/06/25 Interval History: Calcium improving with response to therapy. Mild asymptomatic bradycardic noted. Review of Systems Denies chest pain Denies shortness of breath Denies nausea vomiting diarrhea Denies fever chills Physical Exam 2 Vital Signs: Vital Signs: Last Vital Signs Temp 97.2 F 02/06/25 07:56 Pulse 44 L 02/06/25 07:56 Resp 15 02/06/25 07:56 BP 168/82 H 02/06/25 07:56 Pulse Ox 96 02/06/25 07:56 O2 Del Method Room Air 02/06/25 07:56 O2 Flow Rate 97 02/06/25 03:35 BMI result Body Mass Index 23.2 Const: Other: Awake alert no acute distress Resp: Other: Clear to auscultation bilaterally no rales rhonchi or wheezes Cardio: Other: No S4; positive S1-S2; no S3 murmurs rubs or gallops GI: Other: Soft nontender nondistended normoactive bowel sounds Extrem: Other: No edema bilaterally Objective Data Active Medications Acetaminophen (Acetaminophen 325 Mg Tablet) 975 mg PO Q6H PRN PRN Reason: Pain, Mild 1-3,fever,headache Enoxaparin Sodium (Enoxaparin Sodium 40 Mg/0.4 Ml Syringe) 40 mg SUBCUT Q24H [facility] Last Admin: 02/06/25 09:19 Dose: 40 mg Documented By: KERRI Sodium Chloride (Ns) 1,000 mls @ 150 mls/hr IVCONT .Q6H40M [facility] Last Admin: 02/06/25 06:08 Dose: 150 mls/hr Documented By: LAQUITA Melatonin (Melatonin 3 Mg Tablet) 6 mg PO BEDTIME PRN PRN Reason: Insomnia Potassium Phos/Sodium Phos (Sodium,Potassium Phosphates Powd.Pack) 2 packet PO BID [facility] Last Admin: 02/06/25 09:19 Dose: 2 packet Documented By: KERRI Sodium Chloride (0.9 % Sodium Chloride Flush 3 Ml Syringe) 3 ml IVFLUSH QSHIFT [facility] Last Admin: 02/06/25 09:18 Dose: Not Given Documented By: KERRI Non-Admin Reason: IV Running Labs 02/06/25 05:32 02/06/25 05:32 Labs: Laboratory Results - last 24 hr 02/05/25 02/06/25 02/06/25 12:30 05:32 05:32 MCV 97.2 MCH 31.7 MCHC 32.6 RDW 13.0 Plt Count 200 MPV 9.0 L Immature Gran % (Auto) 0.3 Neut % (Auto) 47.3 Lymph % (Auto) 38.8 [place] % (Auto) 10.6 Eos % (Auto) 2.7 Baso % (Auto) 0.3 Lymph # (Auto) 2.6 [place] # (Auto) 0.7 Eos # (Auto) 0.2 Baso # (Auto) 0.0 Abs Immat Gran (auto) 0.02 Absolute Neuts (auto) 3.2 Absolute Nucleated RBC 0.000 Nucleated RBC % (auto) 0.0 VBG pH VBG pCO2 VBG pO2 VBG HCO3 VBG O2 Saturation VBG Base Excess Anion Gap 6 L Estim Creat Clear Calc 53.9 Estimated GFR > 60 Fasting Glucose 96 Calcium 10.8 H D 10.7 H Total Bilirubin 0.2 AST 17 ALT 17 Alkaline Phosphatase 65 Total Protein 5.5 L Albumin 3.1 L Urine Color Yellow Urine Appearance Clear Urine pH 7.5 Ur Specific [place] <= 1.005 Urine Protein Negative Urine Glucose (UA) Negative Urine Ketones Negative Urine Blood Negative Urine Nitrite Negative Ur Leukocyte Esterase Negative 02/06/25 05:36 MCV MCH MCHC RDW Plt Count MPV Immature Gran % (Auto) Neut % (Auto) Lymph % (Auto) [place] % (Auto) Eos % (Auto) Baso % (Auto) Lymph # (Auto) [place] # (Auto) Eos # (Auto) Baso # (Auto) Abs Immat Gran (auto) Absolute Neuts (auto) Absolute Nucleated RBC Nucleated RBC % (auto) VBG pH 7.39 VBG pCO2 32 VBG pO2 144 VBG HCO3 20 L VBG O2 Saturation 99.0 VBG Base Excess -4.0 Anion Gap Estim Creat Clear Calc Estimated GFR Fasting Glucose Calcium Total Bilirubin AST ALT Alkaline Phosphatase Total Protein Albumin Urine Color Urine Appearance Urine pH Ur Specific [place] Urine Protein Urine Glucose (UA) Urine Ketones Urine Blood Urine Nitrite Ur Leukocyte Esterase Assessment and Plan (1) Hyperparathyroidism: Status: Acute (2) Hypercalcemia: Status: Acute Plan Ana Nova is a 59 y/o woman with a PMHx osteoporosis on calcium pills vitamin- D who presents with: 1. Primary hyperparathyroidism -continue hydration -pamidronate IV... Responding to therapies -parathyroid nuclear scan in a.m.; we will discuss with endocrinology pending results 2.Schwannoma -stable and well compensated 3. Hypothyroidism -mild elevation in TSH with normal free T4 -continue outpatient supplementation 4.Osteoporosis -hold therapies at this time -endocrine can restart when appropriate Full Lovenox Patient requires ongoing hospitalization for IV pamidronate to treat hypercalcemia pending nuclear scan Quality Stroke Does the patient have a stroke diagnosis?: No VTE Prior VTE?: No VTE Risk Level:: Medical - moderate - high VTE Device Contraindication: Treatment Not Indicated VTE Drug Contraindication: N/A - Med Ordered
[2025-02-07 03:51] VITALS: BP 101/55; PULSE 59; RESP 16; TEMP 36.4; O2SAT 99
--- NOTE | 2025-02-07 07:00 | CA_ITS ---
Transthoracic Echocardiogram Patient (Last, First, Middle): Ana Nova, Gender: F Date of : 1965 Age: 59 Procedure Date: 02/07/2025 Procedure Type: Transthoracic Echocardiogram Location: S3E Height: 149.86 cm Weight: 51.71 kg BSA: 1.45 m2 Heart Rate: 64 bpm BP: 101 / 55 mmHg Medical Assistant Internal Medicine: CHETAN Referring MD: Paty ANGUIANOPMurray Symptoms: new onset bradycardia Study Quality: Adequate ECG Rhythm: Sinus Conclusions: - The left ventricular systolic function is normal. The calculated ejection fraction is 69% by biplane method. - No obvious valvular pathology seen on this study. Findings Left Ventricle Normal left ventricular cavity size. The left ventricular systolic function is normal. The calculated ejection fraction is 69% by biplane method. There is no evidence of regional wall motion abnormalities. Diastolic function is normal for age. There is mild septal asymmetric hypertrophy. Right Ventricle Normal right ventricular cavity size and systolic function. Atria Both atria are normal in size. Aortic Valve There is a normal trileaflet aortic valve. There is no aortic valve stenosis. There is no aortic valve regurgitation. Mitral Valve The mitral valve appears normal. There is no mitral valve regurgitation. There is no mitral valve stenosis. Pulmonic Valve The pulmonic valve is likely normal. Tricuspid Valve There is no tricuspid valve regurgitation. Tricuspid regurgitation envelope is inadequate for calculation of right ventricular systolic pressure. Great Vessels The asc aorta is normal in size. Venous The inferior vena cava is normal in size and collapses greater than 50% with inspiration. Pericardium/Pleural There is no evidence of pericardial effusion. Prior Study Comparison No prior study available for comparison. Recommendations, Care & Conclusions No obvious valvular pathology seen on this study. Measurements 2D Linear Measurements IVSd: 1.10 0.6-0.9/0.6-1.0 cm LVIDd: 4.08 3.9-5.3/4.2-5.9 cm LVIDd Index: 2.81 2.4-3.2/2.2-3.1 cm/m2 LVIDs: 2.40 2.0-3.6 cm LVPWd: 0.86 0.7-1.1 cm LA Diam: 2.90 2.7-3.8/3.0-4.0 cm LAIDs Index: 2.00 1.5-2.3 cm/m2 LV Mass: 158.42 67-162/88-224 g LV Mass Index: 109.25 43-95/49-115 g/m2 LVOT Diam: 1.80 3.0+(-)1.3 cm 2D Systolic Function EF 4C: 73.00 >55% EF 2C: 65.60 >55% EF BiP: 68.90 >55% Mitral Valve MV Pk E: 0.88 MV PK A: 1.05 MV Decel Time: 201.00 E/A: 0.80 E'Lateral: 10.20 E'Medial: 7.51 E/E' Med: 11.70 E/E' Lat: 8.60 PHT: 59.00 MVA PHT: 3.73 Decel [place]: 4.38 Aortic Valve AoV Pk Perez: 1.62 AoV Pk Grad: 10.00 [place]: 2.00 LVOT LVOT Pk Perez: 1.34 LVOT Mn Perez: 0.95 LVOT VTI: 0.27 LVOT Pk Grad: 7.00 LVOT Mn Grad: 4.00 LVOT Diam: 1.80 LVOT Area: 2.54 Diastolic Function MV Pk E: 0.88 MV Pk A: 1.05 E/A: 0.80 E'Medial: 7.51 E/E' Med: 11.70 E' Laterial: 10.20 E/E' Lat: 8.60 Right Ventricle TAPSE (mm): 18.20 TVS' Perez: 12.50 Tricuspid Valve RA Press: 3.00 Great Vessels Aorta Sinus of Valsalva: 2.50 2.0-3.5 cm Ao Asc: 2.70 2.1-3.4 cm Ao Arch: 2.30 Pulmonary Veins Pulm Vein S/D 1.30 Pulmonary Valve PV Pk Perez: 0.85 Peak PV Grad: 3.00 Updated in Other Vendor System with Status of Final Crescencio Westfall MD electronically signed on 02/07/2025 12:30:12 PM with status of Final
[2025-02-07 07:52] VITALS: BP 138/72; PULSE 53; RESP 18; TEMP 36.6; O2SAT 97
[2025-02-07] MEDS: Sodium,Potassium Phosphates POWD.PACK 2 PACKET PO ×2 (08:32→19:45)
[2025-02-07 08:50] LABS: Alanine Aminotransferase 18 U/L (0-31); Albumin Level 3.6 g/dL (3.5-5.0); Alkaline Phosphatase 79 U/L (39-117); Anion Gap 7 (12-20); Aspartate Amino Transferase 18 U/L (5-31); Blood Urea Nitrogen 17 mg/dL (9-16); Calcium 10.9 mg/dL (8.4-10.2); Carbon Dioxide 25 mmol/L (22-29); Chloride 114 mmol/L (96-108); Creatinine Clr Calc Pharmacy 42.0; Estimated Glomerular Filt Rate 52; Potassium 4.8 mmol/L (3.3-5.1); Sodium 141 mmol/L (135-145); Total Protein 6.2 g/dL (6.5-8.0)
--- NOTE | 2025-02-07 09:41 | MHC.CLN ---
CONSULT CONSULT FOR ANOREXIA. PATIENT WITH STABLE WEIGHT X 8 MONTHS. BMI=23,2, NORMAL WEIGHT. DIET RX: REGULAR. PO INTAKE VERY GOOD DURING ADM. NO NEW NUTRITION INTERVENTIONS.
[2025-02-07 11:34] VITALS: BP 159/69; PULSE 60; RESP 17; TEMP 36.1; O2SAT 99
--- NOTE | 2025-02-07 14:26 | HO.PM.IMPN ---
Subjective Subjective Date of Service: 02/07/25 Interval History: No acute issues overnight. Calcium stable Review of Systems Denies chest pain Denies shortness of breath Denies nausea vomiting diarrhea Denies fever chills Physical Exam Vital Signs: Vital Signs: Last Vital Signs Temp 97.0 F 02/07/25 11:34 Pulse 60 02/07/25 11:34 Resp 17 02/07/25 11:34 BP 159/69 H 02/07/25 11:34 Pulse Ox 99 02/07/25 11:34 O2 Del Method Room Air 02/07/25 11:34 O2 Flow Rate 97 02/06/25 03:35 BMI result Body Mass Index 23.2 Const: Other: Awake alert no acute distress Resp: Other: Clear to auscultation bilaterally no rales rhonchi or wheezes Cardio: Other: No S4; positive S1-S2; no S3 murmurs rubs or gallops GI: Other: Soft nontender nondistended normoactive bowel sounds Extrem: Other: No edema bilaterally Objective Data Active Medications Acetaminophen (Acetaminophen 325 Mg Tablet) 975 mg PO Q6H PRN PRN Reason: Pain, Mild 1-3,fever,headache Atorvastatin Calcium (Atorvastatin Calcium 80 Mg Tablet) 80 mg PO DAILY [facility] Last Admin: 02/07/25 08:32 Dose: 80 mg Documented By: DENIA Enoxaparin Sodium (Enoxaparin Sodium 40 Mg/0.4 Ml Syringe) 40 mg SUBCUT Q24H [facility] Last Admin: 02/07/25 08:32 Dose: 40 mg Documented By: DENIA Sodium Chloride (Ns) 1,000 mls @ 100 mls/hr IVCONT .Q10H [facility] Last Admin: 02/07/25 08:32 Dose: 100 mls/hr Documented By: DENIA Levothyroxine Sodium (Levothyroxine Sodium 88 Mcg Tablet) 88 mcg PO DAILY@0600 [facility] Last Admin: 02/07/25 05:33 Dose: 88 mcg Documented By: LAQUITA Meclizine HCl (Meclizine Hcl 25 Mg Tablet) 25 mg PO BID PRN PRN Reason: dizziness Melatonin (Melatonin 3 Mg Tablet) 6 mg PO BEDTIME PRN PRN Reason: Insomnia Potassium Phos/Sodium Phos (Sodium,Potassium Phosphates Powd.Pack) 2 packet PO BID [facility] Last Admin: 02/07/25 08:32 Dose: 2 packet Documented By: DENIA Sodium Chloride (0.9 % Sodium Chloride Flush 3 Ml Syringe) 3 ml IVFLUSH QSHIFT [facility] Last Admin: 02/07/25 07:46 Dose: Not Given Documented By: DENIA Non-Admin Reason: IV Running Labs 02/06/25 05:32 02/07/25 08:16 Labs: Laboratory Results - last 24 hr 02/07/25 08:16 Anion Gap 7 L Estim Creat Clear Calc 42.0 Estimated GFR 52 Random Glucose 90 Calcium 10.9 H Total Bilirubin 0.2 AST 18 ALT 18 Alkaline Phosphatase 79 Total Protein 6.2 L Albumin 3.6 Assessment and Plan (1) Hyperparathyroidism: Status: Acute (2) Hypercalcemia: Status: Acute Plan Ana Nova is a 59 y/o woman with a PMHx osteoporosis on calcium pills vitamin-D who presents with: 1. Primary hyperparathyroidism -continue hydration -pamidronate IV... given -parathyroid nuclear scan in a.m.; we will discuss with endocrinology pending results 2.Schwannoma -stable and well compensated 3. Hypothyroidism -mild elevation in TSH with normal free T4 -continue outpatient supplementation 4.Osteoporosis -hold therapies at this time -endocrine can restart when appropriate Full Lovenox Patient requires ongoing hospitalization for IV pamidronate to treat hypercalcemia pending nuclear scan Quality Stroke Does the patient have a stroke diagnosis?: No VTE Prior VTE?: No VTE Risk Level:: Medical - moderate - high VTE Device Contraindication: Treatment Not Indicated VTE Drug Contraindication: N/A - Med Ordered
--- NOTE | 2025-02-07 15:46 | MHC.CM.PN ---
pr rounds pt is having a cat scan today plan is for pt to go home when dcd
[2025-02-07 16:00] VITALS: BP 159/71; PULSE 64; RESP 19; TEMP 36.6; O2SAT 97
[2025-02-07 20:00] VITALS: BP 130/88; PULSE 63; RESP 20; TEMP 36.4; O2SAT 98
[2025-02-07 21:53] LABS: Calcium, Ionized 7.5 mg/dL (4.7-5.5)
[2025-02-07 23:42] VITALS: BP 132/70; PULSE 58; RESP 14; TEMP 36; O2SAT 96
[2025-02-08 03:21] VITALS: BP 114/69; PULSE 55; RESP 14; TEMP 36; O2SAT 98
[2025-02-08 08:21] VITALS: BP 165/80; PULSE 62; RESP 16; TEMP 36.3; O2SAT 99
[2025-02-08] MEDS: Sodium,Potassium Phosphates POWD.PACK 2 PACKET PO ×2 (08:54→19:58)
[2025-02-08 10:26] LABS: Alanine Aminotransferase 19 U/L (0-31); Albumin Level 4.0 g/dL (3.5-5.0); Alkaline Phosphatase 88 U/L (39-117); Anion Gap 9 (12-20); Aspartate Amino Transferase 23 U/L (5-31); Blood Urea Nitrogen 14 mg/dL (9-16); Calcium 11.5 mg/dL (8.4-10.2); Carbon Dioxide 25 mmol/L (22-29); Chloride 113 mmol/L (96-108); Creatinine Clr Calc Pharmacy 44.5; Estimated Glomerular Filt Rate 55; Potassium 4.9 mmol/L (3.3-5.1); Sodium 142 mmol/L (135-145); Total Protein 6.8 g/dL (6.5-8.0)
--- NOTE | 2025-02-08 14:55 | HO.PM.IMPN ---
Subjective Subjective Date of Service: 02/08/25 Interval History: No acute issues overnight. Calcium rising slowly Review of Systems Denies chest pain Denies shortness of breath Denies nausea vomiting diarrhea Denies fever chills Physical Exam Vital Signs: Vital Signs: Last Vital Signs Temp 97.4 F 02/08/25 08:21 Pulse 62 02/08/25 08:21 Resp 16 02/08/25 08:21 BP 165/80 H 02/08/25 08:21 Pulse Ox 99 02/08/25 08:21 O2 Del Method Room Air 02/08/25 08:21 O2 Flow Rate 97 02/06/25 03:35 BMI result Body Mass Index 23.2 Const: Other: Awake alert no acute distress Resp: Other: Clear to auscultation bilaterally no rales rhonchi or wheezes Cardio: Other: No S4; positive S1-S2; no S3 murmurs rubs or gallops GI: Other: Soft nontender nondistended normoactive bowel sounds Extrem: Other: No edema bilaterally Objective Data Active Medications Acetaminophen (Acetaminophen 325 Mg Tablet) 975 mg PO Q6H PRN PRN Reason: Pain, Mild 1-3,fever,headache Atorvastatin Calcium (Atorvastatin Calcium 80 Mg Tablet) 80 mg PO DAILY [facility] Last Admin: 02/08/25 08:54 Dose: 80 mg Documented By: DENIA Enoxaparin Sodium (Enoxaparin Sodium 40 Mg/0.4 Ml Syringe) 40 mg SUBCUT Q24H [facility] Last Admin: 02/08/25 08:54 Dose: 40 mg Documented By: DENIA Levothyroxine Sodium (Levothyroxine Sodium 88 Mcg Tablet) 88 mcg PO DAILY@0600 [facility] Last Admin: 02/08/25 06:01 Dose: 88 mcg Documented By: LAQUITA Meclizine HCl (Meclizine Hcl 25 Mg Tablet) 25 mg PO BID PRN PRN Reason: dizziness Melatonin (Melatonin 3 Mg Tablet) 6 mg PO BEDTIME PRN PRN Reason: Insomnia Potassium Phos/Sodium Phos (Sodium,Potassium Phosphates Powd.Pack) 2 packet PO BID [facility] Last Admin: 02/08/25 08:54 Dose: 2 packet Documented By: DENIA Sodium Chloride (0.9 % Sodium Chloride Flush 3 Ml Syringe) 3 ml IVFLUSH QSHIFT [facility] Last Admin: 02/08/25 14:48 Dose: Not Given Documented By: DENIA Non-Admin Reason: IV Running Labs 02/06/25 05:32 02/08/25 09:26 Labs: Laboratory Results - last 24 hr 02/04/25 02/08/25 22:51 09:26 Anion Gap 9 L Estim Creat Clear Calc 44.5 Estimated GFR 55 Random Glucose 117 H Calcium 11.5 H Ionized Calcium 7.5 H* Total Bilirubin 0.3 AST 23 ALT 19 Alkaline Phosphatase 88 Total Protein 6.8 Albumin 4.0 Assessment and Plan (1) Hyperparathyroidism: Status: Acute (2) Hypothyroidism: Status: Acute Plan Ana Nova is a 59 y/o woman with a PMHx osteoporosis on calcium pills vitamin-D who presents with: 1. Primary hyperparathyroidism -continue hydration -pamidronate IV... given -parathyroid nuclear scan normal -await Endocrine input 2.Schwannoma -stable and well compensated 3. Hypothyroidism -mild elevation in TSH with normal free T4 -continue outpatient supplementation 4.Osteoporosis -hold therapies at this time -endocrine can restart when appropriate Full Lovenox Patient requires ongoing hospitalization for IV pamidronate to treat hypercalcemia pending nuclear scan Quality Stroke Does the patient have a stroke diagnosis?: No VTE Prior VTE?: No VTE Risk Level:: Medical - moderate - high VTE Device Contraindication: Treatment Not Indicated VTE Drug Contraindication: N/A - Med Ordered
[2025-02-08 19:27] VITALS: BP 109/57; PULSE 64; RESP 18; TEMP 36.4; O2SAT 95
[2025-02-08 23:31] VITALS: BP 110/59; PULSE 63; RESP 18; TEMP 36.6; O2SAT 97
[2025-02-09 03:54] VITALS: BP 116/63; PULSE 50; RESP 18; TEMP 36.4; O2SAT 98
[2025-02-09 05:46] LABS: MANUAL DIFF FLAG NO
[2025-02-09 05:50] LABS: Hematocrit 37.4 % (37.0-47.0); Hemoglobin 12.0 g/dl (12.0-16.0); Imm Gran Abs Auto 0.03 X10*3/uL (0.00-0.03); Imm Gran Pct Auto 0.4 % (0.0-0.4); Lymphocytes Absolute Auto 2.3 X10*3/uL (1.2-4.9); Mean Corpuscular HGB Conc 32.1 g/dl (31.0-35.0); Mean Corpuscular Hemoglobin 31.4 pg (27.0-33.0); Mean Corpuscular Volume 97.9 fL (80.0-98.0); NRBC Abs Auto 0.000 X10*3/uL (0.0-0.012); NRBC Pct Auto 0.0 /100WBC (0.0-0.2); Platelet Count 220 X10*3/uL (160-400); Red Blood Count 3.82 X10*6/uL (4.20-5.50); White Blood Count 7.0 X10*3/uL (4.8-10.8)
[2025-02-09 06:08] LABS: Alanine Aminotransferase 23 U/L (0-31); Albumin Level 3.3 g/dL (3.5-5.0); Alkaline Phosphatase 75 U/L (39-117); Anion Gap 7 (12-20); Aspartate Amino Transferase 25 U/L (5-31); Blood Urea Nitrogen 19 mg/dL (9-16); Calcium 10.7 mg/dL (8.4-10.2); Carbon Dioxide 26 mmol/L (22-29); Chloride 112 mmol/L (96-108); Creatinine Clr Calc Pharmacy 47.7; Estimated Glomerular Filt Rate 60; Potassium 4.6 mmol/L (3.3-5.1); Sodium 140 mmol/L (135-145); Total Protein 5.7 g/dL (6.5-8.0)
[2025-02-09 07:43] VITALS: BP 146/69; PULSE 58; RESP 16; TEMP 37.2; O2SAT 99
[2025-02-09] MEDS: Sodium,Potassium Phosphates POWD.PACK 2 PACKET PO (08:44)
[2025-02-09] MEDS: 0.9 % Sodium Chloride Flush 3 ML SYRINGE IVFLUSH (08:48)
[2025-02-09 12:00] VITALS: BP 118/68; PULSE 63; RESP 16; TEMP 36.2; O2SAT 97
--- NOTE | 2025-02-09 15:12 | P.DS_ITS ---
DS: Providers Provider Date of Service: 02/09/25 Date of admission: 02/05/25 00:01 Date of discharge: 02/09/25 Primary care physician: Lashawn Song MD Consults: 02/06/25 04:22 Consult to Cardiology Routine Consulting Provider: [facility] [place] [facility] Reason for consultation: Marked bradycardia overnight Has provider been notified: No DS: Diagnosis Discharge Diagnosis (1) Hyperparathyroidism: Status: Acute (2) Hypothyroidism: Status: Acute DS: Summary Hospital Course Hospital Course: 59 years old woman with past medical history significant for stroke, schwannoma status post surgery , vertigo, osteoporosis on calcium pills, alendronate and vitamin-D and hypothyroidism on hormone replacement presents to the emergency department complaining of dizziness over the last week and migraine headaches. She has been taking Topamax and Antivert without significant improvement of symptoms. she denied any chest pain, shortness on breath, loss of consciousness, abdominal pain, nausea, vomiting or diarrhea. She reported frequent urination. In the ED, she was found to have stable vital signs. Last blood pressure is 156/85. Blood workup showed hypernatremia that corrected 146--> 143, potassium 5.4, hyperchloremia 112, HC03 24, anion gap 10, BUN 13, creatinine 1.35 and hypercalcemia of 14.5 then 12.6. Phosphorus is 1.1 then 1.5. LFTs are normal. Albumin is 4.0. TSH is 5.78 and free T4 0.90. CXR is negative. ECG showed normal sinus rhythm, QTC 354 milliseconds. Hospital Course Patient admitted to general medical floor and aggressively volume repleted. She received a dose of pamidronate 90 mg in the ER. Her calcium remained stable between 10 and 11 5. PTH found to be greater than 750. She underwent a nuclear medicine study for parathyroids which were unremarkable. Case discussed with endocrinology who recommended surgical referral. Primary care provider was contacted personally () who will arrange for patient to see him in the office tomorrow. Ultimately she will need to see parathyroid surgeon at [facility]. She is discharged in stable condition at this time. Time Attestation Discharge Coordination Time (in mins): 35 Quality: Safe Use of Opioids Does Pt have an Active Cancer Diagnosis on the Problem List?: No Quality: Stroke Does the patient have a stroke diagnosis?: No Physical Exam Vital Signs: Vital Signs: Last Vital Signs Temp 97.2 F 02/09/25 12:00 Pulse 63 02/09/25 12:00 Resp 16 02/09/25 12:00 BP 118/68 02/09/25 12:00 Pulse Ox 97 02/09/25 12:00 O2 Del Method Room Air 02/09/25 12:00 O2 Flow Rate 97 02/06/25 03:35 BMI result Body Mass Index 23.2 Const: Other: Awake alert no acute distress Resp: Other: Clear to auscultation bilaterally no rales rhonchi or wheezes Cardio: Other: No S4; positive S1-S2; no S3 murmurs rubs or gallops GI: Other: Soft nontender nondistended normoactive bowel sounds Extrem: Other: No edema bilaterally DS: Data Data Completed and Pending Labs on day of discharge: Laboratory Results - last 24 hr 02/09/25 05:38 WBC 7.0 RBC 3.82 L Hgb 12.0 Hct 37.4 MCV 97.9 MCH 31.4 MCHC 32.1 RDW 13.5 Plt Count 220 MPV 9.0 L Immature Gran % (Auto) 0.4 Neut % (Auto) 52.9 Lymph % (Auto) 32.8 Borden % (Auto) 10.6 Eos % (Auto) 2.9 Baso % (Auto) 0.4 Lymph # (Auto) 2.3 Borden # (Auto) 0.7 Eos # (Auto) 0.2 Baso # (Auto) 0.0 Abs Immat Gran (auto) 0.03 Absolute Neuts (auto) 3.7 Absolute Nucleated RBC 0.000 Nucleated RBC % (auto) 0.0 Sodium 140 Potassium 4.6 Chloride 112 H Carbon Dioxide 26 Anion Gap 7 L BUN 19 H Creatinine 0.96 Estim Creat Clear Calc 47.7 Estimated GFR 60 Fasting Glucose 93 Calcium 10.7 H D Phosphorus 4.1 Total Bilirubin 0.2 AST 25 ALT 23 Alkaline Phosphatase 75 Total Protein 5.7 L Albumin 3.3 L Discharge Plan Discharge Anticipated Discharge Date/Time: 02/09/25 15:04 Patient Disposition: Home Health Service Discharge Diagnosis: Hyperparathyroidism Referrals: [facility]ille ROJAS [Outside] - 1 Day Referral Note: [facility] ROJ[facility] will call you to schedule home visits Lashawn Song MD [Primary Care Provider, Medical] - 1 Week Discharge Medications: Continued levothyroxine 88 mcg tablet 88 mcg PO DAILY@0600 rosuvastatin 40 mg tablet 40 mg PO DAILY meclizine 25 mg tablet 25 mg PO BID PRN (Reason: dizziness) Qty: 10 0RF Discontinued alendronate 70 mg tablet 70 mg PO QWEEK cholecalciferol (vitamin D3) 25 mcg (1,000 unit) tablet 25 mcg PO BEDTIME calcium carbonate-vitamin D3 500 mg-10 mcg (400 unit) tablet,chewable 1 tab PO BEDTIME Discharge Orders: Discharge Order (Routine); Ordered 02/09/25 Ordered By: Guerrero Magallanes Diet: Advance to usual diet Activity on Discharge: As tolerated Stand Alone Forms: Patient Portal Discharge page Print Language: [place] Care Plan Goals: Take only with medicines listed on your discharge summary Health Concerns: Dr. Song we will call you in the morning to arrange a follow up with him Plan of Treatment: Further plans as he indicates Assessment: See discharge summary
--- NOTE | 2025-02-09 15:13 | MHC.CM.PN ---
pt dcd today with hvns
--- NOTE | 2025-02-09 15:16 | P.F2F_ITS ---
Service Date Service Date: 02/09/25 Encounter Date of encounter: 02/09/25 Encounter: Acute hospitalization Reasons for Services Signs and symptoms assessed: Med management and physical therapy Reason for senior care: medication management and teach disease management Reason for physical therapy: home safety and mobility and gait/transfer training Homebound: Leaving the home is medically contraindicated at this time without the asist of a device and/or another person due th the listed conditions above and below. Reason homebound: unsteady gait / fall risk and unable to drive Certification: Based on the above findings, I certify that this patient is confined to the home and needs intermittent senior care care, physical therapy and/or speech therapy, or continues to need occupational therapy. The patient is under my care, and I have initiated the establishment of the plan of care. The patient will be followed by a physician who will periodically review the plan of care. Time Spent With Patient Time: Total time managing care of this patient today ____ minutes.
[2025-02-09 16:00] VITALS: BP 144/86; PULSE 90; RESP 19; TEMP 37.3; O2SAT 95
[2025-02-09 18:13] LABS: Prot Elec - Albumin 4.3 g/dL (3.8-4.8); Prot Elec - Alpha1 0.3 g/dL (0.2-0.3); Prot Elec - Alpha2 0.8 g/dL (0.5-0.9); Prot Elec - Beta 1 0.4 g/dL (0.4-0.6); Prot Elec - Beta 2 0.4 g/dL (0.2-0.5); Prot Elec - Gamma 1.3 g/dL (0.8-1.7); Prot Elec - Total Protein 7.4 g/dL (6.1-8.1)
[2025-02-10 17:39] LABS: VITAMIN D (1,25 OH) D3 52 pg/mL; Vit D (1,25-Dihydroxy) Total 52 pg/mL (18-72); Vitamin D (1,25 OH) D2 <8 pg/mL
== END 2025-02-09 16:00 | disposition home health service (06) | DRG 645 ==
LOC: HO.ED 02-05 00:04 → HO.EDOVER 02-05 00:12 → HO.S3 02-05 00:44
PROVIDERS: Nurse Practitioner Family; Physician Assistant; Admitting Provider Internal Medicine; Emergency Provider Student in an Organized Health Care Education/Training Program; PCP Internal Medicine; Visit Provider Hospitalist
DX: E21.0 Primary hyperparathyroidism (principal); E03.9 Hypothyroidism, unspecified; E78.5 Hyperlipidemia, unspecified; D36.10 Benign neoplasm of peripheral nerves and autonomic nervous system, unspecified; M81.0 Age-related osteoporosis without current pathological fracture; Z79.890 Hormone replacement therapy; Z79.899 Other long term (current) drug therapy
CPT/HCPCS: 36415; 71045; 78072; 80048; 80053; 80061; 81001; 81003; 82040; 82306; 82310; 82330; 82652; 82803; 83735; 83970; 84100; 84105; 84132; 84165; 84439; 84443; 85025; 87086; 93005; 93306; 97162; 99285; A9500; J1650

== ENCOUNTER → 2025-02-04 22:14 | Outpatient (BNV) | payer MEDICARE, MEDICAID, SELFPAY | PROVIDERS: Admitting Provider Internal Medicine; Emergency Provider Student in an Organized Health Care Education/Training Program; PCP Internal Medicine; Visit Provider Internal Medicine Cardiovascular Disease | DX: R10.9 Unspecified abdominal pain (principal) | CPT/HCPCS: 93010 ==

== ENCOUNTER 2025-02-05 00:01 | Outpatient (BNV) | payer MEDICARE, MEDICAID, SELFPAY | END 2025-02-05 00:13 | PROVIDERS: Admitting Provider Internal Medicine; Emergency Provider Student in an Organized Health Care Education/Training Program; PCP Internal Medicine; Visit Provider Radiology Diagnostic Radiology | DX: E83.52 Hypercalcemia (principal) | CPT/HCPCS: 71045 ==

== ENCOUNTER 2025-02-05 00:01 | Outpatient (BNV) | payer MEDICARE, MEDICAID, SELFPAY | END 2025-02-07 07:00 | PROVIDERS: Admitting Provider Internal Medicine; Emergency Provider Student in an Organized Health Care Education/Training Program; PCP Internal Medicine; Visit Provider Internal Medicine | DX: I42.2 Other hypertrophic cardiomyopathy (principal); R00.1 Bradycardia, unspecified | CPT/HCPCS: 93306 ==

== ENCOUNTER 2025-02-05 00:01 | Outpatient (BNV) | payer MEDICARE, MEDICAID, SELFPAY | END 2025-02-07 13:31 | PROVIDERS: Admitting Provider Internal Medicine; Emergency Provider Student in an Organized Health Care Education/Training Program; PCP Internal Medicine; Visit Provider Radiology Diagnostic Radiology | DX: E21.0 Primary hyperparathyroidism (principal) | CPT/HCPCS: 78072 ==

== ENCOUNTER 2025-02-05 00:01 | Outpatient (BNV) | payer MEDICARE, MEDICAID, SELFPAY | END 2025-02-06 04:10 | PROVIDERS: Admitting Provider Internal Medicine; Emergency Provider Student in an Organized Health Care Education/Training Program; PCP Internal Medicine; Visit Provider Internal Medicine Cardiovascular Disease | DX: R00.1 Bradycardia, unspecified (principal) | CPT/HCPCS: 93010 ==

== ENCOUNTER → 2025-02-05 00:01 | Outpatient (BNV) | payer MEDICARE, MEDICAID, SELFPAY | PROVIDERS: Admitting Provider Internal Medicine; Emergency Provider Student in an Organized Health Care Education/Training Program; PCP Internal Medicine; Visit Provider Internal Medicine | DX: E21.3 Hyperparathyroidism, unspecified (principal); E83.52 Hypercalcemia | CPT/HCPCS: 99223; 99233; 99499 ==

== ENCOUNTER 2025-03-01 11:02 | Outpatient (REF) | payer MEDICARE, MEDICAID, SELFPAY ==
--- NOTE | ~2025-03-01 | MM_ITS ---
EXAMINATION: MM SCREENING DIGITAL BREAST TOMOSYNTHESIS, BILATERAL CLINICAL INFORMATION: Screening. Asymptomatic. COMPARISON: Comparison made to multiple prior, most recent September 03, 2023, and most remote November 18, 2012. TECHNIQUE: Digital breast tomosynthesis is performed in mediolateral oblique and craniocaudal views along with computer-aided detection (CAD). Synthesized 2D images are generated from the tomosynthesis. FINDINGS: BREAST COMPOSITION: There are scattered areas of fibroglandular density. BILATERAL BREASTS: No significant masses, suspicious calcifications or other abnormalities are seen in either breast. MM/MM tomosynthesis screening BI IMPRESSION: BILATERAL BREASTS: Negative, no mammographic evidence of malignancy. Normal interval follow-up is recommended in 12 months. ASSESSMENT: BI-RADS: Category 1: Negative RECOMMENDATION: Routine annual mammography screening. FOLLOW-UP: 1 year F/U This examination should not preclude the clinical evaluation of a suspicious palpable abnormality. This patient's information was entered into a reminder system with a target due date for their next mammogram. Electronically signed by: Gray Morales MD 03/01/2025 05:58 PM [facility]
== END 2025-03-01 11:03 | disposition home or self-care (01) ==
LOC: HO.MAMMO 11:02
PROVIDERS: PCP Internal Medicine; Visit Provider Internal Medicine
DX: Z12.31 Encounter for screening mammogram for malignant neoplasm of breast (principal)
CPT/HCPCS: 77063; 77067

== ENCOUNTER → 2025-03-01 11:15 | Outpatient (BNV) | payer MEDICARE, MEDICAID, SELFPAY | PROVIDERS: PCP Internal Medicine; Visit Provider Radiology Body Imaging | DX: Z12.31 Encounter for screening mammogram for malignant neoplasm of breast (principal) | CPT/HCPCS: 77063; 77067 ==